=== PATIENT | male | born 1940 | race Caucasian/White ===

== ENCOUNTER 2016-12-17 14:57 | Observation (INO) ==
--- NOTE | 2016-12-17 15:12 | Emergency Department Note ---
Disposition Clinical Impression: Confusion, Slurred speech Disposition: Admitted As Inpatient Condition: Good Referrals: NO,PCP [Primary Care Provider] - Forms: ED Satisfaction Letter Altered Mental Status HPI - General Chief Complaint: ED Altered Mental Status Stated Complaint: AMS Time Seen by Provider: 12/17/16 15:08 Source: patient, family Mode of arrival: private vehicle Limitations: altered mental status Nursing Notes Reviewed: Yes Vital Signs Reviewed: Yes - History of Present Illness HPI Narrative: 76-year-old male presents to the ER with a chief complaint of altered mental status. Aneudy she reports that a few days ago she started noticing a change in his speech. She reports that today she was at her appointment and when they were leaving that he was confused and did not recognize her or remember where they parked the car. She reports that she got help and was transported up here for evaluation. She reports that he had a stroke many years ago at another facility. She reports at that time his deficits were difficulty speaking. She also states that for the last several days his blood pressure has been elevated in the 200 systolic at home. Patient is followed by cardiology who manages his antihypertensives. Patient is on aspirin and Plavix. He currently complains of feeling lightheaded. He denies numbness tingling. No other complaints. MD complaint: altered mental status Onset (ago): hour(s) Timing confirmed by: spouse Pain Severity: none Context: other (hx of cva years ago) Associated symptoms: Reports: other (lightheaded). Denies: chest pain, cough, fever, headaches, syncope - Related Data Home Medications Medication Instructions Recorded Confirmed Aspirin [Adult Low Dose Aspirin EC] 81 mg PO DAILY 12/20/15 12/17/16 Atorvastatin [Lipitor] 40 mg PO HS 12/20/15 12/17/16 Clopidogrel Bisulfate [Plavix] 75 mg PO DAILY 12/20/15 12/17/16 Ezetimibe [Zetia] 10 mg PO DAILY 12/20/15 12/17/16 Lisinopril [Zestril] 20 mg PO BID 12/20/15 12/17/16 Metoprolol [Lopressor] 100 mg PO QPM 12/20/15 12/17/16 Omeprazole 20 mg PO DAILY 02/23/16 12/17/16 Tamsulosin [Flomax] 0.4 mg PO DAILY 02/23/16 12/17/16 Albuterol Sulfate [Ventolin Hfa] 2 puff IH Q4H PRN 12/17/16 12/17/16 Brimonidine Tartrate [Brimonidine 1 drop RIGHT EYE BID 12/17/16 12/17/16 Tartrate] BuPROPion XL (24 HR) [Wellbutrin 150 mg PO DAILY 12/17/16 12/17/16 XL] Budesonide/Formoterol 160/4.5 2 puff IH BIDR 12/17/16 12/17/16 [Symbicort 160/4.5] Finasteride [Proscar] 5 mg PO DAILY 12/17/16 12/17/16 Fluticasone/Vilanterol [Breo 1 puff IH DAILY 12/17/16 12/17/16 Ellipta 200-25 Mcg INH] Furosemide [Lasix] 40 mg PO DAILY 12/17/16 12/17/16 Metoprolol [Lopressor] 50 mg PO QAM 12/17/16 12/17/16 Oxygen 2 l NS AD 12/17/16 12/17/16 Tiotropium [Spiriva] 18 mcg IH DAILY 12/17/16 12/17/16 Allergies Allergy/AdvReac Type Severity Reaction Status Date / Time No Known Allergies Allergy Verified 09/09/16 10:54 All systems ED: reviewed and negative except as stated. Constitutional: Denies: fever Cardiovascular: Denies: chest pain Respiratory: Denies: cough, dyspnea Gastrointestinal: Denies: abdominal pain, nausea, vomiting Neurological: Reports: other (lightheaded). Denies: headache, numbness Past Medical History - Past Medical History Attestation: Yes The following information was validated with the patient. Source: patient Medical history: Reports: asthma, CHF, GERD, hyperlipidemia, hypertension, myocardial infarction Surgical history: Reports: angioplasty/stent, LE stent(s) Psychiatric history: Reports: depression - Social History Smoking Status: Former smoker Smokeless Tobacco Status: No Alcohol use: Reports: none Drug use: Reports: none Physical Exam - General Limitations: no limitations General appearance: alert, in no apparent distress - Head Head exam: atraumatic, normocephalic, normal inspection - Eye Eye exam: Present: normal appearance, PERRL, EOMI - ENT ENT exam: normal exam, normal oropharynx - Neck Neck exam: Present: normal inspection, full ROM - Chest Chest inspection: Present: normal inspection, symmetric chest wall rise - Respiratory Respiratory exam: Present: normal lung sounds bilaterally - Cardiovascular Cardiovascular exam: Present: normal rhythm, bradycardia, normal heart sounds - Abdominal Exam Abdominal exam: Present: soft, Non-Tender. Absent: tenderness - Extremities Exam Extremities exam: Present: normal inspection, full ROM - Expanded Upper Extremity Exam Shoulder exam: Present: normal inspection, full ROM Arm exam: Present: normal inspection, full ROM Elbow exam: Present: normal inspection, full ROM Forearm/Wrist exam: Present: normal inspection, full ROM Hand exam: Present: normal inspection, full ROM - Expanded Lower Extremity Exam Hip/Pelvis exam: Present: normal inspection, full ROM Upper leg exam: Present: normal inspection, full ROM Knee exam: Present: normal inspection, full ROM Lower leg exam: Present: normal inspection, full ROM Ankle exam: Present: normal inspection, full ROM Foot/toe exam: Present: normal inspection, full ROM - Neurological Exam Neurological exam: Present: alert, oriented X3, CN II-XII intact. Absent: motor sensory deficit - Expanded Neurological Exam Patient oriented to: Present: person, place, time Speech: Present: expressive aphasia (Patient has some slurring of speech.) Cranial nerves: EOM function (II, III, IV, ): Normal, facial sensation (V): Normal, spinal accessory function (XI): Normal, tongue deviation (XII): Normal Cerebellar function: finger to nose: Normal, heel to salmon: Normal Motor strength - LUE: 5/5 Motor strength - RUE: 5/5 Motor strength - LLE: 5/5 Motor strength - RLE: 5/5 Upper motor neuron exam: levy neglect: Absent bilaterally, pronator drift: Absent bilaterally Sensory exam upper extremity: light touch: Normal Sensory exam lower extremity: light touch: Normal Coma Scale Eye Opening: Spontaneous Coma Scale Motor Response: Obeys Commands Coma Scale Verbal Response: Oriented Coma Scale Total: 15 - Psychiatric Psychiatric exam: Present: normal affect, normal mood - Skin Skin exam: Present: warm, dry, intact, normal color Course Course Narrative: Patient seen and examined. Vital signs reviewed. Spouse reports that symptoms started roughly 2 days ago with the change in speech. Today he started having confusion and not recognizing her. Given his difficulty speaking for 2 days patient is outside the timeframe for stroke alert. Vital Signs Temperature 98.6 F 12/17/16 15:00 Pulse Rate 58 12/17/16 15:00 Respiratory Rate 18 12/17/16 15:00 Blood Pressure 180/96 12/17/16 15:00 O2 Sat by Pulse Oximetry 96 12/17/16 15:00 Temperature 98.6 F 12/17/16 15:00 Pulse Rate 53 12/17/16 16:31 Respiratory Rate 18 12/17/16 16:31 Blood Pressure 177/103 12/17/16 16:31 O2 Sat by Pulse Oximetry 96 12/17/16 16:31 Oxygen Delivery Oxygen Delivery Room Air Altered Mental Status - MDM Narrative Medical decision making narrative: 76-year-old male presents to the ER due to confusion and slurred speech. Speech difficulty started roughly 2 days ago. Family reports that today while leaving her appointment he does not know who she was seemed confused. Reports a history of stroke many years ago at another facility. Patient is alert and oriented 3 nonfocal neurologic exam but still seems confused. We will get to the hospitalist for further management. - Lab Data Lab results reviewed: Yes I reviewed the patient's lab results. Result diagrams: 12/17/16 15:12 12/17/16 15:12 Lab Results 12/17/16 12/17/16 12/17/16 Range/Units 15:01 15:12 15:12 WBC 10.9 (4.3-11.1) K/mcL RBC 5.56 H (4.19-5.50) M/mcL Hgb 15.3 (12.9-16.9) g/dL Hct 46.8 (37.5-50.1) % MCV 84.2 (83.0-100.0) fL MCH 27.5 L (28.0-33.3) pg MCHC 32.7 (31.6-35.5) g/dL RDW 14.0 (11.5-14.5) % Plt Count 281 (140-400) K/mcL MPV 9.9 (9.4-12.4) fL Immature Gran % 0.4 (0-4) % Seg Neutrophils % 56.8 % Lymphocytes % 30.0 % Monocytes % 11.0 % Eosinophils % 1.5 % Basophils % 0.3 % Neutrophils # 6.2 (1.6-8.9) K/mcL Lymphocytes # 3.3 (0.6-4.6) K/mcL Monocytes # 1.2 (0.0-1.3) K/mcL Eosinophils # 0.2 (0.0-0.6) K/mcL Basophils # 0.0 (0.0-0.2) K/mcL PT 11.1 (9.4-12.1) Seconds INR 1.0 APTT 33.8 (26.0-36.0) Seconds Sodium (136-145) mEq/L Potassium (3.5-4.5) mEq/L Chloride (98-109) mEq/L Carbon Dioxide (19-29) mEq/L BUN (8-26) mg/dL Creatinine (0.72-1.25) mg/dL Est GFR ( Amer) (> 60) Est GFR (Non-Af Amer) (> 60) BUN/Creatinine Ratio (6-26) Glucose (70-99) mg/dL POC Glucose 95 H (58-89) Calculated Osmolality (280-300) Calcium (8.6-10.8) mg/dL Total Bilirubin (0.2-1.2) mg/dL Direct Bilirubin (0.0-0.5) mg/dL Indirect Bilirubin (0.0-1.2) mg/dL AST (5-34) Units/L ALT (0-55) Units/L Alkaline Phosphatase (38-126) Units/L Troponin I (0-0.03) ng/mL Serum Total Protein (6.0-8.3) g/dL Albumin (3.5-5.0) g/dL Globulin (2.4-3.5) g/dL Albumin/Globulin Ratio (1.1-2.2) Urine Color (Yellow) Urine Clarity (Clear) Urine pH (5.0-8.0) pH Units Ur Specific [place] (1.010-1.025) Urine Protein (Neg-Trace) mg/dL Urine Glucose (UA) (Normal) mg/dL Urine Ketones (Negative) mg/dL Urine Blood (Negative) Urine Nitrite (Negative) Urine Bilirubin (Negative) Urine Urobilinogen (Normal) mg/dL Ur Leukocyte Esterase (Negative) Urine Microscopic RBC (0-3) per hpf Urine Microscopic WBC (0-3) per hpf Ur Squamous Epith Cells (None-Few) per lpf Urine Bacteria (None-Few) per hpf Hyaline Casts (None-Few) per lpf Ur Culture Indicated? (NO) Urine Opiates Screen (Xdninn=575) ng/mL Ur Barbiturates Screen (Bfpgft=084) ng/mL Ur Phencyclidine Scrn (Cutoff=25) ng/mL Ur Amphetamines Screen (Kwuyvp=3368) ng/mL U Benzodiazepines Scrn (Evrsdb=841) ng/mL Urine Cocaine Screen (Cutoff= 300) ng/mL U Marijuana (THC) Screen (Cutoff = 50) ng/mL 12/17/16 12/17/16 12/17/16 Range/Units 15:12 15:12 16:45 WBC (4.3-11.1) K/mcL RBC (4.19-5.50) M/mcL Hgb (12.9-16.9) g/dL Hct (37.5-50.1) % MCV (83.0-100.0) fL MCH (28.0-33.3) pg MCHC (31.6-35.5) g/dL RDW (11.5-14.5) % Plt Count (140-400) K/mcL MPV (9.4-12.4) fL Immature Gran % (0-4) % Seg Neutrophils % % Lymphocytes % % Monocytes % % Eosinophils % % Basophils % % Neutrophils # (1.6-8.9) K/mcL Lymphocytes # (0.6-4.6) K/mcL Monocytes # (0.0-1.3) K/mcL Eosinophils # (0.0-0.6) K/mcL Basophils # (0.0-0.2) K/mcL PT (9.4-12.1) Seconds INR APTT (26.0-36.0) Seconds Sodium 140 (136-145) mEq/L Potassium 3.7 (3.5-4.5) mEq/L Chloride 100 (98-109) mEq/L Carbon Dioxide 30 H (19-29) mEq/L BUN 16 (8-26) mg/dL Creatinine 1.22 (0.72-1.25) mg/dL Est GFR ( Amer) > 60 (> 60) Est GFR (Non-Af Amer) 58 L (> 60) BUN/Creatinine Ratio 13 (6-26) Glucose 101 H (70-99) mg/dL POC Glucose (58-89) Calculated Osmolality 291 (280-300) Calcium 8.8 (8.6-10.8) mg/dL Total Bilirubin 0.8 (0.2-1.2) mg/dL Direct Bilirubin 0.3 (0.0-0.5) mg/dL Indirect Bilirubin 0.5 (0.0-1.2) mg/dL AST 15 (5-34) Units/L ALT 18 (0-55) Units/L Alkaline Phosphatase 84 (38-126) Units/L Troponin I 0.01 (0-0.03) ng/mL Serum Total Protein 7.0 (6.0-8.3) g/dL Albumin 3.9 (3.5-5.0) g/dL Globulin 3.1 (2.4-3.5) g/dL Albumin/Globulin Ratio 1.3 (1.1-2.2) Urine Color Yellow (Yellow) Urine Clarity Cloudy A (Clear) Urine pH 6.5 (5.0-8.0) pH Units Ur Specific [place] 1.022 (1.010-1.025) Urine Protein 30 H (Neg-Trace) mg/dL Urine Glucose (UA) Normal (Normal) mg/dL Urine Ketones Negative (Negative) mg/dL Urine Blood Negative (Negative) Urine Nitrite Negative (Negative) Urine Bilirubin Negative (Negative) Urine Urobilinogen Normal (Normal) mg/dL Ur Leukocyte Esterase Negative (Negative) Urine Microscopic RBC 0-3 (0-3) per hpf Urine Microscopic WBC 0-3 (0-3) per hpf Ur Squamous Epith Cells Moderate H (None-Few) per lpf Urine Bacteria None Seen (None-Few) per hpf Hyaline Casts None Seen (None-Few) per lpf Ur Culture Indicated? NO (NO) Urine Opiates Screen (Yzwxgb=335) ng/mL Ur Barbiturates Screen (Mtpxas=700) ng/mL Ur Phencyclidine Scrn (Cutoff=25) ng/mL Ur Amphetamines Screen (Ufvpfb=3165) ng/mL U Benzodiazepines Scrn (Edlsmc=914) ng/mL Urine Cocaine Screen (Cutoff= 300) ng/mL U Marijuana (THC) Screen (Cutoff = 50) ng/mL 12/17/16 Range/Units 16:45 WBC (4.3-11.1) K/mcL RBC (4.19-5.50) M/mcL Hgb (12.9-16.9) g/dL Hct (37.5-50.1) % MCV (83.0-100.0) fL MCH (28.0-33.3) pg MCHC (31.6-35.5) g/dL RDW (11.5-14.5) % Plt Count (140-400) K/mcL MPV (9.4-12.4) fL Immature Gran % (0-4) % Seg Neutrophils % % Lymphocytes % % Monocytes % % Eosinophils % % Basophils % % Neutrophils # (1.6-8.9) K/mcL Lymphocytes # (0.6-4.6) K/mcL Monocytes # (0.0-1.3) K/mcL Eosinophils # (0.0-0.6) K/mcL Basophils # (0.0-0.2) K/mcL PT (9.4-12.1) Seconds INR APTT (26.0-36.0) Seconds Sodium (136-145) mEq/L Potassium (3.5-4.5) mEq/L Chloride (98-109) mEq/L Carbon Dioxide (19-29) mEq/L BUN (8-26) mg/dL Creatinine (0.72-1.25) mg/dL Est GFR ( Amer) (> 60) Est GFR (Non-Af Amer) (> 60) BUN/Creatinine Ratio (6-26) Glucose (70-99) mg/dL POC Glucose (58-89) Calculated Osmolality (280-300) Calcium (8.6-10.8) mg/dL Total Bilirubin (0.2-1.2) mg/dL Direct Bilirubin (0.0-0.5) mg/dL Indirect Bilirubin (0.0-1.2) mg/dL AST (5-34) Units/L ALT (0-55) Units/L Alkaline Phosphatase (38-126) Units/L Troponin I (0-0.03) ng/mL Serum Total Protein (6.0-8.3) g/dL Albumin (3.5-5.0) g/dL Globulin (2.4-3.5) g/dL Albumin/Globulin Ratio (1.1-2.2) Urine Color (Yellow) Urine Clarity (Clear) Urine pH (5.0-8.0) pH Units Ur Specific [place] (1.010-1.025) Urine Protein (Neg-Trace) mg/dL Urine Glucose (UA) (Normal) mg/dL Urine Ketones (Negative) mg/dL Urine Blood (Negative) Urine Nitrite (Negative) Urine Bilirubin (Negative) Urine Urobilinogen (Normal) mg/dL Ur Leukocyte Esterase (Negative) Urine Microscopic RBC (0-3) per hpf Urine Microscopic WBC (0-3) per hpf Ur Squamous Epith Cells (None-Few) per lpf Urine Bacteria (None-Few) per hpf Hyaline Casts (None-Few) per lpf Ur Culture Indicated? (NO) Urine Opiates Screen Negative (Zkcjgp=709) ng/mL Ur Barbiturates Screen Negative (Bsoawl=060) ng/mL Ur Phencyclidine Scrn Negative (Cutoff=25) ng/mL Ur Amphetamines Screen Negative (Uzgnvz=1031) ng/mL U Benzodiazepines Scrn Negative (Cuxsql=907) ng/mL Urine Cocaine Screen Negative (Cutoff= 300) ng/mL U Marijuana (THC) Screen Negative (Cutoff = 50) ng/mL - Radiology Data Radiology results reviewed: Yes I reviewed the patient's radiology results. Chest X-Ray 12/17/16 15:09 IMPRESSION: No acute cardiopulmonary disease. D/ / 12/17/2016 15:50:41 Ciro Mckay MD / jacob Interpreting Provider: Ciro Mckay MD Head CT 12/17/16 15:09 IMPRESSION: 1. No acute intracranial abnormality. 2. 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 D/ / Christiano Clements MD / Christiano Clements MD Interpreting Provider: Christiano Clements MD - EKG Data EKG attestation: Yes I reviewed and interpreted this EKG. EKG results narrative: EKG demonstrates sinus bradycardia with a rate of 51 bpm. Normal axis. KS interval 186 QRS duration [address] elevations or depressions. No acute ischemic findings. TPA Checklist - LKW: 3-4.5 hrs Add. Contraindications Patient/family understanding: The patient/family members have been counseled and understood the risk, benefit , and alternatives of treatment. S.Vandana - Elida Situation: Demographics, MOA Background: Presenting Complaint, Relevant PMH, Meds, & Allergies Assessment: Vital Signs, Course and respsone to treatment, Exam Concerns, Patient/Family Expectation, Pertinant Lab Results, Outstanding Labs Recommendation: Barrier(s) to disposition, Recommendation based on pending studies, treatments, or consults [id number].[id number] Report Given to: Sofia Marrero Repor Time: 17:35 Attestation Statement - Attestation Attestation: I examined this patient and my medical decision-making was reviewed with the MANAGER [employer]/PA/Advanced Practice Nurse/Resident Physician. I agree with the documented findings, disposition and treatment plan as described except to the extent set forth below. Patient to the emergency department with confusion. History provided by his significant other. She states he has had slurred speech for "a couple days." Today they were leaving her doctor's appointment and he could not remember where he left the car. Brings him in for evaluation. On examination he is awake alert. He sitting on the side of the bed. He is oriented 3. Following commands. NIH scale was 0. He was able to read words off the paper describe a picture with no difficulties. Plan. Altered mental status workup. The patient's workup is unremarkable. He is admitted for slurred speech and altered mental status.
[2016-12-17 15:21] LABS: Basophils % 0.3 %; Eosinophils # 0.2 K/mcL (0.0-0.6); Eosinophils % 1.5 %; Hematocrit 46.8 % (37.5-50.1); Hemoglobin 15.3 g/dL (12.9-16.9); Immature Granulocytes % 0.4 % (0-4); Lymphocytes # 3.3 K/mcL (0.6-4.6); Mean Corpuscular HGB Conc 32.7 g/dL (31.6-35.5); Mean Corpuscular Hemoglobin 27.5 pg (28.0-33.3); Mean Corpuscular Volume 84.2 fL (83.0-100.0); Mean Platelet Volume 9.9 fL (9.4-12.4); Monocytes # 1.2 K/mcL (0.0-1.3); Neutrophils # 6.2 K/mcL (1.6-8.9); Platelet Count 281 K/mcL (140-400); Red Blood Count 5.56 M/mcL (4.19-5.50); Segmented Neutrophils % 56.8 %
[2016-12-17 15:31] LABS: Prothrombin Time 11.1 Seconds (9.4-12.1)
[2016-12-17 15:33] LABS: Activated Partial Thrombo Time 33.8 Seconds (26.0-36.0)
[2016-12-17 15:37] LABS: Alanine Aminotransferase 18 Units/L (0-55); Albumin 3.9 g/dL (3.5-5.0); Albumin/Globulin Ratio 1.3 (1.1-2.2); Alkaline Phosphatase 84 Units/L (38-126); Aspartate Amino Transferase 15 Units/L (5-34); BUN/Creatinine Ratio 13 (6-26); Bilirubin,Direct 0.3 mg/dL (0.0-0.5); Bilirubin,Indirect 0.5 mg/dL (0.0-1.2); Bilirubin,Total 0.8 mg/dL (0.2-1.2); Blood Urea Nitrogen 16 mg/dL (8-26); Calcium 8.8 mg/dL (8.6-10.8); Carbon Dioxide 30 mEq/L (19-29); Chloride 100 mEq/L (98-109); Globulin 3.1 g/dL (2.4-3.5); Glucose 101 mg/dL (70-99); Osmolality,Calculated 291 (280-300); Potassium 3.7 mEq/L (3.5-4.5); Sodium 140 mEq/L (136-145); eGFR For African Americans > 60 (> 60); eGFR For Non-African Americans 58 (> 60)
[2016-12-17 16:48] LABS: Bilirubin,Urine Negative (Negative); Blood,Urine Negative (Negative); Clarity,Urine Cloudy (Clear); Color,Urine Yellow (Yellow); Glucose,Urine (UA) Normal (Normal); Ketones,Urine Negative (Negative); Leukocyte Esterase,Urine Negative (Negative); Nitrite,Urine Negative (Negative); PH,Urine 6.5 pH Units (5.0-8.0); Protein,Urine 30 mg/dL (Neg-Trace); Specific Gravity,Urine 1.022 (1.010-1.025); Urobilinogen,Urine Normal (Normal)
[2016-12-17 16:50] LABS: Bacteria,Urine None Seen per hpf (None-Few); Hyaline Casts,Urine None Seen per lpf (None-Few); RBC,Urine 0-3 per hpf (0-3); Squamous Epithelial Cell,Urine Moderate per lpf (None-Few); WBC,Urine 0-3 per hpf (0-3)
[2016-12-17 16:55] LABS: Amphetamine Screen,Urine Negative ng/mL (Cutoff=1000); Barbiturate Screen,Urine Negative ng/mL (Cutoff=200); Benzodiazepines Screen,Urine Negative ng/mL (Cutoff=200); Cannabinoid Screen,Urine Negative ng/mL (Cutoff = 50); Cocaine Screen,Urine Negative ng/mL (Cutoff= 300); Opiate Screen,Urine Negative ng/mL (Cutoff=300); Phencyclidine Screen,Urine Negative ng/mL (Cutoff=25)
[2016-12-17] MEDS ORDERED: Naloxone 0.4 MG/ML INJ IVP PRN (21:15)
[2016-12-17] MEDS ORDERED: Furosemide 40 MG TABLET PO ONE (21:30)
--- NOTE | 2016-12-17 21:47 | Internal Med History&Physical ---
Date of Encounter: 12/18/16 Time of Encounter: 21:32 Assessment and Plan (1) Confusion Current visit: Yes Status: Acute Patient with transient confusion earlier today, where he did not recognize his , did not know where his car was and was trying to unlock the car using nail clippers instead of car keys. Symptoms have now resolved, patient's neuro exam is normal. CT of head showed no acute intracranial abnormalities, and diffuse cerebral atrophy with chronic small vessel changes. EKG showed sinus bradycardia with HR 57. Patient's most recent echocardiogram 09/25/16 showed EF of 60-65%, mild LVH, and mild LV diastolic dysfunction. Continuous cardiac cath rn repeat echocardiogram MRI of brain MRA of head and neck Lipid panel with AM labs Consult to neurology Consult to PT/OT and speech therapy. (2) Slurred speech Current visit: Yes Status: Acute Patient with transient confusion earlier today, where he did not recognize his , did not know where his car was and was trying to unlock the car using nail clippers instead of car keys. Patient's reported patient has had slurred speech for the last few days. Confusion symptoms have now resolved, patient's neuro exam is normal. Though patient reports having trouble swallowing jello earlier. CT of head showed no acute intracranial abnormalities , and diffuse cerebral atrophy with chronic small vessel changes. EKG showed sinus bradycardia with HR 57. Patient's most recent echocardiogram 09/25/16 showed EF of 60-65%, mild LVH, and mild LV diastolic dysfunction. repeat echocardiogram MRI of brain MRA of head and neck Lipid panel with AM labs Consult to neurology Consult to PT/OT and speech therapy. (3) Hypertension Current visit: Yes Status: Acute Patient reports blood pressures have been running high at home, and on presentation, his BPs were 170s-180s systolic. Patient also complaining of increased LE swelling. On exam, he has +1 BLE edema. One time extra dose of lasix this evening of 40mg PO Continue home doses of Lasix (40mg daily), metoprolol, lisinopril 10mg Hydralazine IVP for SBP > 180 or DBP > 100. Qualifiers: Hypertension type: essential hypertension Qualified Code(s): I10 - Essential (primary) hypertension (4) Peripheral edema Current visit: No Status: Acute Patient complaining of increased LE swelling. On exam, he has +1 BLE edema. anti-embolic stockings One time extra dose of lasix this evening, resume 40mg daily tomorrow. (5) DVT prophylaxis Current visit: Yes Status: Acute Ambulate with assistance anti-embolic stockings Lovenox 40mg SQ daily Internal Medicine - H&P: HPI Chief complaint: confusion Admitted From: Emergency Dept Plans for Post Hospital Care: Home History of present illness: Mr. Moon is a 76 year old male with hypertension, hyperlipidemia, coronary artery disease, COPD, history of CVA who presented to the emergency department today because his noticed he was confused and disoriented. Patient had a sudden onset of confusion, and disorientation, where he did not recognize his , he could not remember where he parked his car, and according to his is trying to open his car with nail clippers instead of the car keys. She is also reported that his speech has been slurred for several days, though patient denies noticing that his speech is slurred. Patient denies any headache , chest pain, palpitations, shortness of breath. Reports he is felt lightheaded from time to time today. Patient reports he had trouble while swallowing Jell-O and coughed while trying Jell-O today. He denies any numbness or tingling. Denies any current confusion. Denies any recent fever, chills, sweats, body aches. The nausea vomiting, diarrhea, abdominal pain. He has noticed increased swelling in his bilateral lower extremities, and in his abdomen. Patient reports his blood pressures been running high at home in the 200 systolic. Presentation to the ED his blood pressure was elevated 170s and 180s. Evaluation in the emergency department included a head CT which showed no acute intracranial abnormality, and diffuse cerebral atrophy with chronic small vessel changes. EKG showed sinus bradycardia with heart rate of 51 with no changes from previous EKG. Chest x-ray showed no acute call cardiopulmonary disease. Patient reports he wears 2 L of oxygen at home and is satting in the high 90s on his 2 L. I am patient is alert, and oriented, in no acute distress. He has no focal neurological defects. Heart has regular rate and rhythm, lungs are clear bilaterally to auscultation. Past Med Surg Social Fam HX - Past Medical History Source: patient Medical history: asthma, CHF, GERD, hyperlipidemia, hypertension, myocardial infarction Psychiatric history: no psych history - Past Surgical History Surgical History: angioplasty/stent, LE stent(s) - Social History Smoking Status: Former smoker (60 Pack year history) Smokeless Tobacco Status: No Alcohol use: none Drug use: none - Family History Sister Hx Family Neurologic Disorders: Yes (CVA) Father Hx Family Cancer: Yes (stomach) Internal Medicine - H&P: Meds Aspirin [Adult Low Dose Aspirin EC] 81 mg PO DAILY 12/20/15 [History] Atorvastatin [Lipitor] 40 mg PO HS 12/20/15 [History] Clopidogrel Bisulfate [Plavix] 75 mg PO DAILY 12/20/15 [History] Ezetimibe [Zetia] 10 mg PO DAILY 12/20/15 [History] Lisinopril [Zestril] 20 mg PO BID 12/20/15 [History] Metoprolol [Lopressor] 100 mg PO QPM 12/20/15 [History] Omeprazole 20 mg PO DAILY 02/23/16 [History] Tamsulosin [Flomax] 0.4 mg PO DAILY 02/23/16 [History] Albuterol Sulfate [Ventolin Hfa] 2 puff IH Q4H PRN 12/17/16 [History] Brimonidine Tartrate [Brimonidine Tartrate] 1 drop RIGHT EYE BID 12/17/16 [ History] BuPROPion XL (24 HR) [Wellbutrin XL] 150 mg PO DAILY 12/17/16 [History] Budesonide/Formoterol 160/4.5 [Symbicort 160/4.5] 2 puff IH BIDR 12/17/16 [ History] Finasteride [Proscar] 5 mg PO DAILY 12/17/16 [History] Fluticasone/Vilanterol [Breo Ellipta 200-25 Mcg INH] 1 puff IH DAILY 12/17/16 [ History] Furosemide [Lasix] 40 mg PO DAILY 12/17/16 [History] Metoprolol [Lopressor] 50 mg PO QAM 12/17/16 [History] Oxygen 2 l NS AD 12/17/16 [History] Tiotropium [Spiriva] 18 mcg IH DAILY 12/17/16 [History] Allergies No Known Allergies Allergy (Verified 09/09/16 10:54) All Systems PM: A 10-system review of systems was performed and is negative for pertinent findings except as documented above in the HPI. - Constitutional Constitutional: no chills, no fever(s), no night sweats - EENT Eyes: no change in vision, no discharge, no pain, no photophobia Ears: no ear discharge, no ear pain, no tinnitus Nose, mouth and throat: no dysphagia, no nasal discharge, no neck pain, no sore throat - Cardiovascular Cardiovascular ROS IM: lightheadedness, no chest pain, no diaphoresis, no dyspnea, no palpitations, no syncope - Respiratory Respiratory: no cough, no dyspnea, no wheezing, no excessive phlegm production - Gastrointestinal Gastrointestinal: dysphagia, no abdominal pain, no diarrhea, no hematemesis, no hematochezia, no melena, no nausea, no vomiting - Musculoskeletal Musculoskeletal ROS IM: no numbness, no tingling - Integumentary Integumentary IM: no rash, no unusual bruising - Neurological Neurological ROS: confusion (earlier today, now resolved. ), no convulsions, no focal weakness, no numbness, no tingling, no tremor(s) - Hematologic/Lymphatic Hematologic/Lymphatic: no easy bruising - Constitutional Vitals: Temp Pulse Resp BP Pulse Ox 98.1 F 69 12 176/87 95 12/17/16 20:08 12/17/16 20:08 12/17/16 20:08 12/17/16 20:08 12/17/16 20:08 General appearance: Present: A&O X 3, no acute distress - Head Head exam: Present: atraumatic, normocephalic - Eye Eye exam: Present: PERRL, conjuntiva pink, sclera anicteric Pupils: Present: PERRL - Neck Neck exam general surgery: Present: supple, trachea midline. Absent: lymphadenopathy - Respiratory Respiratory exam: Present: CTAB. Absent: accessory muscle use, rales, rhonchi, wheezes - Cardiovascular Cardiovascular exam: Present: RRR, +S1, +S2. Absent: diastolic murmur, gallop, rubs, systolic murmur - GI/Abdominal GI/Abdominal exam: Present: normal bowel sounds, soft, no peritoneal signs. Absent: distended, tenderness - Extremities Exam Extremities exam: Present: pedal edema (+1 BLE edema), warm, radial pulses palpable and symetrical. Absent: calf tenderness, cyanotic - Neurological Exam Neurological exam: Present: CN II-XII intact, oriented X3, no focal deficits. Absent: pronater drift, facial droop, speech deficit - Expanded Neurological Exam Cranial Nerves: EOM's intact PM: Normal, nystagmus PM: Normal, tongue deviation PM: Normal Cerebellar function: finger to nose: Normal, heel to salmon: Normal, Romberg: Normal Neuro motor strength exam: LUE: 5, RUE: 5, LLE: 5, RLE: 5 DTR: patellar (L): 0, patellar (R): 0 - Skin Skin exam: Present: dry, intact Internal Med - H&P Results - Labs CBC & Chem 7: 12/17/16 15:12 12/17/16 15:12 Labs: All Lab Results (24 Hours) 12/17/16 12/17/16 12/17/16 Range/Units 15:01 15:12 15:12 WBC 10.9 (4.3-11.1) K/mcL RBC 5.56 H (4.19-5.50) M/mcL Hgb 15.3 (12.9-16.9) g/dL Hct 46.8 (37.5-50.1) % MCV 84.2 (83.0-100.0) fL MCH 27.5 L (28.0-33.3) pg MCHC 32.7 (31.6-35.5) g/dL RDW 14.0 (11.5-14.5) % Plt Count 281 (140-400) K/mcL MPV 9.9 (9.4-12.4) fL Immature Gran % 0.4 (0-4) % Seg Neutrophils % 56.8 % Lymphocytes % 30.0 % Monocytes % 11.0 % Eosinophils % 1.5 % Basophils % 0.3 % Neutrophils # 6.2 (1.6-8.9) K/mcL Lymphocytes # 3.3 (0.6-4.6) K/mcL Monocytes # 1.2 (0.0-1.3) K/mcL Eosinophils # 0.2 (0.0-0.6) K/mcL Basophils # 0.0 (0.0-0.2) K/mcL PT 11.1 (9.4-12.1) Seconds INR 1.0 APTT 33.8 (26.0-36.0) Seconds Sodium (136-145) mEq/L Potassium (3.5-4.5) mEq/L Chloride (98-109) mEq/L Carbon Dioxide (19-29) mEq/L BUN (8-26) mg/dL Creatinine (0.72-1.25) mg/dL Est GFR ( Amer) (> 60) Est GFR (Non-Af Amer) (> 60) BUN/Creatinine Ratio (6-26) Glucose (70-99) mg/dL POC Glucose 95 H (58-89) Calculated Osmolality (280-300) Calcium (8.6-10.8) mg/dL Total Bilirubin (0.2-1.2) mg/dL Direct Bilirubin (0.0-0.5) mg/dL Indirect Bilirubin (0.0-1.2) mg/dL AST (5-34) Units/L ALT (0-55) Units/L Alkaline Phosphatase (38-126) Units/L Troponin I (0-0.03) ng/mL Serum Total Protein (6.0-8.3) g/dL Albumin (3.5-5.0) g/dL Globulin (2.4-3.5) g/dL Albumin/Globulin Ratio (1.1-2.2) Urine Color (Yellow) Urine Clarity (Clear) Urine pH (5.0-8.0) pH Units Ur Specific [place] (1.010-1.025) Urine Protein (Neg-Trace) mg/dL Urine Glucose (UA) (Normal) mg/dL Urine Ketones (Negative) mg/dL Urine Blood (Negative) Urine Nitrite (Negative) Urine Bilirubin (Negative) Urine Urobilinogen (Normal) mg/dL Ur Leukocyte Esterase (Negative) Urine Microscopic RBC (0-3) per hpf Urine Microscopic WBC (0-3) per hpf Ur Squamous Epith Cells (None-Few) per lpf Urine Bacteria (None-Few) per hpf Hyaline Casts (None-Few) per lpf Ur Culture Indicated? (NO) Urine Opiates Screen (Igshgt=413) ng/mL Ur Barbiturates Screen (Fzjlee=063) ng/mL Ur Phencyclidine Scrn (Cutoff=25) ng/mL Ur Amphetamines Screen (Cqjngo=9119) ng/mL U Benzodiazepines Scrn (Llprdx=802) ng/mL Urine Cocaine Screen (Cutoff= 300) ng/mL U Marijuana (THC) Screen (Cutoff = 50) ng/mL 12/17/16 12/17/16 12/17/16 Range/Units 15:12 15:12 16:45 WBC (4.3-11.1) K/mcL RBC (4.19-5.50) M/mcL Hgb (12.9-16.9) g/dL Hct (37.5-50.1) % MCV (83.0-100.0) fL MCH (28.0-33.3) pg MCHC (31.6-35.5) g/dL RDW (11.5-14.5) % Plt Count (140-400) K/mcL MPV (9.4-12.4) fL Immature Gran % (0-4) % Seg Neutrophils % % Lymphocytes % % Monocytes % % Eosinophils % % Basophils % % Neutrophils # (1.6-8.9) K/mcL Lymphocytes # (0.6-4.6) K/mcL Monocytes # (0.0-1.3) K/mcL Eosinophils # (0.0-0.6) K/mcL Basophils # (0.0-0.2) K/mcL PT (9.4-12.1) Seconds INR APTT (26.0-36.0) Seconds Sodium 140 (136-145) mEq/L Potassium 3.7 (3.5-4.5) mEq/L Chloride 100 (98-109) mEq/L Carbon Dioxide 30 H (19-29) mEq/L BUN 16 (8-26) mg/dL Creatinine 1.22 (0.72-1.25) mg/dL Est GFR ( Amer) > 60 (> 60) Est GFR (Non-Af Amer) 58 L (> 60) BUN/Creatinine Ratio 13 (6-26) Glucose 101 H (70-99) mg/dL POC Glucose (58-89) Calculated Osmolality 291 (280-300) Calcium 8.8 (8.6-10.8) mg/dL Total Bilirubin 0.8 (0.2-1.2) mg/dL Direct Bilirubin 0.3 (0.0-0.5) mg/dL Indirect Bilirubin 0.5 (0.0-1.2) mg/dL AST 15 (5-34) Units/L ALT 18 (0-55) Units/L Alkaline Phosphatase 84 (38-126) Units/L Troponin I 0.01 (0-0.03) ng/mL Serum Total Protein 7.0 (6.0-8.3) g/dL Albumin 3.9 (3.5-5.0) g/dL Globulin 3.1 (2.4-3.5) g/dL Albumin/Globulin Ratio 1.3 (1.1-2.2) Urine Color Yellow (Yellow) Urine Clarity Cloudy A (Clear) Urine pH 6.5 (5.0-8.0) pH Units Ur Specific [place] 1.022 (1.010-1.025) Urine Protein 30 H (Neg-Trace) mg/dL Urine Glucose (UA) Normal (Normal) mg/dL Urine Ketones Negative (Negative) mg/dL Urine Blood Negative (Negative) Urine Nitrite Negative (Negative) Urine Bilirubin Negative (Negative) Urine Urobilinogen Normal (Normal) mg/dL Ur Leukocyte Esterase Negative (Negative) Urine Microscopic RBC 0-3 (0-3) per hpf Urine Microscopic WBC 0-3 (0-3) per hpf Ur Squamous Epith Cells Moderate H (None-Few) per lpf Urine Bacteria None Seen (None-Few) per hpf Hyaline Casts None Seen (None-Few) per lpf Ur Culture Indicated? NO (NO) Urine Opiates Screen (Nnkacg=438) ng/mL Ur Barbiturates Screen (Zrsmlt=734) ng/mL Ur Phencyclidine Scrn (Cutoff=25) ng/mL Ur Amphetamines Screen (Jsexhb=5506) ng/mL U Benzodiazepines Scrn (Iierqj=195) ng/mL Urine Cocaine Screen (Cutoff= 300) ng/mL U Marijuana (THC) Screen (Cutoff = 50) ng/mL 12/17/16 Range/Units 16:45 WBC (4.3-11.1) K/mcL RBC (4.19-5.50) M/mcL Hgb (12.9-16.9) g/dL Hct (37.5-50.1) % MCV (83.0-100.0) fL MCH (28.0-33.3) pg MCHC (31.6-35.5) g/dL RDW (11.5-14.5) % Plt Count (140-400) K/mcL MPV (9.4-12.4) fL Immature Gran % (0-4) % Seg Neutrophils % % Lymphocytes % % Monocytes % % Eosinophils % % Basophils % % Neutrophils # (1.6-8.9) K/mcL Lymphocytes # (0.6-4.6) K/mcL Monocytes # (0.0-1.3) K/mcL Eosinophils # (0.0-0.6) K/mcL Basophils # (0.0-0.2) K/mcL PT (9.4-12.1) Seconds INR APTT (26.0-36.0) Seconds Sodium (136-145) mEq/L Potassium (3.5-4.5) mEq/L Chloride (98-109) mEq/L Carbon Dioxide (19-29) mEq/L BUN (8-26) mg/dL Creatinine (0.72-1.25) mg/dL Est GFR ( Amer) (> 60) Est GFR (Non-Af Amer) (> 60) BUN/Creatinine Ratio (6-26) Glucose (70-99) mg/dL POC Glucose (58-89) Calculated Osmolality (280-300) Calcium (8.6-10.8) mg/dL Total Bilirubin (0.2-1.2) mg/dL Direct Bilirubin (0.0-0.5) mg/dL Indirect Bilirubin (0.0-1.2) mg/dL AST (5-34) Units/L ALT (0-55) Units/L Alkaline Phosphatase (38-126) Units/L Troponin I (0-0.03) ng/mL Serum Total Protein (6.0-8.3) g/dL Albumin (3.5-5.0) g/dL Globulin (2.4-3.5) g/dL Albumin/Globulin Ratio (1.1-2.2) Urine Color (Yellow) Urine Clarity (Clear) Urine pH (5.0-8.0) pH Units Ur Specific [place] (1.010-1.025) Urine Protein (Neg-Trace) mg/dL Urine Glucose (UA) (Normal) mg/dL Urine Ketones (Negative) mg/dL Urine Blood (Negative) Urine Nitrite (Negative) Urine Bilirubin (Negative) Urine Urobilinogen (Normal) mg/dL Ur Leukocyte Esterase (Negative) Urine Microscopic RBC (0-3) per hpf Urine Microscopic WBC (0-3) per hpf Ur Squamous Epith Cells (None-Few) per lpf Urine Bacteria (None-Few) per hpf Hyaline Casts (None-Few) per lpf Ur Culture Indicated? (NO) Urine Opiates Screen Negative (Cyvrwy=375) ng/mL Ur Barbiturates Screen Negative (Amvgfw=019) ng/mL Ur Phencyclidine Scrn Negative (Cutoff=25) ng/mL Ur Amphetamines Screen Negative (Aerqzk=8132) ng/mL U Benzodiazepines Scrn Negative (Dcxihm=371) ng/mL Urine Cocaine Screen Negative (Cutoff= 300) ng/mL U Marijuana (THC) Screen Negative (Cutoff = 50) ng/mL - Diagnostic Studies CT scan - head Additional comments: Head CT 12/17/16 15:09 IMPRESSION: 1. No acute intracranial abnormality. 2. 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 D/ / Christiano Clements MD / Christiano Clements MD Interpreting Provider: Christiano Clements MD Chest x-ray Additional comments: Chest X-Ray 12/17/16 15:09 IMPRESSION: No acute cardiopulmonary disease. D/ / 12/17/2016 15:50:41 Ciro Mckay MD / jacob Interpreting Provider: Ciro Mckay MD
[2016-12-17] MEDS: Budesonide/Formoterol 160/4.5 MDI IH SCH (22:47)
[2016-12-18 03:44] LABS: ABG Base Excess 6.4 mEq/L (-2.0 to 3.0); ABG HCO3 32.3 mEQ/L (21-27); ABG Oxygen Saturation 96 % (95-98); ABG PCO2 51 mmHg (35-45); ABG PH 7.41 pH Units (7.32-7.45); ABG PO2 81 mmHg (85-104); ABG TCO2 33.9 mEq/L (20-26)
[2016-12-18 03:47] LABS: Blood Gas FiO2 28 %
[2016-12-18 03:50] LABS: Basophils % 0.2 %; Eosinophils # 0.2 K/mcL (0.0-0.6); Eosinophils % 1.7 %; Hematocrit 41.5 % (37.5-50.1); Immature Granulocytes % 0.2 % (0-4); Lymphocytes # 2.1 K/mcL (0.6-4.6); Lymphocytes % 22.7 %; Mean Corpuscular Hemoglobin 27.9 pg (28.0-33.3); Mean Corpuscular Volume 84.5 fL (83.0-100.0); Mean Platelet Volume 10.3 fL (9.4-12.4); Monocytes # 0.9 K/mcL (0.0-1.3); Monocytes % 9.8 %; Platelet Count 241 K/mcL (140-400); Red Blood Count 4.91 M/mcL (4.19-5.50); Red Cell Distribution Width 13.8 % (11.5-14.5); Segmented Neutrophils % 65.4 %
[2016-12-18 03:57] LABS: Hemoglobin 13.7 g/dL (12.9-16.9)
[2016-12-18 04:14] LABS: BUN/Creatinine Ratio 15 (6-26); Blood Urea Nitrogen 17 mg/dL (8-26); Carbon Dioxide 28 mEq/L (19-29); Chloride 103 mEq/L (98-109); Glucose 119 mg/dL (70-99); Osmolality,Calculated 295 (280-300); Potassium 3.4 mEq/L (3.5-4.5); Sodium 141 mEq/L (136-145); eGFR For African Americans > 60 (> 60); eGFR For Non-African Americans > 60 (> 60)
[2016-12-18 04:24] LABS: Chol/HDL Ratio 3.1 (0-4.9)
[2016-12-18] MEDS: *HR* Enoxaparin 40 MG/0.4 ML SYRINGE SQ SCH (05:50)
--- NOTE | 2016-12-18 06:38 | Electrocardiograph Report ---
[place] [employer] Test Date: 2016-12-17 Pat Name: Lj Moon Department: [id number] Room: 3B41 Gender: M Measuring Clerk: MIKAYLA : 1940 Requested By: Chaka Hamilton Order Number: [id number] Reading MD: Marco Antonio Wright DO Measurements Intervals [place] Rate: 51 P: 63 FL: 186 QRS: 51 QRSD: 98 T: 74 QT: 442 QTc: 420 Interpretive Statements SINUS BRADYCARDIA Electronically Signed On 12-18-2016 6:36:59 EDT by Marco Antonio Wright DO
[2016-12-18] MEDS: Furosemide 40 MG TABLET PO SCH (08:12)
[2016-12-18] MEDS: Lisinopril 20 MG TABLET PO SCH ×2 (08:12→21:04)
[2016-12-18] MEDS: Aspirin Enteric Coated 81 MG Tablet PO SCH (08:12)
[2016-12-18] MEDS: BuPROPion XL (24 HR) 150 MG TABLET PO SCH (08:12)
[2016-12-18] MEDS: Finasteride 5 MG TABLET PO SCH (08:12)
[2016-12-18] MEDS: Budesonide/Formoterol 160/4.5 MDI IH SCH ×2 (08:15→22:12)
[2016-12-18] MEDS: Tiotropium 18 MCG inhalation IH SCH (08:22)
--- NOTE | 2016-12-18 09:11 | Neurology - Consult Note ---
<LópezYou - Last Filed: 12/18/16 10:09> Date of Encounter: 12/18/16 Time of Encounter: 09:08 Assessment and Plan (1) TIA (transient ischemic attack) Current Visit: Yes Status: Acute Patient describes symptoms lasting for 30-45 minutes and currently is at his baseline mental status and physical strength Initial head CT was negative for bleeding or infarct, but will further evaluate with MRI without contrast MRA head/neck and echocardiogram have also been ordered and results are pending Agree with continuing his home dose of Aspirin, Plavix, Statin, and Zetia He did report uncontrolled hypertension for at least a week prior to admission and will likely benefit from adjustment of home anti-hypertensives upon discharge Appreciate PT/OT/Speech evaluation Qualifiers: Qualified Code(s): G45.9 - Transient cerebral ischemic attack, unspecified History of Present Illness Chief complaint: altered mental status HPI: Mr. Moon is a 76 year old male who presents with altered mental status when he suddenly became confused and developed slurred speech. He states this happened yesterday after he dropped his off at the doctor's office. He forgot where he parked his car and did not recognized his . He also tried using his nail clippers as keys to open his car door. He states the episode lasted for about 30-45 minutes and he had generalized weakness which he required assistance to get him up to the ED. Although there is presently no family at bedside to confirm, the patient believes he is back to baseline mental status and his speech has also returned to normal. He denied any similar episodes in the past and doesn't think he's ever had a stroke in the past, although it was documented that he's had one in 2000. He is on both aspirin and plavix and states he is compliant with all his medications. Of note, he does have hypertension on multiple medications but states his blood pressures have been running in the 200's the past week. He denies any chest pain, shortness of breath, loss of consciousness, visual changes, facial droop, nausea, or vomiting. Past Med Surg Social Fam HX - Past Medical History Medical history: asthma, CHF, GERD, hyperlipidemia, hypertension, myocardial infarction Psychiatric history: no psych history - Past Surgical History Surgical History: angioplasty/stent, LE stent(s) - Social History Smoking Status: Former smoker (60 Pack year history) Smokeless Tobacco Status: No Alcohol use: none Drug use: none - Family History Sister Hx Family Neurologic Disorders: Yes (CVA) Father Hx Family Cancer: Yes (stomach) Medications and Allergies Aspirin [Adult Low Dose Aspirin EC] 81 mg PO DAILY 12/20/15 [History] Atorvastatin [Lipitor] 40 mg PO HS 12/20/15 [History] Clopidogrel Bisulfate [Plavix] 75 mg PO DAILY 12/20/15 [History] Ezetimibe [Zetia] 10 mg PO DAILY 12/20/15 [History] Lisinopril [Zestril] 20 mg PO BID 12/20/15 [History] Metoprolol [Lopressor] 100 mg PO QPM 12/20/15 [History] Omeprazole 20 mg PO DAILY 02/23/16 [History] Tamsulosin [Flomax] 0.4 mg PO DAILY 02/23/16 [History] Albuterol Sulfate [Ventolin Hfa] 2 puff IH Q4H PRN 12/17/16 [History] Brimonidine Tartrate [Brimonidine Tartrate] 1 drop RIGHT EYE BID 12/17/16 [ History] BuPROPion XL (24 HR) [Wellbutrin XL] 150 mg PO DAILY 12/17/16 [History] Budesonide/Formoterol 160/4.5 [Symbicort 160/4.5] 2 puff IH BIDR 12/17/16 [ History] Finasteride [Proscar] 5 mg PO DAILY 12/17/16 [History] Fluticasone/Vilanterol [Breo Ellipta 200-25 Mcg INH] 1 puff IH DAILY 12/17/16 [ History] Furosemide [Lasix] 40 mg PO DAILY 12/17/16 [History] Metoprolol [Lopressor] 50 mg PO QAM 12/17/16 [History] Oxygen 2 l NS AD 12/17/16 [History] Tiotropium [Spiriva] 18 mcg IH DAILY 12/17/16 [History] Allergies No Known Allergies Allergy (Verified 09/09/16 10:54) All Systems: A 10-system review of systems was performed and is negative for pertinent findings except as documented above in the HPI. - Constitutional Constitutional ROS IM: weakness, no fever(s), no frequent falls, no headache(s) - Nose, Mouth, Throat Nose, mouth and throat: no abnormal hearing, no dizziness, no dysphagia, no headache(s) - Cardiovascular Cardiovascular ROS IM: no chest pain, no chest pain at rest, no dyspnea, no irregular heart rhythm, no lightheadedness, no syncope - Respiratory Respiratory IM: no cough, no dyspnea on exertion, no wheezing - Gastrointestinal Gastrointestinal: no abdominal pain, no diarrhea, no hematochezia, no melena, no nausea, no vomiting - Musculoskeletal Musculoskeletal ROS IM: no numbness, no tingling Physical Examination - Vital Signs Vital Signs: Initial Vital Signs Temp Pulse Resp BP Pulse Ox 98.6 F 58 18 180/96 96 12/17/16 15:00 12/17/16 15:00 12/17/16 15:00 12/17/16 15:00 12/17/16 15:00 - Constitutional General appearance: comfortable - Neurologic Sensorimotor examination: intact Detailed motor examination: full strength in all major muscle groups Motor examination - right side: 5/5: deltoids, biceps, triceps, director of field sales, hip flexors, quadriceps Motor examination - left side: 5/5: deltoids, biceps, triceps, hip flexors, director of field sales , quadriceps Detailed sensory examination: intact Reflex and gait examination: intact Reflexes: Biceps: 2+, Brachioradialis: 2+, Patella: 2+ Mental Status Examination: awake, alert, oriented to person, oriented to place, oriented to time, follows commands appropriately, answers questions appropriately, no agnosia, no aphasia, no aproxia Cranial nerve examination: PERRL, EOMI, visual deng intact, corneal reflexes brisk symmetrically, sensory to face intact, mastication intact, no facial asymmetry is present, no dysarthria, hearing is intact symmetrically, soft palate elevates bilaterally upon phonation, gag reflex intact, flexes SCM and trapezius muscles symmetrically with full power, tongue protrudes midline, no atrophy or facial fasiculations present Cerebellar examination: no dysmetria, performs finger to nose and heel to salmon symmetrically without ataxia, no gait ataxia, no truncal ataxia, no difficulty with rapid alternating movements Results - Laboratory Findings CBC and BMP: 12/18/16 03:11 12/18/16 03:11 Abnormal lab findings: Abnormal lab results MCH 27.9 pg (28.0-33.3) L 12/18/16 03:11 ABG pCO2 51 mmHg (35-45) H 12/18/16 03:33 ABG pO2 81 mmHg (85-104) L 12/18/16 03:33 ABG HCO3 32.3 mEQ/L (21-27) H 12/18/16 03:33 ABG Total CO2 33.9 mEq/L (20-26) H 12/18/16 03:33 ABG Base Excess 6.4 mEq/L (-2.0 to 3.0) H 12/18/16 03:33 Potassium 3.4 mEq/L (3.5-4.5) L 12/18/16 03:11 Glucose 119 mg/dL (70-99) H 12/18/16 03:11 POC Glucose 162 (58-89) H 12/18/16 06:47 HDL Cholesterol 30 mg/dL (40-59) L 12/18/16 03:11 Urine Clarity Cloudy (Clear) A 12/17/16 16:45 Urine Protein 30 mg/dL (Neg-Trace) H 12/17/16 16:45 Ur Squamous Epith Cells Moderate per lpf (None-Few) H 12/17/16 16:45 Consult Discharge Plan - Plan Referrals: Francis Chamberlain MD [Primary Care Provider] - 12/25/16 2:00 pm <Luis Armando Mittal - Last Filed: 12/18/16 15:45> Time of Encounter: 15:43 Assessment and Plan (1) Transient global amnesia Current Visit: Yes Status: Acute I agree with Dr. Dawn's assessment as stated in his note. I agree with his differential diagnosis. Transient global amnesia however is yet another possible differential in this case. However, treatment recommendations would remain the same. The documentation in the history of HPI and plan were at least partially created by [employer] voice recognition technology by Dr. Mittal. Errors in grammar, wording or other phrases may exist. If errors are found after the documentation signed, they will be addressed individually in the addendum section of this document when appropriate. History of Present Illness HPI: Mr. Moon is a 76 year old male who was seen and examined independently. I agree with Dr. Dawn's assessment and history as stated above. All Systems: A 10-system review of systems was performed and is negative for pertinent findings except as documented above in the HPI. Physical Examination - Vital Signs Vital Signs: Initial Vital Signs Temp Pulse Resp BP Pulse Ox 98.6 F 58 18 180/96 96 12/17/16 15:00 12/17/16 15:00 12/17/16 15:00 12/17/16 15:00 12/17/16 15:00 Results - Laboratory Findings CBC and BMP: 12/18/16 03:11 12/18/16 03:11 Abnormal lab findings: Abnormal lab results MCH 27.9 pg (28.0-33.3) L 12/18/16 03:11 ABG pCO2 51 mmHg (35-45) H 12/18/16 03:33 ABG pO2 81 mmHg (85-104) L 12/18/16 03:33 ABG HCO3 32.3 mEQ/L (21-27) H 12/18/16 03:33 ABG Total CO2 33.9 mEq/L (20-26) H 12/18/16 03:33 ABG Base Excess 6.4 mEq/L (-2.0 to 3.0) H 12/18/16 03:33 Potassium 3.4 mEq/L (3.5-4.5) L 12/18/16 03:11 Glucose 119 mg/dL (70-99) H 12/18/16 03:11 POC Glucose 165 (58-89) H 12/18/16 11:44 HDL Cholesterol 30 mg/dL (40-59) L 12/18/16 03:11 Urine Clarity Cloudy (Clear) A 12/17/16 16:45 Urine Protein 30 mg/dL (Neg-Trace) H 12/17/16 16:45 Ur Squamous Epith Cells Moderate per lpf (None-Few) H 12/17/16 16:45
[2016-12-18] MEDS: Breo Ellipta 200-25 Mcg IH SCH (09:36)
[2016-12-18] MEDS: ZETIA 10MG PO SCH (09:36)
[2016-12-18] MEDS ORDERED: *HR* LORazepam 2 MG/ML VIAL IVP STA (10:25)
--- NOTE | 2016-12-18 19:06 | Internal Med Progress Note ---
Date of Encounter: 12/18/16 Time of Encounter: 19:00 - Assessment and plan (1) Slurred speech Current Visit: Yes Status: Resolved Assessment and plan: Patient is alert and or 23 with fluid speech and no focal neurological weaknesses. He is back to his baseline. Workup thus far has been unremarkable , echocardiogram still pending. He remains hypertensive, we will continue to attempt to control his blood pressure better. Possible discharge tomorrow pending clinical outcomes. (2) TIA (transient ischemic attack) Current Visit: Yes Status: Resolved (3) Confusion Current Visit: Yes Status: Resolved (4) Diastolic heart failure Current Visit: Yes Status: Suspected Assessment and plan: He had an echocardiogram in August that revealed a normal ejection fraction but mild diastolic dysfunction. Suspect acute on chronic diastolic heart failure. Current echocardiogram from this visit pending. He takes furosemide at home and has issues with continued pedal edema. He has family state that he has never been educated on fluid or sodium restricted diet, will educate him tomorrow prior to disposition. Awaiting repeat echocardiogram results. Qualifiers: Heart failure chronicity: acute on chronic Qualified Code(s): I50.33 - Acute on chronic diastolic (congestive) heart failure (5) Peripheral edema Current Visit: No Status: Chronic (6) Hypertension Current Visit: Yes Status: Chronic Assessment and plan: At home, patient is on furosemide 40 mg, metoprolol 50 mg in the morning and 100 mg at night and lisinopril 20 mg twice a day. These medications have been continued and he remains hypertensive. Heart rate in the 50s so I will not adjust his beta yeimi. He continues with pedal edema though he has never been educated on a fluid restricted diet. His renal functioning is normal so we could increase his furosemide, could also add amlodipine to his regimen. We will add amlodipine to his regimen and monitor. (7) DVT prophylaxis Current Visit: Yes Status: Acute Assessment and plan: Subcutaneous Lovenox - Subjective Interval history: Patient seen and examined. On examination, patient resting in bed currently having his echocardiogram. He denies pain or shortness of breath at this time. He is alert and oriented 3. Several family members are at the bedside and state that the patient is back to his baseline. - Constitutional Vitals: Temp Pulse Resp BP Pulse Ox 97.8 F 51 16 155/79 96 12/18/16 18:35 12/18/16 18:35 12/18/16 18:35 12/18/16 18:35 12/18/16 18:35 General appearance: Present: A&O X 3, pleasant, no acute distress, answers questions appropriately - Head Head exam: Present: atraumatic, normocephalic - Eye Eye exam: Present: PERRL, conjuntiva pink, sclera anicteric Pupils: Present: PERRL - Neck Neck exam general surgery: Present: supple, trachea midline. Absent: lymphadenopathy - Respiratory Respiratory exam: Present: decreased breath sounds. Absent: accessory muscle use, rales, respiratory distress, rhonchi, wheezes - Cardiovascular Cardiovascular exam: Present: RRR, +S1, +S2. Absent: diastolic murmur, gallop, rubs, systolic murmur - GI/Abdominal GI/Abdominal exam: Present: normal bowel sounds, soft, no peritoneal signs. Absent: distended, tenderness - Extremities Exam Extremities exam: Present: pedal edema, warm, radial pulses palpable and symetrical. Absent: calf tenderness, cyanotic - Neurological Exam Neurological exam: Present: alert, CN II-XII intact, oriented X3, no focal deficits. Absent: pronater drift, facial droop, speech deficit - Skin Skin exam: Present: dry, intact, pallor, warm Internal Medicine: Result - Labs CBC & Chem 7: 12/18/16 03:11 12/18/16 03:11 Labs: Short CBC 12/18/16 Range/Units 03:11 WBC 9.2 (4.3-11.1) K/mcL Hgb 13.7 D (12.9-16.9) g/dL Hct 41.5 (37.5-50.1) % Plt Count 241 (140-400) K/mcL Neutrophils # 6.0 (1.6-8.9) K/mcL BMP 12/18/16 03:11 Sodium 141 Potassium 3.4 L Chloride 103 Carbon Dioxide 28 BUN 17 Creatinine 1.10 Glucose 119 H Calcium 9.0 - ABG Interpretation ABG results: ABG ABG pH 7.41 pH Units (7.32-7.45) 12/18/16 03:33 ABG pCO2 51 mmHg (35-45) H 12/18/16 03:33 ABG pO2 81 mmHg (85-104) L 12/18/16 03:33 ABG O2 Saturation 96 % (95-98) 12/18/16 03:33 PT/INR, D-dimer PT 11.1 Seconds (9.4-12.1) 12/17/16 15:12 - Impressions Impressions Brain MRI 12/18/16 00:13 IMPRESSION: 1. No acute intracranial abnormality. No acute infarct. 2. Global parenchymal volume with chronic microvascular ischemic change. 3. 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 D/ / Jett Leyva MD / Jett Leyva MD Interpreting Provider: Jett Leyva MD Head MRA 12/18/16 00:13 IMPRESSION: 1. Suboptimal evaluation of the cervical internal carotid arteries, due to motion degradation. No occlusion of the internal carotid arteries. If clinical concern for internal carotid artery stenosis persists, consider carotid ultrasound. 2. No intracranial flow-limiting stenosis. D/ / 12/18/2016 12:43:46 Christie Penny MD / beverly Interpreting Provider: Christie Penny MD Neck MRA 12/18/16 00:13 IMPRESSION: 1. Suboptimal evaluation of the cervical internal carotid arteries, due to motion degradation. No occlusion of the internal carotid arteries. If clinical concern for internal carotid artery stenosis persists, consider carotid ultrasound. 2. No intracranial flow-limiting stenosis. D/ / 12/18/2016 12:43:46 Christie Penny MD / beverly Interpreting Provider: Christie Penny MD - VTE Documentation of Mechanical Device: Graduated compression elastic hosiery Consult Discharge Plan - Plan Referrals: Francis Chamberlain MD [Primary Care Provider] - 12/25/16 2:00 pm
[2016-12-18] MEDS: amLODIPine 5 MG TABLET PO SCH (21:04)
[2016-12-19] MEDS: *HR* Enoxaparin 40 MG/0.4 ML SYRINGE SQ SCH (06:15)
[2016-12-19] MEDS: Budesonide/Formoterol 160/4.5 MDI IH SCH (07:58)
[2016-12-19] MEDS: Tiotropium 18 MCG inhalation IH SCH (07:58)
[2016-12-19] MEDS: Aspirin Enteric Coated 81 MG Tablet PO SCH (09:10)
[2016-12-19] MEDS: BuPROPion XL (24 HR) 150 MG TABLET PO SCH (09:10)
[2016-12-19] MEDS: Furosemide 40 MG TABLET PO SCH (09:10)
[2016-12-19] MEDS: Finasteride 5 MG TABLET PO SCH (09:11)
[2016-12-19] MEDS: amLODIPine 5 MG TABLET PO SCH (09:11)
[2016-12-19] MEDS: Lisinopril 20 MG TABLET PO SCH (09:11)
[2016-12-19] MEDS: Breo Ellipta 200-25 Mcg IH SCH (09:12)
[2016-12-19] MEDS: ZETIA 10MG PO SCH (09:12)
--- NOTE | 2016-12-19 09:46 | ECHO - Doppler Report ---
Echo with Saline Contrast Name: Lj Moon Date of Study: 12/18/2016 Date: 1940 Ht: 67.0 in Medical Record#: [id number] Age: 76 Wt: 220.0 lb Gender: Male BSA: 2.11 Order #: [id number] Location: [facility] Room #: [id number] Reading Physician: Luis Armando Yoder MD, [facility] Cell Stripper Final: Flora Messer Ordering Physician: Sofia Garner CNP Primary Physician: Francis Chamberlain MD Indications: Confusion, slurred speech Impressions: Normal LV systolic function, LVEF 60%. Mild concentric left ventricular hypertrophy. Moderate left ventricular diastolic dysfunction. Normal right ventricular size and function. No significant valvular dysfunction. No evidence of pulmonary hypertension. No evidence of intracardiac shunting with agitated saline contrast. Left Ventricular Wall Motion: Rest Echo Findings All wall segments showed normal motion. Findings: Study Quality * Technically adequate exam. ECG Findings * Sinus bradycardia. Left Ventricle * Normal LV systolic function, LVEF 60%. * Mild concentric left ventricular hypertrophy. * Moderate left ventricular diastolic dysfunction. Right Ventricle * Normal right ventricular size and function. Left Atrium * Normal left atrial size. Right Atrium * Normal right atrial size. Interatrial Septum * No evidence of intracardiac shunting with agitated saline contrast. Aorta * Normally sized aortic root. Pericardium * There is no pericardial effusion present. IVC * The IVC is not well evaluated. Aortic Valve * Trileaflet aortic valve. * Mildly sclerotic aortic valve leaflets. * No aortic stenosis. * No aortic regurgitation. Mitral Valve * Normal mitral valve structure. * No mitral stenosis. * Trace mitral regurgitation. Tricuspid Valve * Normal tricuspid valve structure. * No tricuspid stenosis. * Trace tricuspid regurgitation. * No evidence of pulmonary hypertension. Pulmonic Valve * Pulmonic valve not well visualized. * No pulmonic stenosis. * Trace pulmonic regurgitation. History Hypertension Diabetes Hypercholesteremia Years 60 Packs 1 Family History of CAD History of CAD/PTCA Myocardial Infarction 09/07/2013 a Previous Echo was performed. Contrast: Agitated saline 20 ml. Measurements: BP: 161/ 84 2D Normal Values RVIDd: 3.30 cm IVSd: 1.30 cm 0.6 - 1.0 cm LVIDd: 4.10 cm 3.7 - 5.6 cm LVPWd: 1.20 cm 0.6 - 1.1 cm LVIDs: 2.50 cm 1.5 - 3.6 cm AO: 3.60 cm < 4.0 cm LA volume: 54 Mitral Valve Peak E:1.13 m/sec Peak A:.88 m/sec E/A Ratio:1.3 Peak E' Lat Shadi:6.92 cm/s Peak E' Med Shadi:5.46 cm/s E/E' Lat Ratio:16.3 E/E' Med Ratio:20.7 Tricuspid Valve TV Regurg Peak Grad: 21.00mmHg TV Regurg Peak Shadi: 2.28m/sec Updated by Luis [facility] Yoder [facility], [facility] on 12/19/2016 9:43:01 AM electronically signed on 12/19/2016 9:43:30 AM with status of Final Wall Motion Dumont: 1=Normal, 2=Hypokinesis, 3=Akinesis, 4=Dyskinesis, 5=Aneurysmal, 6=Hyperkinetic, X=Not Visualized (Blank)=Missing
[2016-12-19 11:23] VITALS: BP 154/88
--- NOTE | 2016-12-19 12:24 | Discharge Summary ---
Date of Encounter: 12/19/16 Time of Encounter: 12:00 - Discharge Diagnosis (1) Slurred speech Priority: Primary Status: Resolved (2) TIA (transient ischemic attack) Priority: Primary Status: Resolved (3) Confusion Priority: Primary Status: Resolved (4) Diastolic heart failure Priority: Secondary Status: Chronic Comments: Echocardiogram from this visit revealing ejection fraction of 60% with moderate diastolic dysfunction. He is on furosemide at home, chronic diastolic heart failure without acute exacerbation. He and his family were given a lot of teaching during this admission as the have never been educated on fluid and sodium restricted diets. Follow-up outpatient. (5) Peripheral edema Priority: Secondary Status: Chronic (6) Hypertension Priority: Secondary Status: Chronic Comments: At home, patient is on furosemide 40 mg, metoprolol 50 mg in the morning and 100 mg at night and lisinopril 20 mg twice a day. These medications were continued and he remained hypertensive. Heart rate in the 50s so his beta yeimi was not changed. Amlodipine was added to his regimen and his pressure was improved on day of discharge. Daily blood pressure checks at home and follow up outpatient (7) DVT prophylaxis Priority: Primary Status: Acute Comments: Subcutaneous Lovenox while admitted (8) Chronic respiratory failure Priority: Secondary Status: Chronic Comments: On 2 L per nasal cannula as needed at home. Tolerated room air during this admission, follow-up outpatient. He denied shortness of breath above his norm. - Discharge Medications Prescriptions: Amlodipine [Norvasc] 5 mg PO DAILY #30 tablet Home Medications: Aspirin [Adult Low Dose Aspirin EC] 81 mg PO DAILY 12/20/15 [History] Atorvastatin [Lipitor] 40 mg PO HS 12/20/15 [History] Clopidogrel Bisulfate [Plavix] 75 mg PO DAILY 12/20/15 [History] Ezetimibe [Zetia] 10 mg PO DAILY 12/20/15 [History] Lisinopril [Zestril] 20 mg PO BID 12/20/15 [History] Metoprolol [Lopressor] 100 mg PO QPM 12/20/15 [History] Omeprazole 20 mg PO DAILY 02/23/16 [History] Tamsulosin [Flomax] 0.4 mg PO DAILY 02/23/16 [History] Albuterol Sulfate [Ventolin Hfa] 2 puff IH Q4H PRN 12/17/16 [History] Brimonidine Tartrate 1 drop RIGHT EYE BID 12/17/16 [History] BuPROPion XL (24 HR) [Wellbutrin Xl] 150 mg PO DAILY 12/17/16 [History] Budesonide/Formoterol 160/4.5 [Symbicort 160/4.5] 2 puff IH BIDR 12/17/16 [ History] Finasteride [Proscar] 5 mg PO DAILY 12/17/16 [History] Fluticasone/Vilanterol [Breo Ellipta 200-25 Mcg INH] 1 puff IH DAILY 12/17/16 [ History] Furosemide [Lasix] 40 mg PO DAILY 12/17/16 [History] Metoprolol [Lopressor] 50 mg PO QAM 12/17/16 [History] Oxygen 2 l NS AD 12/17/16 [History] Tiotropium [Spiriva] 18 mcg IH DAILY 12/17/16 [History] Amlodipine [Norvasc] 5 mg PO DAILY #30 tablet 12/19/16 [Rx] Allergies/Adverse Reactions: Allergies No Known Allergies Allergy (Verified 09/09/16 10:54) Procedures/tests Complete & Pending: Procedures Performed prior 72 hours Category Date Time Status MR angio head wo con [MR] Routine MRI 12/18/16 00:13 Draft MR angio neck wo/w con [MR] Routine MRI 12/18/16 00:13 Draft MR head/brain wo con [MR] Routine MRI 12/18/16 00:13 Completed EV echocardiogram Routine Y 12/18/16 00:13 Completed Date of admission: 12/17/16 18:55 Primary care physician: Francis Chamberlain MD Consults: 12/17/16 21:19 Consult to Speech Therapy [CONS] Routine Comment: Evaluate, develop and implement POC Reason for Consult: Patient with slurred speech, reports he coughed while eating jello today, here for TIA symptoms Call Completed: No 12/18/16 00:15 Consult to Neurology [CONS] Routine Consulting Provider: [facility] Reason for Consult: Patient with slurred speech for several days, episode of acute confusion and disorientation. Call Completed: No Consult to Occupational Therapy [CONS] Routine Comment: Evaluate, develop and implement POC Consult to Physical Therapy [CONS] Routine Comment: Evaluate, develop and implement POC Discharging clinician: Zaria Rangel Anticipated date of discharge: 12/19/16 - Patient Status Disposition: Home, Self-Care Condition: Good Functional capacity at discharge: independent ambulation Overall status at discharge: patient is back to baseline - Discharge Instructions Follow Up With: Francis Chamberlain MD [Primary Care Provider] - 12/25/16 2:00 pm Additional Instructions: Follow-up with primary care provider as scheduled, check blood pressure daily, fluid and sodium restricted diet - Diet and Activity Activity: increase activity as tolerated Diet: low fat, low cholesterol, low salt diet, other (fluid restriction- 1-2L max per day) Hospital course: Mr. Moon is a 76 year old male with past medical history of diastolic heart failure, COPD on 2 L per nasal cannula as needed at home, CAD status post stent , prior CVA, hypertension, hyperlipidemia, former tobacco abuse. Patient presented to the emergency department when his noticed he was confused and disoriented and had slurred speech. His states that this was sudden onset and he could not recognize where he was, did not recognize his , could not find his parked car and he tried to open his car with no clippers instead of car keys. Patient's also stating that his speech was slurred for several days but patient denies this. Patient denied headache, chest pain, palpitations , shortness of breath. Patient did endorse lightheadedness at times. Patient was alert and oriented 3 upon admission. Chest x-ray negative. Head CT negative. Patient was admitted to the hospitalist service for further evaluation and management. Brain MRI negative for acute processes. Head and neck MRI unremarkable. Echocardiogram unremarkable with preserved ejection fraction and moderate diastolic dysfunction. He is on furosemide at home. He was euvolemic on examination during this admission. Of note, family reported frustration over the patient's continued pedal edema however they state they have never been educated on a fluid and sodium restricted diet so a lot of education was given to the patient and his family during this admission given that he has diastolic heart failure, is on a diuretic, and needs to be on a fluid and sodium restricted diet. He remained alert and oriented 3 with no focal neurological deficits noted during this admission. He was seen and evaluated by occupational and physical therapy both of whom surmised she had no needs. He was seen and evaluated by neurology who agrees with this current medical management. Likely cause of the patient's episode was uncontrolled hypertension versus a TIA. Amlodipine was added to the patient's regimen and his blood pressure was improved at time of discharge. He was instructed to check his blood pressure daily, keep a log, and follow-up outpatient. He was discharged home in stable condition with close outpatient follow-up recommended. ITS Impressions Chest X-Ray 12/17/16 15:09 IMPRESSION: No acute cardiopulmonary disease. D/ / 12/17/2016 15:50:41 Ciro Mckay MD / [email or web address] Interpreting Provider: Ciro Mckay MD Head CT 12/17/16 15:09 IMPRESSION: 1. No acute intracranial abnormality. 2. 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 D/ / Christiano Clements MD / Christiano Clements MD Interpreting Provider: Christiano Clements MD Brain MRI 12/18/16 00:13 IMPRESSION: 1. No acute intracranial abnormality. No acute infarct. 2. Global parenchymal volume with chronic microvascular ischemic change. 3. 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 D/ / Jett Leyva MD / Jett Leyva MD Interpreting Provider: Jett Leyva MD Head MRA 12/18/16 00:13 IMPRESSION: 1. Suboptimal evaluation of the cervical internal carotid arteries, due to motion degradation. No occlusion of the internal carotid arteries. If clinical concern for internal carotid artery stenosis persists, consider carotid ultrasound. 2. No intracranial flow-limiting stenosis. D/ / 12/18/2016 12:43:46 Christie Penny MD / [email or web address] Interpreting Provider: Christie Penny MD Neck MRA 12/18/16 00:13 IMPRESSION: 1. Suboptimal evaluation of the cervical internal carotid arteries, due to motion degradation. No occlusion of the internal carotid arteries. If clinical concern for internal carotid artery stenosis persists, consider carotid ultrasound. 2. No intracranial flow-limiting stenosis. D/ / 12/18/2016 12:43:46 Christie Penny MD / [email or web address] Interpreting Provider: Christie Penny MD Echo with saline contrast impressions: Normal LV systolic function, LVEF 60%. Mild concentric left ventricular hypertrophy. Moderate left ventricle diastolic dysfunction. Normal right ventricular structure and function. No significant valvular dysfunction. No evidence of pulmonary hypertension. No evidence of intracardiac shunting with agitated saline contrast. - Time Spent with Patient Total time spent providing and/or coordinating discharge services: - Constitutional Vitals: Temp Pulse Resp BP Pulse Ox 97.4 F L 51 15 154/88 97 12/19/16 11:22 12/19/16 11:22 12/19/16 11:22 12/19/16 11:22 12/19/16 11:22 General appearance: Present: A&O X 3, pleasant, no acute distress, answers questions appropriately - Head Head exam: Present: atraumatic, normocephalic - Eye Eye exam: Present: PERRL, conjuntiva pink, sclera anicteric Pupils: Present: PERRL - Neck Neck exam general surgery: Present: supple, trachea midline. Absent: lymphadenopathy - Respiratory Respiratory exam: Present: decreased breath sounds. Absent: accessory muscle use, rales, respiratory distress, rhonchi, wheezes - Cardiovascular Cardiovascular exam: Present: RRR, +S1, +S2. Absent: diastolic murmur, gallop, rubs, systolic murmur - GI/Abdominal GI/Abdominal exam: Present: normal bowel sounds, soft, no peritoneal signs. Absent: distended, tenderness - Extremities Exam Extremities exam: Present: pedal edema (nonpitting, trace), warm, radial pulses palpable and symetrical. Absent: calf tenderness, cyanotic - Neurological Exam Neurological exam: Present: alert, CN II-XII intact, normal gait, oriented X3, no focal deficits, strengths equal and symetr throughout. Absent: pronater drift, facial droop, speech deficit - Skin Skin exam: Present: dry, intact, normal color, warm - VTE Documentation of Mechanical Device: Graduated compression elastic hosiery
== END 2016-12-19 13:50 | disposition home or self-care (01) ==
LOC: UNDODISOB → 3BNU 14:57 → EMEROO 14:57 → 3BNU 19:45
PROVIDERS: ADMIT Nurse Practitioner Family; ATTEND Nurse Practitioner Family

== ENCOUNTER 2016-12-31 15:06 | Observation (INO) ==
--- NOTE | 2016-12-31 15:47 | Emergency Department Note ---
Disposition Clinical Impression: Atrial flutter with rapid ventricular response, Palpitations Atrial flutter Qualifiers: Atrial flutter type: unspecified Qualified Code(s): I48.92 - Unspecified atrial flutter Disposition: Admitted As Inpatient Condition: Fair Arrhythmia/Palpitations HPI - General Chief Complaint: ED Arrhythmia/Palpitations Stated Complaint: High BP and HR, dizziness Time Seen by Provider: 12/31/16 15:16 Source: patient, family Limitations: no limitations - History of Present Illness HPI Narrative: Patient does have history of heart disease and TIA about 10 days ago and was admitted for that and presents today with complaints of a rapid heart rate and high blood pressure. He did have some lightheadedness earlier today which is resolved now. The rapid heart rate began at home. No medications specifically use. He is unaware of history of atrial fibrillation. He denies any chest pain or tightness or discomfort pressure. No fevers or blurred vision. No rhinorrhea but does have a minimal cough. No sneezing. No blood in the urine or stool. He does have baseline swelling lower extremities but no pain or numbness of the extremities. No skin rash or bruising of the skin. Social history: Stopped smoking in July. She went to daughters and son-in-law. - Related Data Home Medications Medication Instructions Recorded Confirmed Aspirin [Adult Low Dose Aspirin EC] 81 mg PO DAILY 12/20/15 12/31/16 Atorvastatin [Lipitor] 40 mg PO HS 12/20/15 12/31/16 Clopidogrel Bisulfate [Plavix] 75 mg PO DAILY 12/20/15 12/31/16 Ezetimibe [Zetia] 10 mg PO DAILY 12/20/15 12/31/16 Lisinopril [Zestril] 20 mg PO BID 12/20/15 12/31/16 Metoprolol [Lopressor] 100 mg PO QPM 12/20/15 12/31/16 Omeprazole 20 mg PO DAILY 02/23/16 12/31/16 Tamsulosin [Flomax] 0.4 mg PO DAILY 02/23/16 12/31/16 Albuterol Sulfate [Ventolin Hfa] 2 puff IH Q4H PRN 12/17/16 12/31/16 Brimonidine Tartrate 1 drop RIGHT EYE BID 12/17/16 12/31/16 BuPROPion XL (24 HR) [Wellbutrin 150 mg PO DAILY 12/17/16 12/31/16 Xl] Finasteride [Proscar] 5 mg PO DAILY 12/17/16 12/31/16 Fluticasone/Vilanterol [Breo 1 puff IH DAILY 12/17/16 12/31/16 Ellipta 200-25 Mcg INH] Furosemide [Lasix] 40 mg PO DAILY 12/17/16 12/31/16 Metoprolol [Lopressor] 50 mg PO QAM 12/17/16 12/31/16 Oxygen 2 l NS AD 12/17/16 12/31/16 Tiotropium [Spiriva] 18 mcg IH DAILY 12/17/16 12/31/16 Previous Rx's Medication Instructions Recorded Amlodipine [Norvasc] 5 mg PO DAILY #30 tablet 12/19/16 Allergies Allergy/AdvReac Type Severity Reaction Status Date / Time No Known Allergies Allergy Verified 09/09/16 10:54 Past Medical History - Past Medical History Medical history: Reports: asthma, CHF, CVA, GERD, hyperlipidemia, hypertension, myocardial infarction Surgical history: Reports: angioplasty/stent, LE stent(s) Psychiatric history: Reports: no psych history - Social History Smoking Status: Former smoker Smokeless Tobacco Status: No Alcohol use: Reports: none Drug use: Reports: none Physical Exam CONSTITUTIONAL: Well-appearing; well-nourished; A&O X 3, in no apparent distress HEAD: Normocephalic; atraumatic EYES: PERRL, no scleral icterus NOSE: The nose is normal in appearance without rhinorrhea NECK: No JVD or distended neck veins RESP: Normal chest excursion with respiration; breath sounds clear and equal bilaterally; no wheezes, rhonchi, or rales CARD: Regular rhythm and tachycardic , without murmurs, rub or gallop ABD: Non-distended; non-tender, soft, without rigidity, rebound or guarding,no pulsatile mass CHEST: No pain with palpation SKIN: Normal for age and race; warm and dry without diaphoresis ; no apparent lesions EXTREMITIES: Pulses are 2 plus and equal times 4 extremities, no peripheral edema or calf muscle pain - General Limitations: no limitations General appearance: alert, in no apparent distress Course Vital Signs Temperature 98.2 F 12/31/16 15:18 Pulse Rate 159 12/31/16 15:18 Respiratory Rate 18 12/31/16 15:18 Blood Pressure 155/118 12/31/16 15:18 O2 Sat by Pulse Oximetry 97 12/31/16 15:18 Temperature 97.9 F 12/31/16 18:50 Pulse Rate 137 12/31/16 18:50 Respiratory Rate 24 12/31/16 18:50 Blood Pressure 104/83 12/31/16 18:50 O2 Sat by Pulse Oximetry 94 12/31/16 18:50 Oxygen Delivery Oxygen Delivery Nasal Cannula Arrhythmia/Palpitations - MDM Narrative Medical decision making narrative: I did review the EKG which is most consistent with atrial flutter with a rate of 159 bpm. The patient will receive Cardizem 15 mg then Cardizem 10 mg per hour and this has been ordered. He was watched on the ekg monitor tech. The patient will be admitted. Labs are pending. Otherwise he is sitting comfortably on the side of the bed, conversational, in no distress. 1545 I did review the patient's previous record. He was admitted in November and did have a echocardiogram showing 60% ejection fraction, negative brain imaging. Patient left the ekg monitor tech. Medications have been reviewed. 1610 Discussed with the patient he is no longer DNR and the patient's heart rate has improved and is currently 127 and does have the appearance of atrial fibrillation and the patient is getting IV fluids and we will see if this improves the heart rate even more that he may need some additional Cardizem. The patient will be admitted as this does appear to be new onset. 1719 I did speak with the hospitalist Pascual who accepted the patient for admission. I also spoke with Dr. Mckeon, the cloth folder machine who agrees with the second dose of Cardizem 10 mg and to increase the drip rate to 15 mg per hour and he also recommends anticoagulation with Lovenox which we will do. I did see the patient again and had a long conversation with him and the family. He is in no distress and nontoxic in appearance critical care time: 30 minutes 1757 - Medical Records Medical records reviewed: Yes I reviewed the patient's medical records. - Lab Data Lab results reviewed: Yes I reviewed the patient's lab results. Result diagrams: 12/31/16 16:27 12/31/16 16:27 Lab Results 12/31/16 12/31/16 12/31/16 Range/Units 16:27 16:27 16:27 WBC 11.1 (4.3-11.1) K/mcL RBC 5.42 (4.19-5.50) M/mcL Hgb 15.5 (12.9-16.9) g/dL Hct 45.8 (37.5-50.1) % MCV 84.5 (83.0-100.0) fL MCH 28.6 (28.0-33.3) pg MCHC 33.8 (31.6-35.5) g/dL RDW 14.2 (11.5-14.5) % Plt Count 272 (140-400) K/mcL MPV 10.6 (9.4-12.4) fL Sodium 141 (136-145) mEq/L Potassium 3.6 (3.5-4.5) mEq/L Chloride 105 (98-109) mEq/L Carbon Dioxide 27 (19-29) mEq/L BUN 18 (8-26) mg/dL Creatinine 1.16 (0.72-1.25) mg/dL Est GFR ( Amer) > 60 (> 60) Est GFR (Non-Af Amer) > 60 (> 60) BUN/Creatinine Ratio 16 (6-26) Glucose 97 (70-99) mg/dL Calculated Osmolality 294 (280-300) Calcium 8.6 (8.6-10.8) mg/dL Troponin I 0.03 (0-0.03) ng/mL - EKG Data EKG attestation: Yes I reviewed and interpreted this EKG.
[2016-12-31] MEDS ORDERED: 0.9 % Sodium Chloride 500 ML IVC ONE (17:02)
[2016-12-31 17:10] LABS: Hematocrit 45.8 % (37.5-50.1); Hemoglobin 15.5 g/dL (12.9-16.9); Mean Corpuscular HGB Conc 33.8 g/dL (31.6-35.5); Mean Corpuscular Hemoglobin 28.6 pg (28.0-33.3); Mean Corpuscular Volume 84.5 fL (83.0-100.0); Mean Platelet Volume 10.6 fL (9.4-12.4); Platelet Count 272 K/mcL (140-400); Red Blood Count 5.42 M/mcL (4.19-5.50); Red Cell Distribution Width 14.2 % (11.5-14.5)
[2016-12-31 17:24] LABS: BUN/Creatinine Ratio 16 (6-26); Blood Urea Nitrogen 18 mg/dL (8-26); Calcium 8.6 mg/dL (8.6-10.8); Carbon Dioxide 27 mEq/L (19-29); Chloride 105 mEq/L (98-109); Glucose 97 mg/dL (70-99); Osmolality,Calculated 294 (280-300); Potassium 3.6 mEq/L (3.5-4.5); Sodium 141 mEq/L (136-145); eGFR For African Americans > 60 (> 60); eGFR For Non-African Americans > 60 (> 60)
[2016-12-31] MEDS ORDERED: Naloxone 0.4 MG/ML INJ IVP PRN (19:44)
[2016-12-31] MEDS ORDERED: *HR* Digoxin 0.5 MG/2 ML AMPUL IVP STA (20:12)
[2016-12-31] MEDS ORDERED: *HR* Digoxin 0.5 MG/2 ML AMPUL IVP ONE (20:30)
--- NOTE | 2016-12-31 20:42 | Internal Med History&Physical ---
Date of Encounter: 12/31/16 Time of Encounter: 20:33 Assessment and Plan (1) Atrial flutter with rapid ventricular response Current visit: Yes Status: Acute Patient reported lightheadedness and shortness of breath. Noted his HR and blood pressure were elevated. In ED, found to be in Aflutter/afib with RVR and HR in 150s. He was given cardizem 15mg IVP, and started on a cardizem drip. His heart rate did not come down and cardiology was consulted. He was given another 10mg of cardizem IVP and the drip was increased to 15mg/hr. On exam, his heart rate was still in the 140s, blood pressure running low; 90-100/70-80. Discussed with Dr. Riley and Dr. Mckeon the bill distributor and 0.5mg of digoxin IVP ordered. Will be followed with 0.25mg of digoxin in 3-6hrs depending on patient's response. If HR does not respond to digoxin, he will need to be put on an amiodarone drip. Continuous rn cardiac rehab weight based lovenox SQ BID Cardiology consult (2) Diastolic heart failure Current visit: No Status: Chronic Last echocardiogram 12/18/16 showed LVEF of 60%, mild Left ventricular hypertrophy, Moderate left ventricular diastolic dysfunction. Today's CXR showed no acute process. Patient has +1 BLE edema. Continue home dose of lasix. Qualifiers: Heart failure chronicity: chronic Qualified Code(s): I50.32 - Chronic diastolic (congestive) heart failure (3) COPD (chronic obstructive pulmonary disease) Current visit: Yes Status: Acute Continue home doses of Spiriva and his breo Ellipta. Hold albuterol for now due to rapid heart rate. Titrate Oxygen to maintain O2 saturation > 92%. Qualifiers: COPD type: unspecified COPD Qualified Code(s): J44.9 - Chronic obstructive pulmonary disease, unspecified (4) DVT prophylaxis Current visit: No Status: Acute Up to chair BID anti-embolic stockings weight based lovenox ordered for patient's afib with RVR Internal Medicine - H&P: HPI Chief complaint: rapid heart rate Admitted From: Emergency Dept Plans for Post Hospital Care: Home History of present illness: Mr. Moon is a 76 year old male with HTN, HLD, COPD, CHF, CAD, history of CVA presented to the ED today with complaints of rapid heart rate and high blood pressure. He reports he was feeling lightheaded and dizzy earlier today and checked his blood pressure and pulse at home and both were high. He denies any chest pain, or palpitation sensation. He reports some shortness of breath. He denies headache, nausea, vomiting, abdominal pain. Evaluation in the ED revealed patient was in aflutter/afib with RVR HR in the 150s. Labs were normal. He was given cardizem 15mg IVP, and started on a cardizem drip. His heart rate did not come down and cardiology was consulted. He was given another 10mg of cardizem IVP and the drip was increased to 15mg/hr. On exam, his heart rate was still in the 140s, blood pressure running low; 90-100/70-80. Discussed with Dr. Riley and Dr. Mckeon the bill distributor and 0.5mg of digoxin IVP ordered. Will be followed with 0.25mg of digoxin in 3-6hrs depending on patient's response. If HR does not respond to digoxin, he will need to be put on an amiodarone drip. Patient resting comfortably, alert and oriented on exam. Lungs are clear to auscultation bilaterally. Heart has rapid , irregular rhythm. Past Med Surg Social Fam HX - Past Medical History Medical history: asthma, CHF, CVA, GERD, hyperlipidemia, hypertension, myocardial infarction Psychiatric history: no psych history - Past Surgical History Surgical History: angioplasty/stent, LE stent(s) - Social History Smoking Status: Former smoker Smokeless Tobacco Status: No Alcohol use: none Drug use: none - Family History Sister Hx Family Neurologic Disorders: Yes (CVA) Father Hx Family Cancer: Yes (stomach) Internal Medicine - H&P: Meds Aspirin [Adult Low Dose Aspirin EC] 81 mg PO DAILY 12/20/15 [History] Atorvastatin [Lipitor] 40 mg PO HS 12/20/15 [History] Clopidogrel Bisulfate [Plavix] 75 mg PO DAILY 12/20/15 [History] Ezetimibe [Zetia] 10 mg PO DAILY 12/20/15 [History] Lisinopril [Zestril] 20 mg PO BID 12/20/15 [History] Metoprolol [Lopressor] 100 mg PO QPM 12/20/15 [History] Omeprazole 20 mg PO DAILY 02/23/16 [History] Tamsulosin [Flomax] 0.4 mg PO DAILY 02/23/16 [History] Albuterol Sulfate [Ventolin Hfa] 2 puff IH Q4H PRN 12/17/16 [History] Brimonidine Tartrate 1 drop RIGHT EYE BID 12/17/16 [History] BuPROPion XL (24 HR) [Wellbutrin Xl] 150 mg PO DAILY 12/17/16 [History] Finasteride [Proscar] 5 mg PO DAILY 12/17/16 [History] Fluticasone/Vilanterol [Breo Ellipta 200-25 Mcg INH] 1 puff IH DAILY 12/17/16 [ History] Furosemide [Lasix] 40 mg PO DAILY 12/17/16 [History] Metoprolol [Lopressor] 50 mg PO QAM 12/17/16 [History] Oxygen 2 l NS AD 12/17/16 [History] Tiotropium [Spiriva] 18 mcg IH DAILY 12/17/16 [History] Amlodipine [Norvasc] 5 mg PO DAILY #30 tablet 12/19/16 [Rx] Allergies No Known Allergies Allergy (Verified 09/09/16 10:54) All Systems PM: A 10-system review of systems was performed and is negative for pertinent findings except as documented above in the HPI. - Constitutional Constitutional: no chills, no fever(s), no night sweats - EENT Eyes: no change in vision, no discharge, no pain, no photophobia Ears: no ear discharge, no ear pain, no tinnitus Nose, mouth and throat: no dysphagia, no nasal discharge, no neck pain, no sore throat - Cardiovascular Cardiovascular ROS IM: dyspnea, dyspnea on exertion, lightheadedness, no chest pain, no diaphoresis, no palpitations, no syncope - Respiratory Respiratory: dyspnea, dyspnea on exertion, no cough, no wheezing, no excessive phlegm production - Gastrointestinal Gastrointestinal: no abdominal pain, no diarrhea, no hematemesis, no hematochezia, no melena, no nausea, no vomiting - Musculoskeletal Musculoskeletal ROS IM: no numbness, no tingling - Integumentary Integumentary IM: no rash, no unusual bruising - Neurological Neurological ROS: no confusion, no convulsions, no focal weakness, no numbness, no tingling, no tremor(s) - Hematologic/Lymphatic Hematologic/Lymphatic: no easy bruising - Constitutional Vitals: Temp Pulse Resp BP Pulse Ox 97.9 F 137 24 104/83 94 12/31/16 18:50 12/31/16 18:50 12/31/16 18:50 12/31/16 18:50 12/31/16 18:50 General appearance: Present: A&O X 3, pleasant, no acute distress - Head Head exam: Present: atraumatic, normocephalic - Eye Eye exam: Present: PERRL, conjuntiva pink, sclera anicteric Pupils: Present: PERRL - Neck Neck exam general surgery: Present: supple, trachea midline. Absent: lymphadenopathy - Respiratory Respiratory exam: Present: CTAB. Absent: accessory muscle use, rales, rhonchi, wheezes - Cardiovascular Cardiovascular exam: Present: irregular rhythm, +S1, +S2, tachycardia. Absent: diastolic murmur, gallop, rubs, systolic murmur - GI/Abdominal GI/Abdominal exam: Present: normal bowel sounds, soft, no peritoneal signs. Absent: distended, tenderness - Extremities Exam Extremities exam: Present: pedal edema, warm, radial pulses palpable and symetrical. Absent: calf tenderness, cyanotic - Neurological Exam Neurological exam: Present: CN II-XII intact, oriented X3, no focal deficits. Absent: facial droop, speech deficit - Skin Skin exam: Present: dry, intact Internal Med - H&P Results - Labs CBC & Chem 7: 12/31/16 16:27 12/31/16 16:27 Labs: All Lab Results (24 Hours) 12/31/16 12/31/16 12/31/16 Range/Units 16:27 16:27 16:27 WBC 11.1 (4.3-11.1) K/mcL RBC 5.42 (4.19-5.50) M/mcL Hgb 15.5 (12.9-16.9) g/dL Hct 45.8 (37.5-50.1) % MCV 84.5 (83.0-100.0) fL MCH 28.6 (28.0-33.3) pg MCHC 33.8 (31.6-35.5) g/dL RDW 14.2 (11.5-14.5) % Plt Count 272 (140-400) K/mcL MPV 10.6 (9.4-12.4) fL Sodium 141 (136-145) mEq/L Potassium 3.6 (3.5-4.5) mEq/L Chloride 105 (98-109) mEq/L Carbon Dioxide 27 (19-29) mEq/L BUN 18 (8-26) mg/dL Creatinine 1.16 (0.72-1.25) mg/dL Est GFR ( Amer) > 60 (> 60) Est GFR (Non-Af Amer) > 60 (> 60) BUN/Creatinine Ratio 16 (6-26) Glucose 97 (70-99) mg/dL Calculated Osmolality 294 (280-300) Calcium 8.6 (8.6-10.8) mg/dL Troponin I 0.03 (0-0.03) ng/mL - Diagnostic Studies Chest x-ray Additional comments: Chest X-Ray 12/31/16 15:47 IMPRESSION: No acute process. D/ / 12/31/2016 16:12:19 Stanley Cha MD / carina Interpreting Provider: Stanley Cha MD
[2016-12-31] MEDS ORDERED: Lisinopril 20 MG TABLET PO SCH (21:00)
[2016-12-31] MEDS ORDERED: *HR* Metoprolol 5 MG/5 ML VIAL IVP ONE (21:51)
[2016-12-31] MEDS ORDERED: *HR* Digoxin 0.5 MG/2 ML AMPUL IVP SCH (23:00)
[2017-01-01] MEDS ORDERED: Levalbuterol Neb 1.25 MG/3 ML IH PRN (00:45)
[2017-01-01] MEDS ORDERED: *HR* Digoxin 0.5 MG/2 ML AMPUL IVP SCH (02:00)
[2017-01-01] MEDS ORDERED: *HR* Digoxin 0.5 MG/2 ML AMPUL IVP ONE (03:30)
[2017-01-01 05:06] LABS: Basophils % 0.4 %; Eosinophils # 0.3 K/mcL (0.0-0.6); Eosinophils % 2.5 %; Hematocrit 46.1 % (37.5-50.1); Hemoglobin 15.5 g/dL (12.9-16.9); Immature Granulocytes % 0.3 % (0-4); Lymphocytes # 2.4 K/mcL (0.6-4.6); Lymphocytes % 21.5 %; Mean Corpuscular HGB Conc 33.6 g/dL (31.6-35.5); Mean Corpuscular Hemoglobin 28.7 pg (28.0-33.3); Mean Corpuscular Volume 85.2 fL (83.0-100.0); Mean Platelet Volume 10.4 fL (9.4-12.4); Monocytes % 9.5 %; Neutrophils # 7.3 K/mcL (1.6-8.9); Platelet Count 274 K/mcL (140-400); Red Blood Count 5.41 M/mcL (4.19-5.50); Red Cell Distribution Width 14.1 % (11.5-14.5); Segmented Neutrophils % 65.8 %
[2017-01-01 05:21] LABS: BUN/Creatinine Ratio 15 (6-26); Blood Urea Nitrogen 17 mg/dL (8-26); Calcium 9.2 mg/dL (8.6-10.8); Carbon Dioxide 22 mEq/L (19-29); Chloride 106 mEq/L (98-109); Glucose 133 mg/dL (70-99); Osmolality,Calculated 297 (280-300); Potassium 3.8 mEq/L (3.5-4.5); Sodium 142 mEq/L (136-145); eGFR For African Americans > 60 (> 60); eGFR For Non-African Americans > 60 (> 60)
[2017-01-01] MEDS ORDERED: *HR* Enoxaparin 120 MG/0.8 ML SYRINGE SQ SCH (06:00)
[2017-01-01] MEDS: Aspirin Enteric Coated 81 MG Tablet PO SCH (08:59)
[2017-01-01] MEDS: BREO ELLIPTA IH SCH (08:59)
[2017-01-01] MEDS: Finasteride 5 MG TABLET PO SCH (08:59)
[2017-01-01] MEDS ORDERED: amLODIPine 5 MG TABLET PO SCH (09:00)
[2017-01-01] MEDS: BuPROPion XL (24 HR) 150 MG TABLET PO SCH (09:00)
[2017-01-01] MEDS ORDERED: Tiotropium 18 MCG inhalation IH SCH (09:00)
--- NOTE | 2017-01-01 09:20 | Cardiology Consult Note ---
Date of Encounter: 01/01/17 Time of Encounter: 09:20 Assessment and Plan (1) Atrial flutter with rapid ventricular response Current Visit: Yes Status: Acute New diagnosis. A-flutter with RVR, rate 150s on admission. Remains in A-Flutter , 24 hour tele AVG HR 114. HR low 100s-1teens at bedside. Currently on cardizem gtt at 15mg/hr, was loaded with IV Digoxin overnight and is on Lopressor 50mg QAM, 100mg QPM. BP has been marginal. Cardizem gtt was decreased to 10mg/hr at bedside, receiving Lopressor 50mg now. Will decrease Lisinopril to allow BP room for HR control. Continue to monitor. K 3.8, Mag 2.2, TSH 2.299. CHADSVASC score of 5 (CHF, HTN, Age, TIA/CVA). [facility] anticoagulation recommended. Recent TIA 2 weeks ago. Pt currently on ASA and Plavix. Stop Plavix since no recent PCI. Discussed NOACs vs. Coumadin. Will soto check NOAC. Currently on therapeutic Lovenox. Echo 12/18/16 EF 60%, moderate diastolic dysfunction, no significant valvular dysfunction. Negative stress test 11/2015. (2) CAD (coronary artery disease) Current Visit: Yes Status: Chronic Hx of PCI in remote past at [facility]. Pt denies chest pain or worsening dyspnea from baseline. ASA, Statin, BB. Negative stress test 11/2015. Qualifiers: Coronary Disease-Associated Artery/Lesion type: [place] artery [place] vs. transplanted heart: [place] heart Associated angina: without angina Qualified Code(s): I25.10 - Atherosclerotic heart disease of [place] coronary artery without angina pectoris (3) Diastolic heart failure Current Visit: No Status: Chronic Last echocardiogram 12/18/16 showed LVEF of 60%, Moderate diastolic dysfunction. No acute findings on CXR. Pt appears euvolemic on exam. Qualifiers: Heart failure chronicity: chronic Qualified Code(s): I50.32 - Chronic diastolic (congestive) heart failure (4) Hypertension Current Visit: Yes Status: Chronic Currently marginal BP. Will decrease Lisinopril/wean off to allow room for AV wilian yeimi uptitration for HR control. Stop Norvasc since he is on Lisinopril. Qualifiers: Hypertension type: essential hypertension Qualified Code(s): I10 - Essential (primary) hypertension Discussion w patient/family: The assessment and plan as outlined above was discussed with the patient and/or family members who expressed understanding and agreement. All questions were answered. Thank you for involving us in the care of your patient. Please call with any questions. I will discuss all the above with Dr. Avila and make changes as necessary. History of Present Illness Consult date: 01/01/17 Requesting physician: Arcadio Riley Consult reason: A-Flutter RVR Chief complaint: dizziness, lightheadedness History of present illness: Mr. Moon is a 76 year old male with PMH of HTN, HLD, COPD, diastolic CHF, CAD s/p PCI in remote past, hx of recent TIA/CVA, COPD on PRN home O2 that presented to the ED yesterday with complaints of rapid heart rate and high blood pressure. He reports he was feeling lightheaded and dizzy, checked his blood pressure and pulse at home and both were high. He denies any chest pain or palpitations. He reports some shortness of breath, but no significant worsening from baseline. Reports lower extremity edema since July. He denies headache, nausea, vomiting, abdominal pain. Evaluation in the ED revealed patient was in aflutter with RVR HR in the 150s. Pt was started on Cardizem gtt, loaded with Digoxin, is on PO Lopressor and therapeutic Lovenox. 24 hour tele AVG HR 114, A-Flutter. Recent CV testing: Echo 12/18/16: EF 60%, mild concentric LVH, moderate diastolic dysfunction, no significant valvular dysfunction. Stress test 12/24/15: Perfusion imaging negative for ischemia or infarct. Gated EF 66%. Past Med Surg Social Fam HX - Past Medical History Medical history: asthma, CHF, coronary artery disease, CVA, GERD, hyperlipidemia , hypertension, myocardial infarction, TIA Psychiatric history: no psych history - Past Surgical History Surgical History: angioplasty/stent, LE stent(s) - Social History Smoking Status: Former smoker Smokeless Tobacco Status: No Alcohol use: none Drug use: none - Family History Sister Hx Family Neurologic Disorders: Yes (CVA) Father Hx Family Cancer: Yes (stomach) Medications and Allergies Aspirin [Adult Low Dose Aspirin EC] 81 mg PO DAILY 12/20/15 [History] Atorvastatin [Lipitor] 40 mg PO HS 12/20/15 [History] Clopidogrel Bisulfate [Plavix] 75 mg PO DAILY 12/20/15 [History] Ezetimibe [Zetia] 10 mg PO DAILY 12/20/15 [History] Lisinopril [Zestril] 20 mg PO BID 12/20/15 [History] Metoprolol [Lopressor] 100 mg PO QPM 12/20/15 [History] Omeprazole 20 mg PO DAILY 02/23/16 [History] Tamsulosin [Flomax] 0.4 mg PO DAILY 02/23/16 [History] Albuterol Sulfate [Ventolin Hfa] 2 puff IH Q4H PRN 12/17/16 [History] Brimonidine Tartrate 1 drop RIGHT EYE BID 12/17/16 [History] BuPROPion XL (24 HR) [Wellbutrin Xl] 150 mg PO DAILY 12/17/16 [History] Finasteride [Proscar] 5 mg PO DAILY 12/17/16 [History] Fluticasone/Vilanterol [Breo Ellipta 200-25 Mcg INH] 1 puff IH DAILY 12/17/16 [ History] Furosemide [Lasix] 40 mg PO DAILY 12/17/16 [History] Metoprolol [Lopressor] 50 mg PO QAM 12/17/16 [History] Oxygen 2 l NS AD 12/17/16 [History] Tiotropium [Spiriva] 18 mcg IH DAILY 12/17/16 [History] Amlodipine [Norvasc] 5 mg PO DAILY #30 tablet 12/19/16 [Rx] Allergies No Known Allergies Allergy (Verified 09/09/16 10:54) All Systems Review: A 10-system review of systems was performed and is negative for pertinent findings except as documented above in the HPI. - Cardiovascular Cardiovascular: as per HPI, dyspnea on exertion, leg edema, lightheadedness, rapid heart rate - Respiratory Respiratory: dyspnea - Neurological Neurological: dizziness Physical Examination Vital Signs, Last 4 Hours Temp Pulse Resp BP Pulse Ox 01/01/17 07:53 95 01/01/17 07:34 97.5 F L 97 16 102/86 95 Vital Signs Temp Pulse Resp BP Pulse Ox 01/01/17 07:53 95 01/01/17 07:34 97.5 F L 97 16 102/86 95 01/01/17 05:04 97.7 F 114 18 148/84 96 12/31/16 23:53 97.8 F 106 20 111/71 96 12/31/16 18:50 97.9 F 137 24 104/83 94 12/31/16 18:16 20 127/88 12/31/16 17:46 151 18 126/105 94 12/31/16 16:35 140 18 127/102 95 12/31/16 15:52 156 16 156/114 94 12/31/16 15:18 98.2 F 159 18 155/118 97 Intake and Output 12/31/16 01/01/17 01/01/17 23:59 07:59 15:59 Intake Total 216.4 / 216.4 120 / 120 Output Total 0 / 0 350 / 350 Balance 216.4 / 216.4 -230 / -230 Intake: IV Fluids 116.4 / 116.4 120 / 120 Cardizem 125 MG In 116.4 / 116.4 120 / 120 Dextrose 5% 100 ML @ 15 MG/HR 15 mls/hr IVC . Q8H20M [facility] Rx#:[id number] Oral 100 / 100 Output: Urine 0 / 0 Catheter 350 / 350 Other: # Voids 1 Weight 109.8 kg General: Conversant, No Apparent Distress HEENT: Atraumatic, Normocephaly, Mucus Membranes Moist Neck: No JVD, Normal carotid pulses Cardiac: Other (irregular) Lungs: Other (diminished) Neuro: Alert and responsive, No focal deficits noted Abdomen: Soft, Non-Tender Skin: No rashes noted on visualized skin Musculoskeletal: No Chest Wall Tenderness Extremities: No Clubbing, No Cyanosis, No Edema, Normal Pulses Results 01/01/17 04:12 01/01/17 04:12 Lab Results 01/01/17 01/01/17 01/01/17 04:12 04:12 04:12 WBC 11.0 Hgb 15.5 Hct 46.1 Plt Count 274 Sodium 142 Potassium 3.8 Chloride 106 Carbon Dioxide 22 BUN 17 Creatinine 1.17 Glucose 133 H Calcium 9.2 Magnesium 2.2 Troponin I 01/01/17 04:12 WBC Hgb Hct Plt Count Sodium Potassium Chloride Carbon Dioxide BUN Creatinine Glucose Calcium Magnesium Troponin I 0.03 Short CBC 04/07/17 04/06/17 Range/Units 04:12 16:27 WBC 11.0 11.1 (4.3-11.1) K/mcL Hgb 15.5 15.5 (12.9-16.9) g/dL Hct 46.1 45.8 (37.5-50.1) % Plt Count 274 272 (140-400) K/mcL Neutrophils # 7.3 (1.6-8.9) K/mcL BMP 01/01/17 12/31/16 Range/Units 04:12 16:27 Sodium 142 141 (136-145) mEq/L Potassium 3.8 3.6 (3.5-4.5) mEq/L Chloride 106 105 (98-109) mEq/L Carbon Dioxide 22 27 (19-29) mEq/L BUN 17 18 (8-26) mg/dL Creatinine 1.17 1.16 (0.72-1.25) mg/dL Glucose 133 H 97 (70-99) mg/dL Calcium 9.2 8.6 (8.6-10.8) mg/dL Cardiac Enzymes 01/01/17 12/31/16 Range/Units 04:12 16:27 Troponin I 0.03 0.03 (0-0.03) ng/mL Impressions Chest X-Ray 12/31/16 15:47 IMPRESSION: No acute process. D/ / 12/31/2016 16:12:19 Stanley Cha MD / carina Interpreting Provider: Stanley Cha MD Active Medications Amlodipine Besylate (Norvasc) 5 mg PO DAILY [facility] PRN Reason: Protocol Stop: 07/03/17 09:01 Last Admin: 01/01/17 09:00 Dose: Not Given Aspirin (Aspirin Ec) 81 mg PO DAILY [facility] Stop: 07/03/17 09:01 Last Admin: 01/01/17 08:59 Dose: 81 mg Bupropion HCl (Wellbutrin Xl) 150 mg PO DAILY [facility] Stop: 07/03/17 09:01 Last Admin: 01/01/17 09:00 Dose: 150 mg Clopidogrel Bisulfate (Plavix) 75 mg PO DAILY [facility] Stop: 07/03/17 09:01 Last Admin: 01/01/17 08:59 Dose: 75 mg Enoxaparin Sodium (Lovenox) 110 mg 1 mg/kg (110 mg) SQ Q12HR [facility] PRN Reason: Protocol Stop: 07/03/17 06:01 Last Admin: 01/01/17 05:49 Dose: 110 mg Finasteride (Proscar) 5 mg PO DAILY [facility] PRN Reason: Protocol Stop: 07/03/17 09:01 Last Admin: 01/01/17 08:59 Dose: 5 mg Furosemide (Lasix) 40 mg PO DAILY [facility] Stop: 07/03/17 09:01 Diltiazem HCl 125 mg/ Dextrose 125 mls @ 15 mls/hr IVC .Q8H20M [facility]; 15 MG/HR PRN Reason: Protocol Stop: 07/02/17 19:46 Last Titration: 01/01/17 07:30 Dose: 15 mg/hr, 15 mls/hr Levalbuterol HCl (Xopenex) 1.25 mg IH [id number] PRN PRN Reason: wheeze, shortness of breath Stop: 07/03/17 00:46 Lisinopril (Zestril) 20 mg PO BID [facility] PRN Reason: Protocol Stop: 07/02/17 21:01 Last Admin: 01/01/17 09:00 Dose: Not Given Metoprolol Tartrate (Lopressor) 50 mg PO QAM [facility] Stop: 07/03/17 09:01 Metoprolol Tartrate (Lopressor) 100 mg PO QPM [facility] Stop: 07/02/17 20:01 Last Admin: 01/01/17 09:09 Dose: Not Given Naloxone HCl (Narcan) 0.4 mg IVP Q2MIN PRN PRN Reason: Opioid Reversal Stop: 07/02/17 19:45 Omeprazole (Prilosec) 20 mg PO DAILY [facility] Stop: 07/03/17 09:01 Last Admin: 01/01/17 08:59 Dose: 20 mg Pharmacy Profile Note (Patient Taking Own Medication) 1 each PO DAILY [facility] Stop: 07/03/17 09:01 Last Admin: 01/01/17 08:59 Dose: Not Given Pharmacy Profile Note (Patient Taking Own Medication) 1 each IH DAILY [facility] Stop: 07/03/17 09:01 Last Admin: 01/01/17 08:59 Dose: Not Given Simvastatin (Zocor) 40 mg PO HS [facility] Stop: 07/02/17 21:01 Last Admin: 12/31/16 20:56 Dose: 40 mg Tamsulosin HCl (Flomax) 0.4 mg PO HS [facility] PRN Reason: Protocol Stop: 07/02/17 21:01 Last Admin: 12/31/16 20:56 Dose: 0.4 mg - Imaging and Cardiology Chest Xray: report reviewed Stress Test: report reviewed Echo: report reviewed - EKG Interpretation EKG results cardiology: personally reviewed (A-Flutter, rate 150s), other (24 hour tele AVG HR 114, A-Flutter) Consult Discharge Plan - Plan Referrals: Francis Chamberlain MD [Primary Care Provider] -
[2017-01-01] MEDS: Furosemide 40 MG TABLET PO SCH (09:30)
--- NOTE | 2017-01-01 10:35 | Internal Med Progress Note ---
<Carey Luque - Last Filed: 01/01/17 10:29> Date of Encounter: 01/01/17 Time of Encounter: 10:29 - Assessment and plan (1) Atrial flutter with rapid ventricular response Current Visit: Yes Status: Acute Assessment and plan: Patient presented with palpitations, dizziness and lightheadedness Patient currently on cardizem drip at 10 mg/hr, has been loaded with digoxin. Electrolytes normal. Cardiology following, appreciate input and expertise. Continue cardizem drip. Continue metoprolol. Will decrease lisinopril to allow room for HR control. 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 However, pateint has a TIA 2 weeks ago and was on plavix and aspirin. Cardiology has discontinued plavix. Continue lovenox. Will plan to switch to novel anticoagulate vs coumadin, further recommendations per cardiology. Continue cardiac telemetry (2) Diastolic heart failure Current Visit: No Status: Chronic Assessment and plan: 12/18/16 echo with LVEF 60%, mild LV hypertrophy moderate LV diastolic dysfunction. Cjest xray normal, trace bilateral pedal edema. No evidence of acute exacerbation Continue home lasix Qualifiers: Heart failure chronicity: chronic Qualified Code(s): I50.32 - Chronic diastolic (congestive) heart failure (3) Hypertension Current Visit: Yes Status: Chronic Assessment and plan: Chronic. Stable. Cardiology following, has discontinued home amlodipine. Has decreased lisinopril to allow for better HR control. Continue to monitor. Qualifiers: Hypertension type: essential hypertension Qualified Code(s): I10 - Essential (primary) hypertension (4) TIA (transient ischemic attack) Current Visit: No Status: Resolved Assessment and plan: History of TIA 2 weeks prior to arrival. Has been on aspirin and plavix. Per cardiology, has discontinued plavix. Patient currently on lovenox. Will plan to transition to novel anticoagulant vs coumadin. Qualifiers: Qualified Code(s): G45.9 - Transient cerebral ischemic attack, unspecified (5) COPD (chronic obstructive pulmonary disease) Current Visit: Yes Status: Acute Assessment and plan: Chronic. Stable. Patient recently started on spiriva as outpatient, has had palpitation since then. Will continue to hole spiriva. Continue remainder of home medications. Continue supplemental oxygen. Qualifiers: COPD type: unspecified COPD Qualified Code(s): J44.9 - Chronic obstructive pulmonary disease, unspecified - Subjective Interval history: 76 year old male who presented to the ER with complaints of increased heart rate accompanied by a feeling of lightheadness and dizziness. He was found to be in aflutter with RVR and started on a cardizem drip and admitted for further evaluation. Cardiology following,had discontinued amlodipine, decreasing lisinopril, is titrating cardizem drip. Patient not a candiate for jail anticoagulation due to recent TIA and is currently on asprin/plavix. Patient seen and examined, daughter at bedside. Patient this morning reports that he is feeling well. He has not felt as much of the palpitations since admission. He is not short of breath. He is tolerating diet with no nausea or vomiting. He has no additional concerns or complaints at this time. - Constitutional Vitals: Temp Pulse Resp BP Pulse Ox 97.5 F L 97 16 102/86 95 01/01/17 07:34 01/01/17 07:34 01/01/17 07:34 01/01/17 07:34 01/01/17 07:53 General appearance: Present: cooperative, A&O X 3, pleasant, no acute distress, obese - Head Head exam: Present: atraumatic, normocephalic - Eye Eye exam: Present: normal appearance, PERRL, sclera anicteric. Absent: conjunctival injection - ENT ENT exam: Present: mucous membranes moist, normal external ear exam - Neck Neck exam general surgery: Present: supple, trachea midline - Respiratory Respiratory exam: Present: CTAB. Absent: rales, rhonchi, stridor, wheezes - Cardiovascular Cardiovascular exam: Present: irregular rhythm, +S1, +S2, tachycardia. Absent: clicks, diastolic murmur, gallop, rubs, systolic murmur - GI/Abdominal GI/Abdominal exam: Present: normal bowel sounds, soft. Absent: distended, guarding, rebound, tenderness - Extremities Exam Extremities exam: Present: normal capillary refill, radial pulses palpable and symetrical. Absent: pedal edema - Psychiatric Psychiatric exam: Present: normal affect, normal mood - Skin Skin exam: Present: dry, intact, warm Internal Medicine: Result - Labs CBC & Chem 7: 01/01/17 04:12 01/01/17 04:12 Labs: Short CBC 01/01/17 Range/Units 04:12 WBC 11.0 (4.3-11.1) K/mcL Hgb 15.5 (12.9-16.9) g/dL Hct 46.1 (37.5-50.1) % Plt Count 274 (140-400) K/mcL Neutrophils # 7.3 (1.6-8.9) K/mcL BMP 01/01/17 04:12 Sodium 142 Potassium 3.8 Chloride 106 Carbon Dioxide 22 BUN 17 Creatinine 1.17 Glucose 133 H Calcium 9.2 Cardiac Enzymes 01/01/17 Range/Units 04:12 Troponin I 0.03 (0-0.03) ng/mL Consult Discharge Plan - Plan Referrals: Francis Chamberlain MD [Primary Care Provider] - 01/06/17 3:00 pm <Hernandez Del Valle - Last Filed: 01/01/17 16:47> Date of Encounter: 01/01/17 - Constitutional Vitals: Temp Pulse Resp BP Pulse Ox 98.2 F 69 16 144/89 97 01/01/17 15:35 01/01/17 15:35 01/01/17 15:35 01/01/17 15:35 01/01/17 15:35 Internal Medicine: Result - Labs CBC & Chem 7: 01/01/17 04:12 01/01/17 04:12 Labs: Short CBC 01/01/17 Range/Units 04:12 WBC 11.0 (4.3-11.1) K/mcL Hgb 15.5 (12.9-16.9) g/dL Hct 46.1 (37.5-50.1) % Plt Count 274 (140-400) K/mcL Neutrophils # 7.3 (1.6-8.9) K/mcL BMP 01/01/17 04:12 Sodium 142 Potassium 3.8 Chloride 106 Carbon Dioxide 22 BUN 17 Creatinine 1.17 Glucose 133 H Calcium 9.2 Cardiac Enzymes 01/01/17 Range/Units 04:12 Troponin I 0.03 (0-0.03) ng/mL - Attending Attestation I examined this patient and my medical decision-making was reviewed with the STAFFING DIRECTOR/PA/Advanced Practice Nurse/Resident Physician. I agree with the documented findings, disposition and treatment plan as described except to the extent set forth below.
[2017-01-01] MEDS: Levalbuterol Neb 1.25 MG/3 ML IH SCH ×3 (11:54→22:54)
[2017-01-01] MEDS: Diltiazem CD (24hr) 240 MG CAPSULE PO SCH (16:09)
--- NOTE | 2017-01-01 16:49 | Electrocardiograph Report ---
[place] [id number] Test Date: 2016-12-31 Pat Name: Lj Moon Department: 104 Room: [facility] Gender: M Spare Person: NAIF : 1940 Requested By: Luis Armando Gibson Order Number: [id number] Reading MD: Vanessa Mckeon Measurements Intervals [place] Rate: 159 P: DE: 0 QRS: 21 QRSD: 86 T: 105 QT: 270 QTc: 359 Interpretive Statements ATRIAL FLUTTER WITH RAPID VENTRICULAR RESPONSE NONSPECIFIC ST \T\ T-WAVE ABNORMALITY Electronically Signed On 01-01-2017 16:48:04 EDT by Vanessa Mckeon
--- NOTE | 2017-01-01 18:19 | Event Note ---
Date of Encounter: 01/01/17 Time of Encounter: 18:17 Overall, HR seems much better controlled. Eliquis started earlier today. Continue Cardizem and Metoprolol. Titrate as needed. No further inpatient cardiology recommendations at this time. Followup with cardiology as outpatient. Please call with any questions or concerns. Thanks, Ashutosh Avila DO, FACC
[2017-01-01] MEDS: APIXABAN 5 MG TABLET PO SCH (22:26)
[2017-01-02] MEDS: Levalbuterol Neb 1.25 MG/3 ML IH SCH (04:32)
--- NOTE | 2017-01-02 08:16 | Discharge Summary ---
<Carey Luque - Last Filed: 01/02/17 08:13> Date of Encounter: 01/02/17 Time of Encounter: 08:13 - Discharge Diagnosis (1) Atrial flutter with rapid ventricular response Priority: Primary Status: Acute Comments: Patient initially presented with palpitations, dizziness and lightheadedness. Currently all resolved. On arrival to ER was found to be in atrial flutter with RVR, patient was started on cardizem drip. Drip discontinued. Continue cardizem ER 240 mg daily Cardiology consulted, arpreciate input and expertise. Discontinue plavix and started patient on eliquis. Recommended follow up as outpatient. Continue metoprolol as per home dosing. Patient was in normal rhythm prior to discharge. (2) Diastolic heart failure Priority: Primary Status: Chronic Comments: 12/18/16 echocardiogram with LVEF 60%, mild LV hypertrophy, moderate LV diastolic dysfunction. Chest xray normal, pateint has trace bilateral pedal edema (chronic) No evidence of acute exacerbation Continue home lasix. Qualifiers: Heart failure chronicity: chronic Qualified Code(s): I50.32 - Chronic diastolic (congestive) heart failure (3) Hypertension Priority: Primary Status: Chronic Comments: Chronic. Stable Cardiology following. Discontinued home amlodipine. Blood pressure stable on discharge. Qualifiers: Hypertension type: essential hypertension Qualified Code(s): I10 - Essential (primary) hypertension (4) COPD (chronic obstructive pulmonary disease) Priority: Primary Status: Acute Comments: Chronic. Stable. No evidence of acute exacerbation during stay. Will be discharged on home medications. Follow up with PCP within 1 week after discharge. Qualifiers: COPD type: unspecified COPD Qualified Code(s): J44.9 - Chronic obstructive pulmonary disease, unspecified - Discharge Medications Prescriptions: Apixaban [Eliquis] 5 mg PO BID 30 Days Diltiazem CD (24hr) [Cardizem CD] 240 mg PO DAILY 30 Days Home Medications: Aspirin [Adult Low Dose Aspirin EC] 81 mg PO DAILY 12/20/15 [History] Atorvastatin [Lipitor] 40 mg PO HS 12/20/15 [History] Ezetimibe [Zetia] 10 mg PO DAILY 12/20/15 [History] Lisinopril [Zestril] 20 mg PO BID 12/20/15 [History] Metoprolol [Lopressor] 100 mg PO QPM 12/20/15 [History] Omeprazole 20 mg PO DAILY 02/23/16 [History] Tamsulosin [Flomax] 0.4 mg PO DAILY 02/23/16 [History] Albuterol Sulfate [Ventolin Hfa] 2 puff IH Q4H PRN 12/17/16 [History] Brimonidine Tartrate 1 drop RIGHT EYE BID 12/17/16 [History] BuPROPion XL (24 HR) [Wellbutrin Xl] 150 mg PO DAILY 12/17/16 [History] Finasteride [Proscar] 5 mg PO DAILY 12/17/16 [History] Fluticasone/Vilanterol [Breo Ellipta 200-25 Mcg INH] 1 puff IH DAILY 12/17/16 [ History] Furosemide [Lasix] 40 mg PO DAILY 12/17/16 [History] Metoprolol [Lopressor] 50 mg PO QAM 12/17/16 [History] Oxygen 2 l NS AD 12/17/16 [History] Tiotropium [Spiriva] 18 mcg IH DAILY 12/17/16 [History] Apixaban [Eliquis] 5 mg PO BID 30 Days 01/02/17 [Rx] Diltiazem CD (24hr) [Cardizem CD] 240 mg PO DAILY 30 Days 01/02/17 [Rx] Allergies/Adverse Reactions: Allergies No Known Allergies Allergy (Verified 09/09/16 10:54) Date of admission: 12/31/16 18:04 Primary care physician: Francis Chamberlain MD Consults: 12/31/16 19:46 Consult to Cardiology [CONS] Routine Comment: Consulting Provider: Cardiology [place] Reason for Consult: new onset afib with RVR Call Completed: Yes 01/01/17 09:36 Consult to Testing Machine Operator [CONS] Routine Reason for SW Consult: Living will Discharging clinician: Hernandez Del Valle Anticipated date of discharge: 01/02/17 - Patient Status Disposition: Home, Self-Care Condition: Good Functional capacity at discharge: independent ambulation Overall status at discharge: patient is progressing back to baseline - Discharge Instructions Instructions: Apixaban (By mouth), Atrial Flutter (DC) Follow Up With: Francis Chamberlain MD [Primary Care Provider] - 01/06/17 3:00 pm Ashutosh Avila DO [Partnered Physician] - - Diet and Activity Activity: resume usual activities as tolerated Diet: low fat, low cholesterol, low salt diet Interval History: 76 year old male with HTN, COPD, CHF, CAD, history of CVA with recent TIA (2 weeks prior to admission) who presented to ER with complaints of palpitations, dizziness and lightheadeness Patient and family reported symptoms started after he was started on spiriva. On evaluation in the ER he was noted to have atrial flutter with RVR and a HR of 150s. He received a cardizem bolus and started on a cardizem drip after which he remained in RVR. Cardiology was consulted and recommended a digoxin bolus. Patient was maintained on cardizem drip until he was converted back to a normal rate and rhythm. He was maintained on his home metoprolol dosing of 50 mg in morning and 100 mg in evening. Cardiology evaluated with recommendation of discontinuation of plavix and switched patient to eliquis prior to discharge. He was discharged with a prescription for a 30 day supply of eliquis. He was transitioned off of the cardizem drip and was discharged with a script for oral cadizem. He did not have an acute exacerbation of his known CHF or his COPD during stay. He was maintained on his medications of lasix and lisinopril for his CHF/hypertension. Cardiology recommended discontinuation of amlodipine, and this was discontinued prior to discharge. He was maintained on his home COPD medications , spiriva was held while he was in the hospital but was resumed on discharge. He was advised to follow up with his PCP to discuss his COPD medications further. On day of discharge, he was not having any palpitations, dizziness, lightheadedness, chest pain or shortness of breath. He was tolerating diet with no difficulty. He was instructed to follow up with cardiology within 1-2 weeks after discharge and to follow up with his PCP within one week of discharge. Hospital course: Mr. Moon is a 76 year old male - Time Spent with Patient Total time spent providing and/or coordinating discharge services: - Constitutional Vitals: Temp Pulse Resp BP Pulse Ox 97.6 F 70 16 118/67 95 01/02/17 07:29 01/02/17 07:29 01/02/17 07:29 01/02/17 07:29 01/02/17 07:29 General appearance: Present: cooperative, A&O X 3, pleasant, no acute distress, obese, answers questions appropriately - Head Head exam: Present: atraumatic, normocephalic - Eye Eye exam: Present: normal appearance, PERRL, sclera anicteric. Absent: conjunctival injection, conjuntiva pink - ENT ENT exam: Present: mucous membranes moist, normal external ear exam - Neck Neck exam general surgery: Present: supple, trachea midline - Respiratory Respiratory exam: Present: wheezes (scattered wheezes anteriorly otherwise clear to auscultation bilaterally ). Absent: accessory muscle use, rales, respiratory distress, rhonchi, stridor - Cardiovascular Cardiovascular exam: Present: RRR, +S1, +S2. Absent: clicks, diastolic murmur, gallop, rubs, systolic murmur - GI/Abdominal GI/Abdominal exam: Present: normal bowel sounds, soft. Absent: distended, guarding, rebound, tenderness - Extremities Exam Extremities exam: Present: normal capillary refill, radial pulses palpable and symetrical. Absent: pedal edema - Psychiatric Psychiatric exam: Present: normal affect, normal mood - Skin Skin exam: Present: dry, intact, warm - VTE Documentation of Mechanical Device: Graduated compression elastic hosiery <Hernandez Del Valle P - Last Filed: 01/02/17 10:57> Date of Encounter: 01/02/17 Date of admission: 12/31/16 18:04 Primary care physician: Francis Chamberlain MD Consults: 12/31/16 19:46 Consult to Cardiology [CONS] Routine Comment: Consulting Provider: Cardiology [place] Reason for Consult: new onset afib with RVR Call Completed: Yes 01/01/17 09:36 Consult to Testing Machine Operator [CONS] Routine Reason for SW Consult: Living will Hospital course: Mr. Moon is a 76 year old male - Time Spent with Patient Total time spent providing and/or coordinating discharge services: - Constitutional Vitals: Temp Pulse Resp BP Pulse Ox 97.6 F 70 16 118/67 95 01/02/17 07:29 01/02/17 07:29 01/02/17 07:29 01/02/17 07:29 01/02/17 08:00 - Attending Attestation I examined this patient and my medical decision-making was reviewed with the PORT DRIER/PA/Advanced Practice Nurse/Resident Physician. I agree with the documented findings, disposition and treatment plan as described except to the extent set forth below.
[2017-01-02] MEDS ORDERED: Lisinopril 20 MG TABLET PO SCH (09:00)
[2017-01-02] MEDS: BuPROPion XL (24 HR) 150 MG TABLET PO SCH (09:22)
[2017-01-02] MEDS: Aspirin Enteric Coated 81 MG Tablet PO SCH (09:22)
[2017-01-02] MEDS: Diltiazem CD (24hr) 240 MG CAPSULE PO SCH (09:22)
[2017-01-02] MEDS: APIXABAN 5 MG TABLET PO SCH (09:22)
[2017-01-02] MEDS: Finasteride 5 MG TABLET PO SCH (09:22)
[2017-01-02] MEDS: Furosemide 40 MG TABLET PO SCH (09:23)
[2017-01-02] MEDS: BREO ELLIPTA IH SCH (09:24)
[2017-01-05 10:36] VITALS: BP 118/67
== END 2017-01-02 10:58 | disposition home or self-care (01) ==
LOC: EMEROO 15:06 → 2NENU 15:06
PROVIDERS: ADMIT Internal Medicine; ATTEND Internal Medicine

== ENCOUNTER 2017-02-19 15:39 | Inpatient (IN) ==
[2017-02-19 16:29] LABS: Basophils % 0.5 %; Hemoglobin 14.1 g/dL (12.9-16.9); Immature Granulocytes % 0.5 % (0-4); Lymphocytes # 0.6 K/mcL (0.6-4.6); Lymphocytes % 15.5 %; Mean Corpuscular HGB Conc 33.6 g/dL (31.6-35.5); Mean Corpuscular Hemoglobin 27.6 pg (28.0-33.3); Mean Corpuscular Volume 82.4 fL (83.0-100.0); Mean Platelet Volume 9.9 fL (9.4-12.4); Monocytes # 0.3 K/mcL (0.0-1.3); Monocytes % 6.4 %; Platelet Count 103 K/mcL (140-400); Segmented Neutrophils % 77.1 %
[2017-02-19 16:32] LABS: Carboxyhemoglobin 2.5 % (0-5); VBG HCO3 27.8 mEq/L (21-27); VBG PH 7.44 pH Units (7.32-7.42)
[2017-02-19 16:34] LABS: Neutrophils # 3.2 K/mcL (1.6-8.9)
[2017-02-19 16:36] LABS: INR 1.3; Prothrombin Time 14.6 Seconds (9.4-12.1)
[2017-02-19 16:47] LABS: Alanine Aminotransferase 115 Units/L (0-55); Albumin 3.3 g/dL (3.5-5.0); Albumin/Globulin Ratio 1.1 (1.1-2.2); Alkaline Phosphatase 94 Units/L (38-126); Aspartate Amino Transferase 91 Units/L (5-34); BUN/Creatinine Ratio 14 (6-26); Bilirubin,Total 1.8 mg/dL (0.2-1.2); Blood Urea Nitrogen 16 mg/dL (8-26); Calcium 8.6 mg/dL (8.6-10.8); Carbon Dioxide 26 mEq/L (19-29); Chloride 102 mEq/L (98-109); Globulin 2.9 g/dL (2.4-3.5); Glucose 129 mg/dL (70-99); Osmolality,Calculated 285 (280-300); Potassium 3.9 mEq/L (3.5-4.5); Sodium 136 mEq/L (136-145); Total Protein 6.2 g/dL (6.0-8.3); eGFR For African Americans > 60 (> 60); eGFR For Non-African Americans > 60 (> 60)
[2017-02-19 16:51] LABS: Acetaminophen < 1.0 mcg/mL (10-30); Salicylate < 5.0 mg/dL (15-30)
[2017-02-19 17:09] LABS: Thyroid Stimulating Hormone 3.719 mcIU/mL (0.350-4.840)
[2017-02-19] MEDS ORDERED: Aspirin 325 MG TABLET PO ONE (18:12)
--- NOTE | 2017-02-19 19:26 | Emergency Department Note ---
Disposition Clinical Impression: Dizziness Disposition: Admitted As Inpatient Condition: Fair General Adult HPI - General Chief complaint: ED Dizziness Stated complaint: dizziness Time Seen by Provider: 02/19/17 15:59 Source: patient Limitations: no limitations Nursing Notes Reviewed: Yes Vital Signs Reviewed: Yes - History of Present Illness HPI Narrative: 76-year-old male who presents with concern for dizziness. The onset of his dizziness was 3 days ago and was accompanied by some confusion. He has had intermittent ataxia which resulted in a fall today. He did not strike his head with falling. He actually caught himself with his right hand. His family was concerned because he was having ongoing dizziness with a history of stroke. He is on Plavix. He takes aspirin as well. He has no focal neurological deficit on arrival. His NIH score is 0. He has no dysphagia or dysarthria. This is a male patient with a history of stroke who now has ataxia. I am concerned about posterior circulation infarct. As such I obtained a CT angiography of the head and neck. 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 The patient has no dysphagia or dysarthria. He has no difficulty with secretions. He will need outpatient follow-up with your nose and throat. In regards to his CT angiography. There is some mild abnormalities noted however no note of acute infarct. I did administer a full dose aspirin. Given that he is having intermittent confusion accompanied by dizziness I do not think this is a benign vertigo. Plan to admit for MRI to rule out posterior circulation infarction. EKG shows sinus rhythm with normal axis and normal intervals and nonspecific ST segment changes. EKG is nonspecific. Pain Scale: 0 - Related Data Home Medications Medication Instructions Recorded Confirmed Aspirin [Adult Low Dose Aspirin EC] 81 mg PO DAILY 12/20/15 02/19/17 Atorvastatin [Lipitor] 40 mg PO HS 12/20/15 02/19/17 Ezetimibe [Zetia] 10 mg PO DAILY 12/20/15 02/19/17 Lisinopril [Zestril] 20 mg PO BID 12/20/15 02/19/17 Omeprazole 20 mg PO DAILY 02/23/16 02/19/17 Tamsulosin [Flomax] 0.4 mg PO DAILY 02/23/16 02/19/17 Albuterol Sulfate [Ventolin Hfa] 2 puff IH Q4H PRN 12/17/16 02/19/17 Brimonidine Tartrate 1 drop RIGHT EYE BID 12/17/16 02/19/17 BuPROPion XL (24 HR) [Wellbutrin 150 mg PO DAILY 12/17/16 02/19/17 Xl] Finasteride [Proscar] 5 mg PO DAILY 12/17/16 02/19/17 Fluticasone/Vilanterol [Breo 1 puff IH DAILY 12/17/16 02/19/17 Ellipta 200-25 Mcg INH] Metoprolol [Lopressor] 50 mg PO DAILY 12/17/16 02/19/17 Oxygen 2 l NS AD 12/17/16 02/19/17 Budesonide/Formoterol 160/4.5 2 puff IH BIDR 02/19/17 02/19/17 [Symbicort 160/4.5] Clopidogrel [Plavix] 75 mg PO DAILY 02/19/17 02/19/17 Furosemide [Lasix] 20 mg PO DAILY 02/19/17 02/19/17 Previous Rx's Medication Instructions Recorded Apixaban [Eliquis] 5 mg PO BID 30 Days 01/02/17 Diltiazem CD (24hr) [Cardizem CD] 240 mg PO DAILY 30 Days 01/02/17 Allergies Allergy/AdvReac Type Severity Reaction Status Date / Time No Known Allergies Allergy Verified 01/30/17 22:02 All systems ED: reviewed and negative except as stated. Past Medical History - Past Medical History Medical history: Reports: asthma, CHF, coronary artery disease, CVA, GERD, hyperlipidemia, hypertension, myocardial infarction, TIA, other Surgical history: Reports: angioplasty/stent, LE stent(s) Psychiatric history: Reports: no psych history - Social History Smoking Status: Former smoker Smokeless Tobacco Status: No Alcohol use: Reports: none Drug use: Reports: none Physical Exam Appears alert, oriented, intermittently confused but currently alert and oriented and following commands. No focal neurological deficit. Strength 5/5, sensation normal. - General Limitations: no limitations General appearance: alert - Head Head exam: atraumatic - Eye Eye exam: Present: normal appearance - ENT ENT exam: normal exam, normal oropharynx - Neck Neck exam: Present: normal inspection, full ROM - Chest Chest inspection: Present: normal inspection, symmetric chest wall rise - Respiratory Respiratory exam: Present: normal lung sounds bilaterally - Cardiovascular Cardiovascular exam: Present: regular rate, normal rhythm - Abdominal Exam Abdominal exam: Present: soft, Non-Tender - Extremities Exam Extremities exam: Present: normal inspection, full ROM - Expanded Lower Extremity Exam Hip/Pelvis exam: Present: normal inspection, full ROM Upper leg exam: Present: normal inspection, full ROM Knee exam: Present: normal inspection, full ROM Lower leg exam: Present: normal inspection, full ROM Ankle exam: Present: normal inspection, full ROM Foot/toe exam: Present: normal inspection, full ROM Neurovascular/Tendon exam: Present: normal capillary refill, pulse deficit - Back Exam Back exam: Present: normal inspection, full ROM - Neurological Exam Neurological exam: Present: alert, oriented X3, CN II-XII intact, reflexes normal. Absent: motor sensory deficit - Psychiatric Psychiatric exam: Present: normal affect - Skin Skin exam: Present: warm, dry Course Vital Signs Temperature 100.0 F H 02/19/17 15:44 Pulse Rate 78 02/19/17 15:44 Respiratory Rate 18 02/19/17 15:44 Blood Pressure 127/81 02/19/17 15:44 O2 Sat by Pulse Oximetry 95 02/19/17 15:44 Temperature 100.0 F H 02/19/17 15:44 Pulse Rate 87 02/19/17 18:16 Respiratory Rate 16 02/19/17 18:16 Blood Pressure 150/86 02/19/17 18:16 O2 Sat by Pulse Oximetry 95 02/19/17 18:16 Oxygen Delivery Oxygen Delivery Room Air Medical Decision Making - [facility] Narrative Medical decision making narrative: This is a male patient with a history of stroke who now has ataxia. I am concerned about posterior circulation infarct. As such I obtained a CT angiography of the head and neck. 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 The patient has no dysphagia or dysarthria. He has no difficulty with secretions. He will need outpatient follow-up with your nose and throat. In regards to his CT angiography. There is some mild abnormalities noted however no note of acute infarct. I did administer a full dose aspirin. Given that he is having intermittent confusion accompanied by dizziness I do not think this is a benign vertigo. Plan to admit for MRI to rule out posterior circulation infarction. EKG shows sinus rhythm with normal axis and normal intervals and nonspecific ST segment changes. EKG is nonspecific. - Medical Records Medical records reviewed: Yes I reviewed the patient's medical records. - Lab Data Lab results reviewed: Yes I reviewed the patient's lab results. Result diagrams: 02/19/17 16:20 02/19/17 16:20 Lab Results 02/19/17 02/19/17 02/19/17 Range/Units 16:05 16:20 16:20 WBC 4.1 L (4.3-11.1) K/mcL RBC 5.10 (4.19-5.50) M/mcL Hgb 14.1 (12.9-16.9) g/dL Hct 42.0 (37.5-50.1) % MCV 82.4 L (83.0-100.0) fL MCH 27.6 L (28.0-33.3) pg MCHC 33.6 (31.6-35.5) g/dL RDW 15.0 H (11.5-14.5) % Plt Count 103 L (140-400) K/mcL MPV 9.9 (9.4-12.4) fL Immature Gran % 0.5 (0-4) % Seg Neutrophils % 77.1 % Lymphocytes % 15.5 % Monocytes % 6.4 % Eosinophils % 0.0 % Basophils % 0.5 % Neutrophils # 3.2 (1.6-8.9) K/mcL Lymphocytes # 0.6 (0.6-4.6) K/mcL Monocytes # 0.3 (0.0-1.3) K/mcL Eosinophils # 0.0 (0.0-0.6) K/mcL Basophils # 0.0 (0.0-0.2) K/mcL PT 14.6 H (9.4-12.1) Seconds INR 1.3 VBG pH (7.32-7.42) pH Units VBG pCO2 (41-51) mmHg VBG pO2 (25-40) mmHg VBG HCO3 (21-27) mEq/L Carboxyhemoglobin (0-5) % Sodium (136-145) mEq/L Potassium (3.5-4.5) mEq/L Chloride (98-109) mEq/L Carbon Dioxide (19-29) mEq/L BUN (8-26) mg/dL Creatinine (0.72-1.25) mg/dL Est GFR ( Amer) (> 60) Est GFR (Non-Af Amer) (> 60) BUN/Creatinine Ratio (6-26) Glucose (70-99) mg/dL POC Glucose 140 H (58-89) Calculated Osmolality (280-300) Lactic Acid (0.5-2.2) mmol/L Calcium (8.6-10.8) mg/dL Total Bilirubin (0.2-1.2) mg/dL AST (5-34) Units/L ALT (0-55) Units/L Alkaline Phosphatase (38-126) Units/L Ammonia (18-72) mcmol/L Troponin I (0-0.03) ng/mL B-Natriuretic Peptide (0-100) pg/mL Serum Total Protein (6.0-8.3) g/dL Albumin (3.5-5.0) g/dL Globulin (2.4-3.5) g/dL Albumin/Globulin Ratio (1.1-2.2) TSH (0.350-4.840) mcIU/mL Salicylates (15-30) mg/dL Acetaminophen (10-30) mcg/mL 02/19/17 02/19/17 02/19/17 Range/Units 16:20 16:20 16:20 WBC (4.3-11.1) K/mcL RBC (4.19-5.50) M/mcL Hgb (12.9-16.9) g/dL Hct (37.5-50.1) % MCV (83.0-100.0) fL MCH (28.0-33.3) pg MCHC (31.6-35.5) g/dL RDW (11.5-14.5) % Plt Count (140-400) K/mcL MPV (9.4-12.4) fL Immature Gran % (0-4) % Seg Neutrophils % % Lymphocytes % % Monocytes % % Eosinophils % % Basophils % % Neutrophils # (1.6-8.9) K/mcL Lymphocytes # (0.6-4.6) K/mcL Monocytes # (0.0-1.3) K/mcL Eosinophils # (0.0-0.6) K/mcL Basophils # (0.0-0.2) K/mcL PT (9.4-12.1) Seconds INR VBG pH (7.32-7.42) pH Units VBG pCO2 (41-51) mmHg VBG pO2 (25-40) mmHg VBG HCO3 (21-27) mEq/L Carboxyhemoglobin (0-5) % Sodium 136 (136-145) mEq/L Potassium 3.9 (3.5-4.5) mEq/L Chloride 102 (98-109) mEq/L Carbon Dioxide 26 (19-29) mEq/L BUN 16 (8-26) mg/dL Creatinine 1.15 (0.72-1.25) mg/dL Est GFR ( Amer) > 60 (> 60) Est GFR (Non-Af Amer) > 60 (> 60) BUN/Creatinine Ratio 14 (6-26) Glucose 129 H (70-99) mg/dL POC Glucose (58-89) Calculated Osmolality 285 (280-300) Lactic Acid 1.3 (0.5-2.2) mmol/L Calcium 8.6 (8.6-10.8) mg/dL Total Bilirubin 1.8 H (0.2-1.2) mg/dL AST 91 H (5-34) Units/L ALT 115 H (0-55) Units/L Alkaline Phosphatase 94 (38-126) Units/L Ammonia 35 (18-72) mcmol/L Troponin I (0-0.03) ng/mL B-Natriuretic Peptide (0-100) pg/mL Serum Total Protein 6.2 (6.0-8.3) g/dL Albumin 3.3 L (3.5-5.0) g/dL Globulin 2.9 (2.4-3.5) g/dL Albumin/Globulin Ratio 1.1 (1.1-2.2) TSH 3.719 (0.350-4.840) mcIU/mL Salicylates < 5.0 L (15-30) mg/dL Acetaminophen < 1.0 L (10-30) mcg/mL 02/19/17 02/19/17 02/19/17 Range/Units 16:20 16:20 16:20 WBC (4.3-11.1) K/mcL RBC (4.19-5.50) M/mcL Hgb (12.9-16.9) g/dL Hct (37.5-50.1) % MCV (83.0-100.0) fL MCH (28.0-33.3) pg MCHC (31.6-35.5) g/dL RDW (11.5-14.5) % Plt Count (140-400) K/mcL MPV (9.4-12.4) fL Immature Gran % (0-4) % Seg Neutrophils % % Lymphocytes % % Monocytes % % Eosinophils % % Basophils % % Neutrophils # (1.6-8.9) K/mcL Lymphocytes # (0.6-4.6) K/mcL Monocytes # (0.0-1.3) K/mcL Eosinophils # (0.0-0.6) K/mcL Basophils # (0.0-0.2) K/mcL PT (9.4-12.1) Seconds INR VBG pH 7.44 H (7.32-7.42) pH Units VBG pCO2 41 (41-51) mmHg VBG pO2 55 H (25-40) mmHg VBG HCO3 27.8 H (21-27) mEq/L Carboxyhemoglobin 2.5 (0-5) % Sodium (136-145) mEq/L Potassium (3.5-4.5) mEq/L Chloride (98-109) mEq/L Carbon Dioxide (19-29) mEq/L BUN (8-26) mg/dL Creatinine (0.72-1.25) mg/dL Est GFR ( Amer) (> 60) Est GFR (Non-Af Amer) (> 60) BUN/Creatinine Ratio (6-26) Glucose (70-99) mg/dL POC Glucose (58-89) Calculated Osmolality (280-300) Lactic Acid (0.5-2.2) mmol/L Calcium (8.6-10.8) mg/dL Total Bilirubin (0.2-1.2) mg/dL AST (5-34) Units/L ALT (0-55) Units/L Alkaline Phosphatase (38-126) Units/L Ammonia (18-72) mcmol/L Troponin I 0.02 (0-0.03) ng/mL B-Natriuretic Peptide 24 (0-100) pg/mL Serum Total Protein (6.0-8.3) g/dL Albumin (3.5-5.0) g/dL Globulin (2.4-3.5) g/dL Albumin/Globulin Ratio (1.1-2.2) TSH (0.350-4.840) mcIU/mL Salicylates (15-30) mg/dL Acetaminophen (10-30) mcg/mL
[2017-02-19] MEDS ORDERED: Acetaminophen 325 MG TABLET PO PRN (19:54)
[2017-02-19] MEDS ORDERED: *HR* OxyCODONE Immed Rel 5 MG TABLET PO PRN (19:54)
[2017-02-19] MEDS ORDERED: Ondansetron 4 MG/2 ML VIAL IVP PRN (19:54)
[2017-02-19] MEDS ORDERED: Naloxone 0.4 MG/ML INJ IVP PRN (19:54)
[2017-02-19] MEDS: Budesonide/Formoterol 160/4.5 MDI IH SCH (20:37)
--- NOTE | 2017-02-19 20:38 | Internal Med History&Physical ---
Date of Encounter: 02/19/17 Time of Encounter: 20:35 Assessment and Plan (1) Dizziness Current visit: Yes Status: Acute Unknown eitology, patient has had extensive work up recently with no apparent cause. Patients symptoms recur about every 2 weeks. Recurrent TIA is in the differential, as well as othrostasis, paroxysmal arrhythmia, hypoxia. duty manager, orthostatic vital signs, continue BB. Will check MRI (2) Atrial flutter Current visit: No Status: Acute Paroxysmal. Patient is currently in NSR. Anticoagulated with Eliquis. Patient reports he is being evaluated for ablation. Paroxysmal arrhythmia could be contributing to his symptoms. Continue Beta yeimi, and anticoagulation Qualifiers: Atrial flutter type: unspecified Qualified Code(s): I48.92 - Unspecified atrial flutter (3) COPD (chronic obstructive pulmonary disease) Current visit: No Status: Acute Stable at this time. Continue aerosol treatments and oxygen therapy Qualifiers: COPD type: unspecified COPD Qualified Code(s): J44.9 - Chronic obstructive pulmonary disease, unspecified (4) CAD (coronary artery disease) Current visit: No Status: Chronic Stable, no EKG changes or chest pain, troponin negative. Continue ASA, plavix, statin Qualifiers: Coronary Disease-Associated Artery/Lesion type: hoh artery [place] vs. transplanted heart: hoh heart Associated angina: without angina Qualified Code(s): I25.10 - Atherosclerotic heart disease of hoh coronary artery without angina pectoris (5) Diastolic heart failure Current visit: No Status: Chronic Recent echo shows normal EF with moderate diastolic dysfunction. No evidence of exacerbation, no pulmonary or lower extremity edema. Continue lasix Qualifiers: Heart failure chronicity: chronic Qualified Code(s): I50.32 - Chronic diastolic (congestive) heart failure (6) Hypertension Current visit: No Status: Chronic Mildly hypertensive, continue home medications, continue to monitor Qualifiers: Hypertension type: essential hypertension Qualified Code(s): I10 - Essential (primary) hypertension (7) DVT prophylaxis Current visit: No Status: Acute Patient is currently anticoagulated on Eliquis Internal Medicine - H&P: HPI Chief complaint: Dizziness Admitted From: Emergency Dept Plans for Post Hospital Care: Home History of present illness: Mr. Moon is a 76 year old male with history of coronary artery disease, paroxysmal A. fib, diastolic heart failure who presents with dizziness. Patient states that his dizziness started 3 days ago, it comes and goes. He states it occurs particularly when standing up. He describes it as a lightheadedness feeling. He denies feeling of the room spinning. He did say that he fell on an outstretched right arm once. He denies any loss of consciousness. Denies hitting his head. Patient states that he has had similar symptoms recently and that every couple weeks he develops these symptoms. He has been seen at this facility before and had extensive workup including evaluation of his carotids, brain MRI he denies fever, chills, chest pain, shortness of breath, palpitations, abdominal pain, nausea, vomiting, diarrhea, dysuria, lower extremity swelling. Past Med Surg Social Fam HX - Past Medical History Medical history: asthma, CHF, coronary artery disease, CVA, GERD, hyperlipidemia , hypertension, myocardial infarction, TIA, other Psychiatric history: no psych history - Past Surgical History Surgical History: angioplasty/stent, LE stent(s) - Social History Smoking Status: Former smoker Smokeless Tobacco Status: No Alcohol use: none Drug use: none - Family History Sister Hx Family Neurologic Disorders: Yes (CVA) Father History Unknown: Yes Hx Family Cancer: Yes (stomach) Internal Medicine - H&P: Meds Aspirin [Adult Low Dose Aspirin EC] 81 mg PO DAILY 12/20/15 [History] Atorvastatin [Lipitor] 40 mg PO HS 12/20/15 [History] Ezetimibe [Zetia] 10 mg PO DAILY 12/20/15 [History] Lisinopril [Zestril] 20 mg PO BID 12/20/15 [History] Omeprazole 20 mg PO DAILY 02/23/16 [History] Tamsulosin [Flomax] 0.4 mg PO DAILY 02/23/16 [History] Albuterol Sulfate [Ventolin Hfa] 2 puff IH Q4H PRN 12/17/16 [History] Brimonidine Tartrate 1 drop RIGHT EYE BID 12/17/16 [History] BuPROPion XL (24 HR) [Wellbutrin Xl] 150 mg PO DAILY 12/17/16 [History] Finasteride [Proscar] 5 mg PO DAILY 12/17/16 [History] Fluticasone/Vilanterol [Breo Ellipta 200-25 Mcg INH] 1 puff IH DAILY 12/17/16 [ History] Metoprolol [Lopressor] 50 mg PO DAILY 12/17/16 [History] Oxygen 2 l NS AD 12/17/16 [History] Apixaban [Eliquis] 5 mg PO BID 30 Days 01/02/17 [Rx] Diltiazem CD (24hr) [Cardizem CD] 240 mg PO DAILY 30 Days 01/02/17 [Rx] Budesonide/Formoterol 160/4.5 [Symbicort 160/4.5] 2 puff IH BIDR 02/19/17 [ History] Clopidogrel [Plavix] 75 mg PO DAILY 02/19/17 [History] Furosemide [Lasix] 20 mg PO DAILY 02/19/17 [History] Allergies No Known Allergies Allergy (Verified 01/30/17 22:02) All Systems PM: A 10-system review of systems was performed and is negative for pertinent findings except as documented above in the HPI. - Constitutional Constitutional: falls, weakness (Generalized), no chills, no fever(s) - EENT Eyes: no blurry vision, no change in vision Nose, mouth and throat: no sinus pain, no sinus pressure, no sore throat - Cardiovascular Cardiovascular ROS IM: lightheadedness, no chest pain, no dyspnea, no edema, no orthopnea, no palpitations, no syncope - Respiratory Respiratory: no cough, no dyspnea, no hemoptysis, no chest congestion, no excessive phlegm production, no change in phlegm color - Gastrointestinal Gastrointestinal: no abdominal pain, no diarrhea, no nausea, no vomiting - Genitourinary Genitourinary ROS male: no dysuria, no hematuria - Musculoskeletal Musculoskeletal ROS IM: no numbness, no tingling - Neurological Neurological ROS: behavioral changes (Sleeping more recently), disequilibrium, dizziness, frequent falls (1), weakness (Generalized), no headache(s), no lack of coordination, no loss of vision, no memory loss, no numbness, no tingling - Psychiatric Psychiatric: no anxiety, no depression - Hematologic/Lymphatic Hematologic/Lymphatic: no easy bleeding, no easy bruising - Constitutional Vitals: Temp Pulse Resp BP Pulse Ox 100 F H 86 18 136/76 94 02/19/17 19:35 02/19/17 19:35 02/19/17 19:35 02/19/17 19:35 02/19/17 19:35 General appearance: Present: A&O X 3, pleasant, no acute distress - Head Head exam: Present: atraumatic, normal inspection, normocephalic - Eye Eye exam: Present: EOMI, PERRL - ENT ENT exam: Present: mucous membranes moist, normal oropharynx - Neck Neck exam general surgery: Present: supple. Absent: tenderness - Respiratory Respiratory exam: Present: CTAB. Absent: rales, rhonchi, wheezes - Cardiovascular Cardiovascular exam: Present: RRR. Absent: gallop, rubs, systolic murmur - GI/Abdominal GI/Abdominal exam: Present: normal bowel sounds. Absent: distended, rigid, tenderness - Extremities Exam Extremities exam: Present: warm. Absent: pedal edema, tenderness - Neurological Exam Neurological exam: Present: alert, CN II-XII intact, oriented X3, reflexes normal, no focal deficits, strengths equal and symetr throughout. Absent: facial droop, speech deficit - Skin Skin exam: Present: dry, intact, warm Internal Med - H&P Results - Labs CBC & Chem 7: 02/19/17 16:20 02/19/17 16:20
[2017-02-19] MEDS ORDERED: Lisinopril 20 MG TABLET PO SCH (21:00)
[2017-02-19] MEDS ORDERED: APIXABAN 5 MG TABLET PO SCH (21:00)
--- NOTE | 2017-02-19 21:44 | Event Note ---
Date of Encounter: 02/19/17 Time of Encounter: 21:42 Patient seen and examined with medical stenographer. Patient presents with dizziness unsteadiness and fall. CT scan of the head shows no evidence of bleed or stroke. We will get MRI of the brain to rule out posterior circulation infarct. Allow permissive hypotension. Physical therapy and occupational therapy to see the patient. Patient is ambulatory at baseline independently. Low-grade fever. Will check urine analysis. I will give small dose of IV Lasix for mild diastolic congestive heart failure. Patient is full code
[2017-02-19] MEDS: Furosemide 20 MG/2 ML VIAL IVP SCH (22:49)
[2017-02-20 00:14] LABS: Bilirubin,Urine Negative (Negative); Blood,Urine Negative (Negative); Clarity,Urine Clear (Clear); Color,Urine Yellow (Yellow); Glucose,Urine (UA) Normal (Normal); Ketones,Urine Negative (Negative); Leukocyte Esterase,Urine Negative (Negative); Nitrite,Urine Negative (Negative); Protein,Urine 30 mg/dL (Neg-Trace); Specific Gravity,Urine > 1.030 (1.010-1.025); Urobilinogen,Urine Normal (Normal)
[2017-02-20 00:15] LABS: Bacteria,Urine None Seen per hpf (None-Few); Hyaline Casts,Urine None Seen per lpf (None-Few); RBC,Urine 0-3 per hpf (0-3); Squamous Epithelial Cell,Urine Moderate per lpf (None-Few); WBC,Urine 0-3 per hpf (0-3)
[2017-02-20 00:20] LABS: Amphetamine Screen,Urine Negative ng/mL (Cutoff=1000); Barbiturate Screen,Urine Negative ng/mL (Cutoff=200); Benzodiazepines Screen,Urine Negative ng/mL (Cutoff=200); Cannabinoid Screen,Urine Negative ng/mL (Cutoff = 50); Cocaine Screen,Urine Negative ng/mL (Cutoff= 300); Opiate Screen,Urine Negative ng/mL (Cutoff=300); Phencyclidine Screen,Urine Negative ng/mL (Cutoff=25)
[2017-02-20 04:48] LABS: Hematocrit 38.1 % (37.5-50.1)
[2017-02-20 04:49] LABS: Hemoglobin 12.9 g/dL (12.9-16.9); Immature Platelets 6.8 % (1.1-6.1); Mean Corpuscular HGB Conc 33.9 g/dL (31.6-35.5); Mean Corpuscular Volume 82.6 fL (83.0-100.0); Mean Platelet Volume 11.6 fL (9.4-12.4); Monocytes # 0.3 K/mcL (0.0-1.3); Red Blood Count 4.61 M/mcL (4.19-5.50); Red Cell Distribution Width 15.1 % (11.5-14.5)
[2017-02-20 04:50] LABS: Platelet Count 94 K/mcL (140-400)
[2017-02-20 04:55] LABS: Alanine Aminotransferase 104 Units/L (0-55); Albumin/Globulin Ratio 1.1 (1.1-2.2); Alkaline Phosphatase 89 Units/L (38-126); Aspartate Amino Transferase 79 Units/L (5-34); BUN/Creatinine Ratio 16 (6-26); Bilirubin,Direct 0.6 mg/dL (0.0-0.5); Bilirubin,Total 1.6 mg/dL (0.2-1.2); Blood Urea Nitrogen 19 mg/dL (8-26); Calcium 8.5 mg/dL (8.6-10.8); Carbon Dioxide 25 mEq/L (19-29); Chloride 103 mEq/L (98-109); Globulin 2.7 g/dL (2.4-3.5); Glucose 148 mg/dL (70-99); Osmolality,Calculated 287 (280-300); Potassium 3.4 mEq/L (3.5-4.5); Sodium 136 mEq/L (136-145); Total Protein 5.7 g/dL (6.0-8.3); eGFR For African Americans > 60 (> 60); eGFR For Non-African Americans 59 (> 60)
[2017-02-20 05:18] LABS: Hepatitis A Antibody IgM Nonreactive (Nonreactive); Hepatitis B Core IgM Nonreactive (Nonreactive); Hepatitis B Surface Antigen Nonreactive (Nonreactive); Hepatitis C Virus Antibody Nonreactive (Nonreactive)
[2017-02-20 05:26] LABS: Basophils # 0.1 K/mcL (0.0-0.2); Large Platelets Present (Not Present); Lymphocytes # 0.8 K/mcL (0.6-4.6); Neutrophils # 2.3 K/mcL (1.6-8.9); Platelet Estimate Decreased (Normal); Reactive Lymphocytes Present (Not Present); Smudge Cells Present (Not Present)
[2017-02-20] MEDS: Budesonide/Formoterol 160/4.5 MDI IH SCH ×2 (08:13→20:17)
[2017-02-20] MEDS ORDERED: Potassium Chloride 20 MEQ, Lidocaine 1% 2 ML in D5% in Water 250 ML IVPB ONE (08:45)
[2017-02-20] MEDS ORDERED: Furosemide 20 MG TABLET PO SCH (09:00)
[2017-02-20] MEDS ORDERED: Diltiazem CD (24hr) 240 MG CAPSULE PO SCH (09:00)
[2017-02-20] MEDS: Aspirin Enteric Coated 81 MG Tablet PO SCH (09:21)
[2017-02-20] MEDS: Furosemide 20 MG/2 ML VIAL IVP SCH ×2 (09:21→17:42)
[2017-02-20] MEDS: BuPROPion XL (24 HR) 150 MG TABLET PO SCH (09:21)
[2017-02-20] MEDS: Finasteride 5 MG TABLET PO SCH (09:21)
[2017-02-20] MEDS: Metoprolol XL (24 HR) Succ 50 MG TAB.ER.24H PO SCH (09:21)
--- NOTE | 2017-02-20 12:44 | Internal Med Progress Note ---
Date of Encounter: 02/20/17 Time of Encounter: 12:42 - Assessment and plan (1) CVA (cerebral vascular accident) Current Visit: Yes Status: Acute Assessment and plan: Stroke workup. Echocardiogram carotid Doppler's MRI will the brain was performed today showing subacute infarct in the left periventricular white matter. Appreciate neurology evaluation. Physical therapy and occupational therapy to see the patient. Qualifiers: Qualified Code(s): I63.9 - Cerebral infarction, unspecified (2) Paroxysmal atrial fibrillation Current Visit: Yes Status: Acute Assessment and plan: Patient is in anticoagulation. Will hold temporarily because of thrombocytopenia. He is an aspirin Plavix (3) Diastolic heart failure Current Visit: No Status: Chronic Assessment and plan: Lasix 20 mg IV twice a day. Qualifiers: Heart failure chronicity: chronic Qualified Code(s): I50.32 - Chronic diastolic (congestive) heart failure (4) Thrombocytopenia Current Visit: Yes Status: Acute Assessment and plan: Likely drug-induced. His platelet count dropped more than 50% compared to his levels earlier this month. I will ask for hematology consultation. Hold eloquis for now. - Subjective Interval history: Patient examined. Notices improvement in his gait unsteadiness and dizziness. MRI of the brain shows subacute infarct in the left posterior periventricular white matter. Still complains of shortness of breath with minimal exertion - Constitutional Vitals: Temp Pulse Resp BP Pulse Ox 98.5 F 74 15 133/60 93 02/20/17 11:00 02/20/17 11:00 02/20/17 11:00 02/20/17 11:00 02/20/17 11:00 General appearance: Present: A&O X 3, pleasant, no acute distress Exam: Gen.: patient is alert oriented times 3 not in distress. Cardiac: normal S1 S2 no additional sounds or murmurs chest: fair air entry. no active wheezing. No crackles or bronchial breathing. abdomen: soft nontender nondistended normal bowel sounds neuro: no motro weakness. Intact cerbeller signs, sensations intact. CN 2-12 intact. Internal Medicine: Result - Labs CBC & Chem 7: 02/20/17 04:03 02/20/17 04:03 Labs: Short CBC 02/20/17 Range/Units 04:03 WBC 3.5 L (4.3-11.1) K/mcL Hgb 12.9 (12.9-16.9) g/dL Hct 38.1 (37.5-50.1) % Plt Count 94 L (140-400) K/mcL Neutrophils # 2.3 (1.6-8.9) K/mcL BMP 02/20/17 04:03 Sodium 136 Potassium 3.4 L Chloride 103 Carbon Dioxide 25 BUN 19 Creatinine 1.19 Glucose 148 H Calcium 8.5 L Liver Function 02/20/17 Range/Units 04:03 Total Bilirubin 1.6 H (0.2-1.2) mg/dL Direct Bilirubin 0.6 H (0.0-0.5) mg/dL AST 79 H (5-34) Units/L ALT 104 H (0-55) Units/L Alkaline Phosphatase 89 (38-126) Units/L Albumin 3.0 L (3.5-5.0) g/dL Urine 02/20/17 Range/Units 00:08 Urine Color Yellow (Yellow) Urine Clarity Clear (Clear) Urine pH 6.0 (5.0-8.0) pH Units Ur Specific [place] > 1.030 H (1.010-1.025) Urine Protein 30 H (Neg-Trace) mg/dL Urine Glucose (UA) Normal (Normal) mg/dL - ABG Interpretation ABG results: PT/INR, D-dimer PT 14.6 Seconds (9.4-12.1) H 02/19/17 16:20 - Impressions Impressions Brain MRI 02/20/17 10:05 IMPRESSION: 1. There appears to be a small subacute infarct within the left posterior periventricular white matter. 2. Otherwise, no acute intracranial abnormality. No acute infarct. 3. Global parenchymal volume loss with chronic microvascular ischemic change. D/ / Jett Leyva MD / Jett Leyva MD Interpreting Provider: Jett Leyva MD Consult Discharge Plan - Plan Referrals: Francis Chamberlain MD [Primary Care Provider] -
[2017-02-21 05:37] LABS: Basophils % 0.6 %; Eosinophils # 0.1 K/mcL (0.0-0.6); Hematocrit 36.8 % (37.5-50.1); Hemoglobin 12.5 g/dL (12.9-16.9); Immature Granulocytes % 0.2 % (0-4); Immature Platelets 8.5 % (1.1-6.1); Lymphocytes # 2.3 K/mcL (0.6-4.6); Lymphocytes % 44.9 %; Mean Corpuscular Hemoglobin 28.2 pg (28.0-33.3); Mean Corpuscular Volume 83.1 fL (83.0-100.0); Mean Platelet Volume 11.7 fL (9.4-12.4); Monocytes # 0.6 K/mcL (0.0-1.3); Monocytes % 12.4 %; Neutrophils # 2.1 K/mcL (1.6-8.9); Red Blood Count 4.43 M/mcL (4.19-5.50); Segmented Neutrophils % 40.9 %
[2017-02-21 05:51] LABS: BUN/Creatinine Ratio 14 (6-26); Blood Urea Nitrogen 18 mg/dL (8-26); Calcium 8.3 mg/dL (8.6-10.8); Carbon Dioxide 28 mEq/L (19-29); Chloride 105 mEq/L (98-109); Glucose 160 mg/dL (70-99); Magnesium 1.8 mg/dL (1.6-2.6); Osmolality,Calculated 293 (280-300); Potassium 3.7 mEq/L (3.5-4.5); Sodium 139 mEq/L (136-145); eGFR For African Americans > 60 (> 60); eGFR For Non-African Americans 54 (> 60)
[2017-02-21 05:58] LABS: Platelet Count 94 K/mcL (140-400)
[2017-02-21 06:01] LABS: Platelet Estimate Slight Decrease (Normal); Reactive Lymphocytes Present (Not Present)
[2017-02-21] MEDS: Budesonide/Formoterol 160/4.5 MDI IH SCH (08:04)
[2017-02-21] MEDS: Finasteride 5 MG TABLET PO SCH (08:45)
[2017-02-21] MEDS: Aspirin Enteric Coated 81 MG Tablet PO SCH (08:45)
[2017-02-21] MEDS: BuPROPion XL (24 HR) 150 MG TABLET PO SCH (08:45)
[2017-02-21] MEDS: Furosemide 20 MG/2 ML VIAL IVP SCH (08:46)
[2017-02-21] MEDS: Metoprolol XL (24 HR) Succ 50 MG TAB.ER.24H PO SCH (08:46)
--- NOTE | 2017-02-21 09:39 | Internal Med Progress Note ---
Date of Encounter: 02/21/17 Time of Encounter: 09:30 - Constitutional Vitals: Temp Pulse Resp BP Pulse Ox 97.4 F L 66 16 142/74 97 02/21/17 07:57 02/21/17 07:57 02/21/17 07:57 02/21/17 07:57 02/21/17 07:57 General appearance: Present: A&O X 3, pleasant, no acute distress Internal Medicine: Result - Labs CBC & Chem 7: 02/21/17 05:20 02/21/17 05:20 Labs: Short CBC 02/21/17 Range/Units 05:20 WBC 5.0 (4.3-11.1) K/mcL Hgb 12.5 L (12.9-16.9) g/dL Hct 36.8 L (37.5-50.1) % Plt Count 94 L (140-400) K/mcL Neutrophils # 2.1 (1.6-8.9) K/mcL BMP 02/21/17 05:20 Sodium 139 Potassium 3.7 Chloride 105 Carbon Dioxide 28 BUN 18 Creatinine 1.30 H Glucose 160 H Calcium 8.3 L - ABG Interpretation ABG results: PT/INR, D-dimer PT 14.6 Seconds (9.4-12.1) H 02/19/17 16:20 Consult Discharge Plan - Plan Referrals: Francis Chamberlain MD [Primary Care Provider] -
[2017-02-21 11:38] VITALS: BP 106/72
--- NOTE | 2017-02-21 11:56 | Neurology - Consult Note ---
Date of Encounter: 02/21/17 Time of Encounter: 11:52 Assessment and Plan (1) CVA (cerebral vascular accident) Current Visit: Yes Status: Acute This appears to be a periventricuar small vessel lacunar infarct. Patient does have history of previous CVA evidenced on the MRI of brain, some of them located at the cortical region, therefore could be related to his history of atrial fibrillation. This current CVA is however, likely small vessel instead of embolic. Patient has worsening thrombocytopenia and is currently consulting hematology. 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 The size of the stroke is small and is expecting him to continue to recover. Advised him to rest at home 2-3 weeks before resuming driving. Risk factor reduction. Continue statin therapy. Thank you very much for the consultation Qualifiers: CVA mechanism: occlusion Precerebral and cerebral artery: unspecified precerebral artery Qualified Code(s): I63.20 - Cerebral infarction due to unspecified occlusion or stenosis of unspecified precerebral arteries History of Present Illness Chief complaint: dizzy and weak on the right side HPI: Mr. Moon is a 76 year old male with PMH significant for atrial fibrillation on NOAC, thrombocytopenia, HTN, DM, hyperlipidemia who developed acute onset of weakness, dizziness. This occurred two days ago. states that he was weakness and slumped over and looked beat. Does admit right sided weakness. Dizziness already resolved. MRI of brain showed subacute lacunar infarct at the left posterior periventricular region which can explain his clinical symptoms. CTA of neck showed 30-50% stenosis bilateral ICAs. Echocardiography Done. Patient does have previous history of CVA. Has paroxysmal atrial fibrillation and been taking NOAC. NOAC was hold due to finding of worsening thrombocytopenia Past Med Surg Social Fam HX - Past Medical History Medical history: asthma, CHF, coronary artery disease, CVA, GERD, hyperlipidemia , hypertension, myocardial infarction, TIA, other Psychiatric history: no psych history - Past Surgical History Surgical History: angioplasty/stent, LE stent(s) - Social History Smoking Status: Former smoker Smokeless Tobacco Status: No Alcohol use: none Drug use: none - Family History Sister Hx Family Neurologic Disorders: Yes (CVA) Father History Unknown: Yes Hx Family Cancer: Yes (stomach) Medications and Allergies Aspirin [Adult Low Dose Aspirin EC] 81 mg PO DAILY 12/20/15 [History] Atorvastatin [Lipitor] 40 mg PO HS 12/20/15 [History] Ezetimibe [Zetia] 10 mg PO DAILY 12/20/15 [History] Lisinopril [Zestril] 20 mg PO BID 12/20/15 [History] Omeprazole 20 mg PO DAILY 02/23/16 [History] Tamsulosin [Flomax] 0.4 mg PO DAILY 02/23/16 [History] Albuterol Sulfate [Ventolin Hfa] 2 puff IH Q4H PRN 12/17/16 [History] Brimonidine Tartrate 1 drop RIGHT EYE BID 12/17/16 [History] BuPROPion XL (24 HR) [Wellbutrin Xl] 150 mg PO DAILY 12/17/16 [History] Finasteride [Proscar] 5 mg PO DAILY 12/17/16 [History] Fluticasone/Vilanterol [Breo Ellipta 200-25 Mcg INH] 1 puff IH DAILY 12/17/16 [ History] Metoprolol [Lopressor] 50 mg PO DAILY 12/17/16 [History] Oxygen 2 l NS AD 12/17/16 [History] Apixaban [Eliquis] 5 mg PO BID 30 Days 01/02/17 [Rx] Diltiazem CD (24hr) [Cardizem CD] 240 mg PO DAILY 30 Days 01/02/17 [Rx] Budesonide/Formoterol 160/4.5 [Symbicort 160/4.5] 2 puff IH BIDR 02/19/17 [ History] Clopidogrel [Plavix] 75 mg PO DAILY 02/19/17 [History] Furosemide [Lasix] 20 mg PO DAILY 02/19/17 [History] Allergies No Known Allergies Allergy (Verified 01/30/17 22:02) All Systems: A 10-system review of systems was performed and is negative for pertinent findings except as documented above in the HPI. Physical Examination - Vital Signs Vital Signs: Initial Vital Signs Temp Pulse Resp BP Pulse Ox 100.0 F H 78 18 127/81 95 02/19/17 15:44 02/19/17 15:44 02/19/17 15:44 02/19/17 15:44 02/19/17 15:44 - Constitutional General appearance: comfortable - Neurologic Sensorimotor examination: intact Detailed motor examination: full strength in all major muscle groups, other ( Subtle weakness to the right side, muscle strength at leaste 4+/5) Motor examination - right side: 5/5: deltoids, biceps, triceps, wrist flexion, wrist extension, tile burner, hip flexors, tibialis Anterior, quadriceps, toe extension (EHL), plantarflexion Motor examination - left side: 5/5: deltoids, biceps, triceps, wrist flexion, wrist extension, hip flexors, tile burner, quadriceps, tibialis Anterior, toe extension (EHL), plantarflexion Detailed sensory examination: intact Posture: other (NOne) Reflexes: Biceps: 1+, Triceps: 1+, Brachioradialis: 1+, Patella: 1+, Achilles: 1 + Mental Status Examination: awake, alert, oriented to person, oriented to place, oriented to time, follows commands appropriately, answers questions appropriately, no agnosia, no aphasia, no aproxia Cranial nerve examination: PERRL, EOMI, visual deng intact, corneal reflexes brisk symmetrically, sensory to face intact, mastication intact, no facial asymmetry is present, no dysarthria, hearing is intact symmetrically, soft palate elevates bilaterally upon phonation, gag reflex intact, flexes SCM and trapezius muscles symmetrically with full power, tongue protrudes midline, no atrophy or facial fasiculations present Cerebellar examination: no dysmetria, performs finger to nose and heel to salmon symmetrically without ataxia, no gait ataxia, no truncal ataxia (Mildy unsteady but able to corret his posture and able to walk without assistance), no difficulty with rapid alternating movements Results - Laboratory Findings CBC and BMP: 02/21/17 05:20 02/21/17 05:20 Abnormal lab findings: Abnormal lab results Hgb 12.5 g/dL (12.9-16.9) L 02/21/17 05:20 Hct 36.8 % (37.5-50.1) L 02/21/17 05:20 RDW 15.0 % (11.5-14.5) H 02/21/17 05:20 Plt Count 94 K/mcL (140-400) L 02/21/17 05:20 Band Neutrophils % 16.0 % (0-4) H 02/20/17 04:03 Reactive Lymphocytes Present (Not Present) A 02/21/17 05:20 Smudge Cells Present (Not Present) A 02/20/17 04:03 Platelet Estimate Slight Decrease (Normal) L 02/21/17 05:20 Large Platelets Present (Not Present) A 02/20/17 04:03 Immature Plt Fraction 8.5 % (1.1-6.1) H 02/21/17 05:20 PT 14.6 Seconds (9.4-12.1) H 02/19/17 16:20 VBG pH 7.44 pH Units (7.32-7.42) H 02/19/17 16:20 VBG pO2 55 mmHg (25-40) H 02/19/17 16:20 VBG HCO3 27.8 mEq/L (21-27) H 02/19/17 16:20 Creatinine 1.30 mg/dL (0.72-1.25) H 02/21/17 05:20 Est GFR (Non-Af Amer) 54 (> 60) L 02/21/17 05:20 Glucose 160 mg/dL (70-99) H 02/21/17 05:20 POC Glucose 127 (58-89) H 02/19/17 19:49 Calcium 8.3 mg/dL (8.6-10.8) L 02/21/17 05:20 Total Bilirubin 1.6 mg/dL (0.2-1.2) H 02/20/17 04:03 Direct Bilirubin 0.6 mg/dL (0.0-0.5) H 02/20/17 04:03 AST 79 Units/L (5-34) H 02/20/17 04:03 ALT 104 Units/L (0-55) H 02/20/17 04:03 Serum Total Protein 5.7 g/dL (6.0-8.3) L 02/20/17 04:03 Albumin 3.0 g/dL (3.5-5.0) L 02/20/17 04:03 Ur Specific [place] > 1.030 (1.010-1.025) H 02/20/17 00:08 Urine Protein 30 mg/dL (Neg-Trace) H 02/20/17 00:08 Ur Squamous Epith Cells Moderate per lpf (None-Few) H 02/20/17 00:08 Salicylates < 5.0 mg/dL (15-30) L 02/19/17 16:20 Acetaminophen < 1.0 mcg/mL (10-30) L 02/19/17 16:20 Consult Discharge Plan - Plan Referrals: Francis Chamberlain MD [Primary Care Provider] -
--- NOTE | 2017-02-21 13:46 | Discharge Summary ---
<Edilberto Pool - Last Filed: 02/21/17 14:12> Date of Encounter: 02/21/17 Time of Encounter: 09:30 - Discharge Diagnosis (1) CVA (cerebral vascular accident) Priority: Primary Status: Acute Qualifiers: CVA mechanism: occlusion Precerebral and cerebral artery: unspecified precerebral artery Qualified Code(s): I63.20 - Cerebral infarction due to unspecified occlusion or stenosis of unspecified precerebral arteries (2) Paroxysmal atrial fibrillation Priority: Secondary Status: Chronic (3) Thrombocytopenia Priority: Secondary Status: Acute (4) COPD (chronic obstructive pulmonary disease) Priority: Secondary Status: Chronic Qualifiers: COPD type: unspecified COPD Qualified Code(s): J44.9 - Chronic obstructive pulmonary disease, unspecified - Discharge Medications Prescriptions: Apixaban [Eliquis] 2.5 mg PO BID #60 tablet Home Medications: Aspirin [Adult Low Dose Aspirin EC] 81 mg PO DAILY 12/20/15 [History] Atorvastatin [Lipitor] 40 mg PO HS 12/20/15 [History] Ezetimibe [Zetia] 10 mg PO DAILY 12/20/15 [History] Lisinopril [Zestril] 20 mg PO BID 12/20/15 [History] Omeprazole 20 mg PO DAILY 02/23/16 [History] Tamsulosin [Flomax] 0.4 mg PO DAILY 02/23/16 [History] Albuterol Sulfate [Ventolin Hfa] 2 puff IH Q4H PRN 12/17/16 [History] Brimonidine Tartrate 1 drop RIGHT EYE BID 12/17/16 [History] BuPROPion XL (24 HR) [Wellbutrin Xl] 150 mg PO DAILY 12/17/16 [History] Finasteride [Proscar] 5 mg PO DAILY 12/17/16 [History] Fluticasone/Vilanterol [Breo Ellipta 200-25 Mcg INH] 1 puff IH DAILY 12/17/16 [ History] Metoprolol [Lopressor] 50 mg PO DAILY 12/17/16 [History] Oxygen 2 l NS AD 12/17/16 [History] Diltiazem CD (24hr) [Cardizem CD] 240 mg PO DAILY 30 Days 01/02/17 [Rx] Budesonide/Formoterol 160/4.5 [Symbicort 160/4.5] 2 puff IH BIDR 02/19/17 [ History] Clopidogrel [Plavix] 75 mg PO DAILY 02/19/17 [History] Furosemide [Lasix] 20 mg PO DAILY 02/19/17 [History] Apixaban [Eliquis] 2.5 mg PO BID #60 tablet 02/21/17 [Rx] Allergies/Adverse Reactions: Allergies No Known Allergies Allergy (Verified 01/30/17 22:02) Date of admission: 02/21/17 05:17 Primary care physician: Francis Chamberlain MD Consults: 02/21/17 11:14 Consult to Neurology [CONS] Routine Consulting Provider: [facility] Reason for Consult: CVA Time Notified: 11:15 Call Completed: Yes Discharging clinician: Hernandez Del Valle Anticipated date of discharge: 02/21/17 - Patient Status Disposition: Home, Self-Care Condition: Fair Functional capacity at discharge: independent ambulation Overall status at discharge: patient is progressing back to baseline - Discharge Instructions Instructions: Transient Ischemic Attack (DC), Chronic Obstructive Pulmonary Disease (DC), Ischemic Stroke (DC), Chronic Hypertension (DC) Follow Up With: Francis Chamberlain MD [Primary Care Provider] - (a request for a follow up has been completed if your doctor office does not call you by wednesday call their office to make an appointment.) Merry Conrad MD [Partnered Physician] - Forms: ED Satisfaction Letter Additional Instructions: Follow up with PCP in 1-2 weeks or sooner if needed. Follow up with Dr. Conrad, hematology, for thrombocytopenia, call office for appointment. Per Neurology, recommended rest at home for 2-3 week before resuming driving. - Diet and Activity Activity: increase activity as tolerated Diet: diabetic diet Interval History: Patient seen and examined today sitting in chair. Patient denies any acute distress, notes BLE edema better than baseline. Denies dizziness. Patient and family feel comfortable with discharge home at this time. Hospital course: Mr. Moon is a 76 year old male with history of coronary artery disease, paroxysmal A. fib, diastolic heart failure that presented to the ED with dizziness that started 3 days ago, noted to be intermittent and worse with standing up. Admitted to falling once onto his right arm, outstretched. Denied any loss of consciousness or hitting his head. Patient reported similar symptoms every couple weeks. Denied fever, chills, chest pain, shortness of breath, palpitations, abdominal pain, nausea, vomiting, diarrhea, dysuria. Did note some difficulty urinating, history of prostate issues. Noted to have thrombocytopenia with platelet at bginning of January 280s; this admission 103>94>94 , elliquis temporarily held. Echocardiogram done 3 months ago, no indication to repeat at this visit. EF 60% , mild LV hypertrophy. Neck MRI with 40% stenosis of R external carotid, 50% of L left internal carotid. Submucosal mass of left aryepiglottic fold, follow with PCP may need direct visualization. 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 Symptoms resolved, seen by neurology. Advised him to rest at home 2-3 weeks before resuming driving. Risk factor reduction. Continue statin therapy. Discussed case with Hematology, recommending retarting elliquis at lower dose of 2.5mg BID, with outpatient follow up. Time spent discussing smoking cessation with patient: 3 to 10 minutes - Time Spent with Patient Total time spent providing and/or coordinating discharge services: Less than 30 minutes - Constitutional Vitals: Temp Pulse Resp BP Pulse Ox 97.4 F L 62 16 106/72 95 02/21/17 07:57 02/21/17 11:37 02/21/17 08:04 02/21/17 11:37 02/21/17 08:04 General appearance: Present: cooperative, A&O X 3, pleasant, no acute distress, answers questions appropriately - Head Head exam: Present: atraumatic, normocephalic - Eye Eye exam: Present: EOMI, conjuntiva pink - ENT ENT exam: Present: mucous membranes moist - Neck Neck exam general surgery: Present: full ROM - Respiratory Respiratory exam: Present: decreased breath sounds, CTAB - Cardiovascular Cardiovascular exam: Present: RRR. Absent: tachycardia - GI/Abdominal GI/Abdominal exam: Present: soft. Absent: guarding, tenderness - Extremities Exam Extremities exam: Present: pedal edema (trace left LE edema). Absent: cyanotic , tenderness - Neurological Exam Neurological exam: Present: alert, oriented X3, no focal deficits. Absent: speech deficit - Psychiatric Psychiatric exam: Present: normal affect, normal mood - Skin Skin exam: Present: dry, normal color, warm. Absent: cyanosis, rash <Hernandez Del Valle P - Last Filed: 02/21/17 16:15> Date of Encounter: 02/21/17 Date of admission: 02/21/17 05:17 Primary care physician: Francis Chamberlain MD Consults: 02/21/17 11:14 Consult to Neurology [CONS] Routine Consulting Provider: [facility] Reason for Consult: CVA Time Notified: 11:15 Call Completed: Yes Hospital course: Mr. Moon is a 76 year old male - Time Spent with Patient Total time spent providing and/or coordinating discharge services: - Constitutional Vitals: Temp Pulse Resp BP Pulse Ox 97.4 F L 62 16 106/72 95 02/21/17 07:57 02/21/17 11:37 02/21/17 08:04 02/21/17 11:37 02/21/17 08:04 - Attending Attestation I examined this patient and my medical decision-making was reviewed with the GARNETTER/PA/Advanced Practice Nurse/Resident Physician. I agree with the documented findings, disposition and treatment plan as described except to the extent set forth below.
--- NOTE | 2017-02-23 07:20 | Electrocardiograph Report ---
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
--- NOTE | 2017-02-23 17:08 | Electrocardiograph Report ---
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
== END 2017-02-21 15:45 | disposition home or self-care (01) | DRG 65 ==
LOC: EMEROO 15:39 → 2NENU 15:39
PROVIDERS: ADMIT Hospitalist; ATTEND Internal Medicine

== ENCOUNTER 2017-09-06 12:32 | Inpatient (IN) ==
--- NOTE | 2017-09-05 17:03 | Discharge Summary ---
<Ashley Watkins E - Last Filed: 09/05/17 17:01> Date of Encounter: 09/05/17 - Discharge Diagnosis (1) Osteoarthritis of right knee Priority: Primary Status: Chronic Qualifiers: Osteoarthritis type: unspecified Qualified Code(s): M17.11 - Unilateral primary osteoarthritis, right knee (2) CAD (coronary artery disease) Priority: Secondary Status: Chronic Qualifiers: Coronary Disease-Associated Artery/Lesion type: unspecified vessel or lesion type [place] vs. 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 Priority: Secondary Status: Chronic Comments: Patient takes Eliquis (4) Paroxysmal atrial flutter Priority: Secondary Status: Chronic (5) HTN (hypertension) Priority: Secondary Status: Chronic Qualifiers: Hypertension type: unspecified Qualified Code(s): I10 - Essential (primary ) hypertension (6) COPD (chronic obstructive pulmonary disease) Priority: Secondary Status: Chronic Qualifiers: COPD type: unspecified COPD Qualified Code(s): J44.9 - Chronic obstructive pulmonary disease, unspecified (7) GERD (gastroesophageal reflux disease) Priority: Secondary Status: Chronic Qualifiers: Esophagitis presence: esophagitis presence not specified Qualified Code(s) : K21.9 - Gastro-esophageal reflux disease without esophagitis (8) BPH (benign prostatic hyperplasia) Priority: Secondary Status: Chronic Qualifiers: Lower urinary tract symptom presence: unspecified whether lower urinary tract symptoms present Qualified Code(s): N40.0 - Benign prostatic hyperplasia without lower urinary tract symptoms (9) Diabetes Priority: Secondary Status: Chronic Qualifiers: Diabetes mellitus type: type 2 Diabetes mellitus complication status: with unspecified complications Diabetes mellitus terminal worker insulin use: without terminal worker use Qualified Code(s): E11.8 - Type 2 diabetes mellitus with unspecified complications (10) History of stroke Priority: Secondary Status: Chronic - Discharge Medications Home Medications: Aspirin [Adult Low Dose Aspirin EC] 81 mg PO DAILY 12/20/15 [History] Atorvastatin [Lipitor] 40 mg PO HS 12/20/15 [History] Ezetimibe [Zetia] 10 mg PO DAILY 12/20/15 [History] Lisinopril [Zestril] 20 mg PO BID 12/20/15 [History] Omeprazole 20 mg PO DAILY 02/23/16 [History] Tamsulosin [Flomax] 0.4 mg PO DAILY 02/23/16 [History] Albuterol Sulfate [Ventolin Hfa] 2 puff IH Q4H PRN 12/17/16 [History] BuPROPion XL (24 HR) [Wellbutrin Xl] 150 mg PO DAILY 12/17/16 [History] Finasteride [Proscar] 5 mg PO DAILY 12/17/16 [History] Metoprolol [Lopressor] 50 mg PO BID 12/17/16 [History] Oxygen 2 l NS AD 12/17/16 [History] Diltiazem CD (24hr) [Cardizem CD] 240 mg PO DAILY 30 Days cap.er.24h 01/02/17 [ Rx] Budesonide/Formoterol 160/4.5 [Symbicort 160/4.5] 2 puff IH BIDR 02/19/17 [ History] Donepezil HCl [Aricept] 5 mg PO HS 03/15/17 [History] Tiotropium [Spiriva] 18 mcg IH DAILY 03/15/17 [History] OxyCODONE Immed Rel [Roxicodone 5 MG] 5 mg PO Q6HR PRN 7 Days #28 tablet [Rx] Apixaban [Eliquis] 5 mg PO BID 09/06/17 [History] Furosemide [Lasix] 40 mg PO DAILY 09/06/17 [History] Allergies/Adverse Reactions: 3 Allergy/AdvReac Type Severity Reaction Status Date / Time No Known Allergies Allergy Verified 09/06/17 13:24 Primary care physician: Francis Chamberlain MD - Patient Status Disposition: Transfer Inpatient Rehab Fac Condition: Good - Discharge Instructions Follow Up With: Francis Chamberlain MD [Primary Care Provider] - 10/01/17 9:00 am Ashley Watkins PAC [Physician Chief Airport Guide] - 09/16/17 9:15 am Jett Woo MD [Partnered Physician] - 10/05/17 10:35 am Ciro Osorio MD [Partnered Physician] - 05/31/18 9:30 am Myles Juarez MD [Partnered Physician] - 10/05/17 2:30 pm Good Penny MD [Partnered Physician] - 01/25/18 9:00 am Additional Instructions: Discharge Instructions: Total Knee Replacement Please call [facility] ([phone]), your Primary Care Physician, or report to the Emergency Room if you have any of the following symptoms: Nausea, vomiting, fever greater that 101.5, swelling, chest pain, shortness of breath, increased pain/redness/drainage/odor for your incision site, numbness/ tingling, or any other concerning symptoms. ACTIVITY:Weight-bearing as tolerated. You may progress off support (crutches or walker) as tolerated. MEDICATIONS: Upon discharge resume your home medications. Take all the medications as prescribed. Take a stool softener if taking narcotic pain medications. Stool softeners are only effective if you drink enough fluids. Drink 6-8 glass of water or fluids a day, unless this is not allowed for another health problem. Despite using stool softeners, if you haven't had a bowel movement in 3 days, please switch to a gentle laxative. Gentle laxatives are sold over the counter. You should have a bowel movement within 24 hours, if not call the office. You will be discharged from the hospital with a prescription for pain medication. You are encouraged to decrease the use of narcotic pain medication as tolerated. Should you require a refill, please call the office. [facility] prescribes narcotic pain medication for only 4-6 weeks after surgery. If you require pain medication beyond this time period, you may be referred to your Primary Care Physician or to the Pain Clinic for further evaluation. Plan ahead for refills on pain medication as many narcotics either need to be picked up at the office or mailed. It is best to call 48-72 hours in advance of needing a prescription refill so you don't run out of medication. To help control the post-operative pain, you may take NSAIDs (Aleve,Advil, Motrin, Ibuprofen, Naprosyn) or Tylenol as prescribed on the bottle in addition to the pain medication. ANTICOAGULATION (blood thinners): Continue your Aspirin, Lovenox or Coumadin as prescribed to help prevent a blood clot in the leg or in the lungs. As long as your incision remains dry and you tolerate the NSAIDs (Aleve, Advil, Motrin, ibuprofen, naprosyn), it is OK to use the NSAIDS while you are taking your anticoagulation medication. Should your incision start to drain, stop the NSAID and contact our office. Common symptoms of blood clot in the legs include: localized pain, swelling, calf tenderness, redness or discoloration of the skin. Blood clot in the lung symptoms include: shortness of breath, rapid pulse, sweating, and chest pain that worsens with deep breathing, coughing up blood, lightheadedness, feelings of anxiety. If you experience any of these symptoms notify your physician immediately, go to the emergency room, or if having trouble breathing, call 911. WOUND CARE: Leave the dressing on for 7 to 10days. You may change the dressing if it becomes saturated greater than 50%. Do not get the dressing wet at anytime. Wash your hands with antibacterial soap, rinse and dry prior to any wound care. If you have sofia the visiting nurse or rehab facility can remove the stapes 10-14 days after surgery and place steri-strips across the wound. Leave the steri-strips in place until they fall off on their won. You may let water from the shower run on top of the steri-strips. If you do not have a visiting nurse or rehab facility, you will need to return to the office at 10-14 days for the sofia to be removed. If you have itching or redness around the dressing call the office. FOLLOW-UP: Please follow up with your surgeon in the orthopedic clinic in 4 weeks from the day of surgery. If you have sofia that need to be removed, you will need to come back to the office in 10-14 days from the day of surgery. - Hospital Course Hospital course: Mr. Moon is a 77 year old male - Time Spent with Patient Total time spent providing and/or coordinating discharge services: <Jett Woo - Last Filed: 09/09/17 09:10> Date of Encounter: 09/09/17 Time of Encounter: 09:10 - Discharge Diagnosis (1) Obesity (BMI 35.0-39.9 without comorbidity) Priority: Secondary Status: Chronic (2) Hypertension Priority: Secondary Status: Chronic Qualifiers: Hypertension type: essential hypertension Qualified Code(s): I10 - Essential (primary) hypertension (3) Diastolic heart failure Priority: Secondary Status: Chronic Qualifiers: Heart failure chronicity: chronic Qualified Code(s): I50.32 - Chronic diastolic (congestive) heart failure (4) Chronic respiratory failure Priority: Secondary Status: Chronic Qualifiers: Respiratory failure complication: unspecified whether with hypoxia or hypercapnia Qualified Code(s): J96.10 - Chronic respiratory failure, unspecified whether with hypoxia or hypercapnia (5) Atrial flutter Status: Acute Qualifiers: Atrial flutter type: unspecified Qualified Code(s): I48.92 - Unspecified atrial flutter (6) Osteoarthritis of right knee Priority: Primary Status: Chronic Qualifiers: Osteoarthritis type: unspecified Qualified Code(s): M17.11 - Unilateral primary osteoarthritis, right knee (7) CAD (coronary artery disease) Priority: Secondary Status: Chronic Qualifiers: Coronary Disease-Associated Artery/Lesion type: unspecified vessel or lesion type [place] vs. transplanted heart: unspecified whether [place] or transplanted heart Associated angina: angina presence unspecified Qualified Code(s): I25.10 - Atherosclerotic heart disease of [place] coronary artery without angina pectoris (8) alf current use of anticoagulant Priority: Secondary Status: Chronic (9) Paroxysmal atrial flutter Priority: Secondary Status: Chronic (10) HTN (hypertension) Priority: Secondary Status: Chronic Qualifiers: Hypertension type: unspecified Qualified Code(s): I10 - Essential (primary ) hypertension (11) COPD (chronic obstructive pulmonary disease) Priority: Secondary Status: Chronic Qualifiers: COPD type: unspecified COPD Qualified Code(s): J44.9 - Chronic obstructive pulmonary disease, unspecified (12) GERD (gastroesophageal reflux disease) Priority: Secondary Status: Chronic Qualifiers: Esophagitis presence: esophagitis presence not specified Qualified Code(s) : K21.9 - Gastro-esophageal reflux disease without esophagitis (13) BPH (benign prostatic hyperplasia) Priority: Secondary Status: Chronic Qualifiers: Lower urinary tract symptom presence: unspecified whether lower urinary tract symptoms present Qualified Code(s): N40.0 - Benign prostatic hyperplasia without lower urinary tract symptoms (14) Diabetes Status: Chronic Qualifiers: Diabetes mellitus type: type 2 Diabetes mellitus complication status: with unspecified complications Diabetes mellitus terminal worker insulin use: without snf use Qualified Code(s): E11.8 - Type 2 diabetes mellitus with unspecified complications (15) History of stroke Priority: Secondary Status: Chronic (16) Status post total right knee replacement Priority: Primary Status: Acute Primary care physician: Francis Chamberlain MD - Patient Status Functional capacity at discharge: uses cane/walker Overall status at discharge: patient is progressing back to baseline - Hospital Course Hospital course: Mr. Moon is a 77 year old male Status post right total knee replacement. The patient had an uneventful postoperative course. They received antibiotics and physical therapy and were discharged in stable condition. There will follow -up in the office in 2 weeks. - Time Spent with Patient Total time spent providing and/or coordinating discharge services:
--- NOTE | 2017-09-05 17:12 | Physician Discharge Referral ---
Home Health/Hosp Referral Info Transfer to: Home Health Attending Provider: Dr. 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 (4) Paroxysmal atrial flutter Priority: Secondary Status: Chronic (5) HTN (hypertension) Priority: Secondary Status: Chronic (6) COPD (chronic obstructive pulmonary disease) Priority: Secondary Status: Chronic (7) GERD (gastroesophageal reflux disease) Priority: Secondary Status: Chronic (8) BPH (benign prostatic hyperplasia) Priority: Secondary Status: Chronic (9) Diabetes Priority: Secondary Status: Chronic (10) History of stroke Priority: Secondary Status: Chronic (11) Status post total right knee replacement Priority: Primary Status: Acute - Respiratory Orders Smoking Cessation: Smoking cessation has been advised. For more information, call the [place] Tobacco Quit Line at 5-994-WZFS-NOW. - Dressing/Wound Care Site: right knee Type of Dressing/Treatments w/Frequency: Opsite placed. Keep dressing intact until first follow up appointment. If > 50% saturated, notify office, remove dressing and place appropriate dressing back in place. Dressing is water resistant, not water-proof. OK to shower, but do not get dressing wet. - Diet/Nutrition Diet/Nutrition Orders: Regular - Activity Activity Orders: Up ad devon, Ambulate, Chair, Walker Activity: List: Total Knee replacement Precautions x 6 weeks Apply cold therapy wrap 3-6x/day for 20 minutes at a time. Encourage ambulation throughout the day and incentive spirometer 10x/hour. Elevate affected extremity above heart as tolerated. Brace: Wear knee immobilizer at night x 2 weeks. - Services Needed Following services are medically necessary services: Nursing, Home Health Aide, Physical Therapy, Occupational Therapy - Transfer Medications Prescriptions: OxyCODONE Immed Rel [Roxicodone 5 MG] 5 mg PO Q6HR PRN 7 Days #28 tablet PRN Reason: Pain Home Medications: Aspirin [Adult Low Dose Aspirin EC] 81 mg PO DAILY 12/20/15 [History] Atorvastatin [Lipitor] 40 mg PO HS 12/20/15 [History] Ezetimibe [Zetia] 10 mg PO DAILY 12/20/15 [History] Lisinopril [Zestril] 20 mg PO BID 12/20/15 [History] Omeprazole 20 mg PO DAILY 02/23/16 [History] Tamsulosin [Flomax] 0.4 mg PO DAILY 02/23/16 [History] Albuterol Sulfate [Ventolin Hfa] 2 puff IH Q4H PRN 12/17/16 [History] Brimonidine Tartrate 1 drop RIGHT EYE BID 12/17/16 [History] BuPROPion XL (24 HR) [Wellbutrin Xl] 150 mg PO DAILY 12/17/16 [History] Finasteride [Proscar] 5 mg PO DAILY 12/17/16 [History] Fluticasone/Vilanterol [Breo Ellipta 200-25 Mcg INH] 1 puff IH DAILY 12/17/16 [ History] Metoprolol [Lopressor] 50 mg PO DAILY 12/17/16 [History] Oxygen 2 l NS AD 12/17/16 [History] Diltiazem CD (24hr) [Cardizem CD] 240 mg PO DAILY 30 Days cap.er.24h 01/02/17 [ Rx] Budesonide/Formoterol 160/4.5 [Symbicort 160/4.5] 2 puff IH BIDR 02/19/17 [ History] Clopidogrel [Plavix] 75 mg PO DAILY 02/19/17 [History] Furosemide [Lasix] 20 mg PO DAILY 02/19/17 [History] Apixaban [Eliquis] 2.5 mg PO BID #60 tablet 02/21/17 [Rx] Donepezil HCl [Aricept] 5 mg PO HS 03/15/17 [History] Tiotropium [Spiriva] 18 mcg IH DAILY 03/15/17 [History] OxyCODONE Immed Rel [Roxicodone 5 MG] 5 mg PO Q6HR PRN 7 Days #28 tablet [Rx] Allergies/Adverse Reactions: 3 Allergy/AdvReac Type Severity Reaction Status Date / Time No Known Allergies Allergy Verified 03/15/17 14:04 Certification: Further, I certify that my clinical findings support that this patient is homebound (i.e. absences from home require considerable and taxing effort and are for medical reasons or faith services or infrequently or short duration when for other reasons) because: Homebound Reason: Post-surgery restriction and or conditions limit ability to leave home Attestation: My signature below is to certify that this patient is under my care and that I, or nurse practitioner, or a physician enrichment assistant working with me, has a face-to- face encounter with this patient.
--- NOTE | 2017-09-05 17:13 | Physician Discharge Referral ---
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 Priority: Secondary Status: Chronic (4) Paroxysmal atrial flutter Priority: Secondary Status: Chronic (5) HTN (hypertension) Priority: Secondary Status: Chronic (6) COPD (chronic obstructive pulmonary disease) Priority: Secondary Status: Chronic (7) GERD (gastroesophageal reflux disease) Priority: Secondary Status: Chronic (8) BPH (benign prostatic hyperplasia) Priority: Secondary Status: Chronic (9) Diabetes Priority: Secondary Status: Chronic (10) History of stroke Priority: Secondary Status: Chronic (11) Status post total right knee replacement Priority: Secondary Status: Acute Expected Duration of Placement: less than 30 days Prognosis: Good Aware of Diagnosis: Patient Aware of Prognosis: Patient - Transfer Medications Prescriptions: OxyCODONE Immed Rel [Roxicodone 5 MG] 5 mg PO Q6HR PRN 7 Days #28 tablet PRN Reason: Pain Home Medications: Aspirin [Adult Low Dose Aspirin EC] 81 mg PO DAILY 12/20/15 [History] Atorvastatin [Lipitor] 40 mg PO HS 12/20/15 [History] Ezetimibe [Zetia] 10 mg PO DAILY 12/20/15 [History] Lisinopril [Zestril] 20 mg PO BID 12/20/15 [History] Omeprazole 20 mg PO DAILY 02/23/16 [History] Tamsulosin [Flomax] 0.4 mg PO DAILY 02/23/16 [History] Albuterol Sulfate [Ventolin Hfa] 2 puff IH Q4H PRN 12/17/16 [History] Brimonidine Tartrate 1 drop RIGHT EYE BID 12/17/16 [History] BuPROPion XL (24 HR) [Wellbutrin Xl] 150 mg PO DAILY 12/17/16 [History] Finasteride [Proscar] 5 mg PO DAILY 12/17/16 [History] Fluticasone/Vilanterol [Breo Ellipta 200-25 Mcg INH] 1 puff IH DAILY 12/17/16 [ History] Metoprolol [Lopressor] 50 mg PO DAILY 12/17/16 [History] Oxygen 2 l NS AD 12/17/16 [History] Diltiazem CD (24hr) [Cardizem CD] 240 mg PO DAILY 30 Days cap.er.24h 01/02/17 [ Rx] Budesonide/Formoterol 160/4.5 [Symbicort 160/4.5] 2 puff IH BIDR 02/19/17 [ History] Clopidogrel [Plavix] 75 mg PO DAILY 02/19/17 [History] Furosemide [Lasix] 20 mg PO DAILY 02/19/17 [History] Apixaban [Eliquis] 2.5 mg PO BID #60 tablet 02/21/17 [Rx] Donepezil HCl [Aricept] 5 mg PO HS 03/15/17 [History] Tiotropium [Spiriva] 18 mcg IH DAILY 03/15/17 [History] OxyCODONE Immed Rel [Roxicodone 5 MG] 5 mg PO Q6HR PRN 7 Days #28 tablet [Rx] Allergies/Adverse Reactions: 3 Allergy/AdvReac Type Severity Reaction Status Date / Time No Known Allergies Allergy Verified 03/15/17 14:04 - Respiratory Orders Smoking Cessation: Smoking cessation has been advised. For more information, call the [place] Tobacco Quit Line at 5-730-EICJ-NOW. - Ancillary Orders May use pressure relief devices daily prn, May go on GINETTE w/family/respon republican w /meds at nurse discretion PRN, May consult with Dentist, Case Managers, Contract Writer PRN - Mobility Orders Chair, Ambulate - Rehabiliation Orders Rehab Potential: Good Rehab Orders: Evaluation for Physical Therapy, Evaluation for Occupational Therapy Other: Total Knee replacement Precautions x 6 weeks Apply cold therapy wrap 3-6x/day for 20 minutes at a time. Encourage ambulation throughout the day and incentive spirometer 10x/hour. Elevate affected extremity above heart as tolerated. Brace: Wear knee immobilizer at night x 2 weeks. - Treatments Skin tear care topically daily PRN per policy List/Other: Opsite placed. Keep dressing intact until first follow up appointment. If > 50% saturated, notify office, remove dressing and place appropriate dressing back in place. Dressing is water resistant, not water-proof. OK to shower, but do not get dressing wet. - Diet Orders Regular CERTIFICATION: I certify that the transfer of the above named patient to an Extended Care Facility is necessary for the continuing treatment of the diagnosis listed. The above information is true and accurate reflection of patient's current condition. Confidential - Redisclosure prohibited without a patient's written consent.
[2017-09-06] MEDS ORDERED: Lidocaine -MPF 1% 2 ML VIAL ID ONE (13:00)
[2017-09-06] MEDS ORDERED: Albuterol 2.5 MG/3 ML NEBULIZER IH ONE (13:00)
[2017-09-06] MEDS ORDERED: CeFAZolin Syr 2,000MG/20 ML 2,000 MG/20 ML SYRINGE IVPB ONE (13:00)
[2017-09-06] MEDS ORDERED: Ringers Solution, Lactated 1,000 ML IVC SCH ×2 (13:00→17:47)
--- NOTE | 2017-09-06 13:28 | Anesthesia Evaluation PreOp ---
Date of Encounter: 09/06/17 Time of Encounter: 13:26 - Past History Planned Operation: right TKA Cardiac History: CHF (diastolic earlier this year), HTN, Hyperlipidemia, Arrhythmia (hx a-flutter with RVR earlier this year), Other (CAD x2 1998) Pulmonary History: Smoker, Pack/yr (55), COPD (home O2) CIGAR BANDER HAND History: CVA (left side weakness 2000), Other (glaucoma) Other Medical History: Renal (BPH), GERD, Other (hx thrombocytopenia) Anesthesia History: No Prior Anesthetic Complications, Past Anesthesia (IM nail right leg) Alcohol Use: none Drug use: none Medications and Allergies Aspirin [Adult Low Dose Aspirin EC] 81 mg PO DAILY 12/20/15 [History] Atorvastatin [Lipitor] 40 mg PO HS 12/20/15 [History] Ezetimibe [Zetia] 10 mg PO DAILY 12/20/15 [History] Lisinopril [Zestril] 20 mg PO BID 12/20/15 [History] Omeprazole 20 mg PO DAILY 02/23/16 [History] Tamsulosin [Flomax] 0.4 mg PO DAILY 02/23/16 [History] Albuterol Sulfate [Ventolin Hfa] 2 puff IH Q4H PRN 12/17/16 [History] BuPROPion XL (24 HR) [Wellbutrin Xl] 150 mg PO DAILY 12/17/16 [History] Finasteride [Proscar] 5 mg PO DAILY 12/17/16 [History] Metoprolol [Lopressor] 50 mg PO DAILY 12/17/16 [History] Oxygen 2 l NS AD 12/17/16 [History] Diltiazem CD (24hr) [Cardizem CD] 240 mg PO DAILY 30 Days cap.er.24h 01/02/17 [ Rx] Budesonide/Formoterol 160/4.5 [Symbicort 160/4.5] 2 puff IH BIDR 02/19/17 [ History] Donepezil HCl [Aricept] 5 mg PO HS 03/15/17 [History] Tiotropium [Spiriva] 18 mcg IH DAILY 03/15/17 [History] OxyCODONE Immed Rel [Roxicodone 5 MG] 5 mg PO Q6HR PRN 7 Days #28 tablet [Rx] Apixaban [Eliquis] 5 mg PO BID 09/06/17 [History] Furosemide [Lasix] 40 mg PO DAILY 09/06/17 [History] 3 Allergy/AdvReac Type Severity Reaction Status Date / Time No Known Allergies Allergy Verified 09/06/17 13:24 - Meds/Allergy Pre-op Review Medications Reviewed: Yes Allergies Reviewed: Yes Beta Blockers on Current Med List: Yes (pt last took about 4 days ago) If Beta Blockers taken, Date/Time (Last Dose taken): will give 25mg metoprolol now Anesthesia Results - Labs Laboratory Tests 08/10/17 08/10/17 15:30 15:30 Hgb 11.9 L Hct 38.7 Plt Count 350 Sodium 140 Potassium 4.1 - Imaging EKG: report reviewed (SINUS RHYTHM) Additional studies: echo 12/11: Impressions: Normal LV systolic function, LVEF 60%. Mild concentric left ventricular hypertrophy. Moderate left ventricular diastolic dysfunction. Normal right ventricular size and function. No significant valvular dysfunction. No evidence of pulmonary hypertension. No evidence of intracardiac shunting with agitated saline contrast. Anesthesia Exam Selected Entries 09/06/17 13:06 Temperature 97.8 F Pulse Rate 90 Respiratory Rate 18 Blood Pressure 174/91 O2 Sat by Pulse Oximetry 97 Weight: 104kg NPO (# of Hours): 8 - HEENT Pupil (Motor): EOMI Mallampati: II Teeth: Edentulous Oral Opening: Greater than 3 - CIGAR BANDER HAND LOC: Oriented CIGAR BANDER HAND Motor: Normal RUE, Normal LUE, Normal RLE, Normal LLE, Normal Face CIGAR BANDER HAND Sensory: Normal: RUE, LUE, RLE, LLE, Face - Cardiac Rhythm: Regular Murmur: None - Pulmonary Breath Sounds: bilateral Clear Respiratory Effort: Symmetrical Anesthesia Assess/Plan ASA Score: 3 Modified Farrukh Scale for Level of Consciousness: Cooperative, oriented, and tranquil Anesthetic Plan: General (with nerve block) Monitoring Plan: Standard Monitors Recovery Plan: PACU (discussed GA and nerve block. Questions answered and agrees to proceed)
--- NOTE | 2017-09-06 13:33 | History & Physical Report ---
Date of Encounter: 09/06/17 Time of Encounter: 13:33 24 Hour HP Update - Instructions Instructions: If the History and Physical is less than 30 days old and was completed prior to A.M. admission and or procedure and has NOT been updated on calendar day of procedure please complete this update prior to performing procedure. - Update Patient reports changes in Medical Condition: No Changes in examination, assessment, or condition: No Changes in Medication: No Preop tests/diagnostics Reviewed: Yes Surgery Remains Indicated: Yes Consent for Planned Operative Procedure(s) Verified: Yes - Pre-Operative Checklist Preoperative Checklist Indicated: No Prophylactic Antibiotic Ordered: Yes Is VTE Prophylaxis Indicated?: Yes
[2017-09-06] MEDS ORDERED: ROPIVACAINE HCL/PF 0.5% 30 ML VIAL ONE (14:39)
[2017-09-06] MEDS ORDERED: Bupivacaine/Clonidine Syringe 1 EACH SYRINGE ONE (14:39)
[2017-09-06] MEDS ORDERED: Ethanol\\Acetic Acid\\Na Ace\\Ben 1,000 ML IRRIG.SOLN IR ONE (15:23)
--- NOTE | 2017-09-06 15:31 | Anesthesia Procedures ---
Date of Encounter: 09/06/17 Time of Encounter: 15:28 Procedures: Anesthesia - Nerve Block Procedure Date: 09/06/17 Time: 15:29 Allergies/Adv Reactions: No Known Allergies Allergy (Verified 09/06/17 13:24) Pre-op Diagnosis: right knee oa Surgical Procedure: right total knee arthroplasty Checklist: Correct Patient Identifier, Correct procedure, History checked Correct side: Right Blood Thinner: No Monitor Applied: EKG, BP, Pulse Oximetry Supplemental Oxygen via Nasal Cannula (L/min): 2 Sedation: Fentanyl (mcg): 100 Indication: Post Op Analgesia (-) Pre-op Neuro Deficits: No Block Type: Femoral (0.5% ropivicaine 30cc), Other (IPACK 20 cc 0.25% bupivicaine) Catheter placed: No Sterile Technique: Yes Ultrasound used: Yes Anatomy identified: Yes Visual spread of Local: Yes Neuro Stimulation: No Blood on Needle Aspiration: No Smooth Injection of Local: Yes Pain with Injection of Local: No Prep: Chlorhexadine Needle: 22 x 50 mm Stimuplex (femoral), 21 x 100 mm Stimuplex Local: 0.25% Bupivicaine w/Clonidine 20 mcg/cc, Ropivacaine Volume (cc): 50 Number of Attempts: 1 Complications: None/effective block
[2017-09-06] MEDS ORDERED: *HR* Propofol 200 MG/20 ML VIAL IVP ONE (16:04)
[2017-09-06] MEDS ORDERED: *HR* FentaNYL (PF) 100 MCG/2 ML VIAL ONE (16:04)
[2017-09-06] MEDS ORDERED: Dexamethasone 4 MG/ML VIAL ONE (16:04)
[2017-09-06] MEDS ORDERED: Lidocaine -MPF 2% 2 ML VIAL ONE (16:04)
[2017-09-06] MEDS ORDERED: EPHEDrine 50 MG/ML VIAL ONE (16:09)
--- NOTE | 2017-09-06 16:19 | Orthopedic Operative Note ---
Date of procedure: 09/06/17 Pre-op diagnosis: Right knee arthritis Post-op diagnosis: same Procedure: Procedure: Right Total knee replacement Estimated blood loss: 200 cc Hardware: Metal and polyethylene replacement. Arthrex Femur: 9 Tibia: 8 PS insert: 9 Patella: 40 Exam Under anesthesia: Full flexion and extension no varus valgus instability Procedural Notes: Grade 4 arthritic changes medial compartment and patellofemoral joint. Operative procedure: The patient was brought to the operating room and placed on the operating room table. After general anesthesia was administered the operative knee was examined. Findings were noted in the exam under anesthesia. The operative extremity was prepped and draped in sterile surgical fashion. The patient received IV antibiotics prior to skin incision. A standard midline incision was made centered over the patella. The incision was made through the skin and subcutaneous tissue. A medial parapatellar tendon approach was performed. Care was taken to preserve tissue along the medial aspect of the patella. And to protect the patella tendon. The deep MCL was released off the medial tibia. The infra patella fat pad was excised. Knee was brought into flexion. Patient noted to have grade 4 arthritic changes medial compartment and patellofemoral joint. The entry hole was made for the intramedullary femoral guide. The guide was seated in 6 degrees of valgus. Anterior cut was made followed by the distal cut. The ACL the PCL the medial and the lateral menisci were excised. The tibia was subluxed forward. The entry hole was made for the intramedullary tibial guide. Guide was seated to resect 2 mm off the more abnormal side. The knee was brought into flexion the distal femur was sized to a 9. The femoral guide was seated, the anterior cut was made followed by the posterior condylar cut, followed by the chamfer cuts. The finishing guide was seated the box cut was made and the lug holes were drilled. The tibia was sized to an 8, the tibial tray was seated and prepared with the large drill followed by the fin cutter. Trial reduction revealed full extension no varus valgus instability with the appropriate 9 PS Natasha. The patella was everted and cut was made at the level of the insertion of the quadriceps and patella tendon. The patella was sized to 40 the guide was seated and the lug holes are drilled. Trial reduction revealed excellent patella tracking. All trial components were removed all bony surfaces were irrigated. The tibia was cemented first followed by the femur. The 9 PS Natasha was seated and the knee was brought into full extension. The patella was cemented and held in place with the patellar holding clamp. After the cement had hardened, the knee sat for 2 minutes with a Betadine saline solution. The knee was closed by the PA. The knee was then irrigated out with 2 L of pulse irrigation. The extensor mechanism was closed with #2 FiberWire suture and #2 PDS suture. The subcutaneous tissue was then irrigated and closed deep with #1 PDS suture superficially with 0 PDS suture and skin was closed with skin sofia. The patient was then placed in a sterile dressing and a postoperative brace extubated and transferred to recovery room in stable condition. Anesthesia: HOMERO Surgeon: Jett Woo Sales Engineer: Ashley Watkins Condition: stable Disposition: PACU
[2017-09-06] MEDS ORDERED: Ondansetron 4 MG/2 ML VIAL IVP PRN ×2 (17:05→17:47)
[2017-09-06] MEDS ORDERED: *HR* Labetalol 20 MG/4 ML SYRINGE IVP PRN (17:05)
[2017-09-06] MEDS ORDERED: *HR* HYDROmorphone (PF) 1 MG/ML SYRINGE IVP PRN ×2 (17:05→17:47)
--- NOTE | 2017-09-06 17:19 | Anesthesia Evaluation Post Op ---
Date of Encounter: 09/06/17 Time of Encounter: 17:25 - Vital Signs Vital Signs: Vital Signs/O2 Sat/Glucose, Most Current Temp Pulse Resp BP Pulse Ox 09/06/17 17:08 69 16 160/90 95 09/06/17 16:58 98.9 F 76 20 152/85 92 09/06/17 15:10 59 16 168/99 95 09/06/17 14:55 57 16 164/97 94 - Lungs Lungs: Clear Ascult./Percussion - Airway Airway: Non-obstructed - Cardiovascular Regular Rate - Mental Status Mental Status: Alert & Oriented, Answers Appropriately - Pain Pain Scale: 1 - Nausea Vomiting Nausea Vomiting: Not Present - Hydration Hydration: Ice chips - Discharge PostOp Status: Transfer Patient to floor
[2017-09-06 17:22] LABS: Hematocrit 36.6 % (37.5-50.1)
[2017-09-06] MEDS ORDERED: Dextrose Gel 15 GM PO PRN ×2 (17:47)
[2017-09-06] MEDS ORDERED: Naloxone 0.4 MG/ML INJ IVP PRN (17:47)
[2017-09-06] MEDS ORDERED: Temazepam 15 MG CAPSULE PO PRN (17:47)
[2017-09-06] MEDS ORDERED: D5% in Water 1,000 ML IVC PRN (17:47)
[2017-09-06] MEDS ORDERED: Sennosides 8.6 MG TABLET PO PRN (17:47)
[2017-09-06] MEDS ORDERED: *HR* Dextrose 50 % in Water (Syg) 50 ML SYRINGE IVP PRN (17:47)
[2017-09-06] MEDS ORDERED: MOM Conc 10 ML UD.LIQ PO PRN (17:47)
[2017-09-06] MEDS ORDERED: NON-FORMULARY MEDICATION 1 EACH EACH (Oxygen [Oxygen] 2 L) NS SCH (17:47)
[2017-09-06] MEDS ORDERED: *HR* OxyCODONE Immed Rel 5 MG TABLET PO PRN (17:47)
[2017-09-06] MEDS ORDERED: CeFAZolin Premix DUPLEX 2,000 MG/50 ML BAG IVPB SCH (17:47)
[2017-09-06] MEDS: Insulin LISPRO 300 UNITS/3 ML VIAL SQ SCH ×2 (19:03→21:03)
[2017-09-06] MEDS ORDERED: Insulin LISPRO 300 UNITS/3 ML VIAL SQ SCH (21:00)
[2017-09-06] MEDS: CeFAZolin Premix DUPLEX 2,000 MG/50 ML BAG IVPB SCH (21:01)
[2017-09-06] MEDS: APIXABAN 5 MG TABLET PO SCH (21:02)
[2017-09-06] MEDS: Lisinopril 20 MG TABLET PO SCH (21:02)
[2017-09-06] MEDS: Budesonide/Formoterol 160/4.5 MDI IH SCH (22:26)
[2017-09-07] MEDS: CeFAZolin Premix DUPLEX 2,000 MG/50 ML BAG IVPB SCH ×2 (05:27→20:56)
--- NOTE | 2017-09-07 06:29 | Orthopedics Progress Note ---
Date of Encounter: 09/07/17 Time of Encounter: 06:29 - Assessment and Plan (1) Obesity (BMI 35.0-39.9 without comorbidity) Current Visit: Yes Status: Chronic (2) Hypertension Current Visit: No Status: Chronic Qualifiers: Hypertension type: essential hypertension Qualified Code(s): I10 - Essential (primary) hypertension (3) Diastolic heart failure Current Visit: No Status: Chronic Qualifiers: Heart failure chronicity: chronic Qualified Code(s): I50.32 - Chronic diastolic (congestive) heart failure (4) Chronic respiratory failure Current Visit: No Status: Chronic Qualifiers: Respiratory failure complication: unspecified whether with hypoxia or hypercapnia Qualified Code(s): J96.10 - Chronic respiratory failure, unspecified whether with hypoxia or hypercapnia (5) Atrial flutter Current Visit: No Status: Acute Qualifiers: Atrial flutter type: unspecified Qualified Code(s): I48.92 - Unspecified atrial flutter (6) Osteoarthritis of right knee Current Visit: No Status: Chronic Qualifiers: Osteoarthritis type: unspecified Qualified Code(s): M17.11 - Unilateral primary osteoarthritis, right knee (7) CAD (coronary artery disease) Current Visit: No Status: Chronic Qualifiers: Coronary Disease-Associated Artery/Lesion type: unspecified vessel or lesion type [place] vs. 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 Current Visit: No Status: Chronic (9) Paroxysmal atrial flutter Current Visit: No Status: Chronic (10) HTN (hypertension) Current Visit: No Status: Chronic Qualifiers: Hypertension type: unspecified Qualified Code(s): I10 - Essential (primary ) hypertension (11) COPD (chronic obstructive pulmonary disease) Current Visit: No Status: Chronic Qualifiers: COPD type: unspecified COPD Qualified Code(s): J44.9 - Chronic obstructive pulmonary disease, unspecified (12) GERD (gastroesophageal reflux disease) Current Visit: No Status: Chronic Qualifiers: Esophagitis presence: esophagitis presence not specified Qualified Code(s) : K21.9 - Gastro-esophageal reflux disease without esophagitis (13) BPH (benign prostatic hyperplasia) Current Visit: No Status: Chronic Qualifiers: Lower urinary tract symptom presence: unspecified whether lower urinary tract symptoms present Qualified Code(s): N40.0 - Benign prostatic hyperplasia without lower urinary tract symptoms (14) Diabetes Current Visit: No Status: Chronic Qualifiers: Diabetes mellitus type: type 2 Diabetes mellitus complication status: with unspecified complications Diabetes mellitus custodial insulin use: without intermediate designer use Qualified Code(s): E11.8 - Type 2 diabetes mellitus with unspecified complications (15) History of stroke Current Visit: No Status: Chronic (16) Status post total right knee replacement Current Visit: No Status: Acute Subjective Interval history: Patient was seen this morning doing well without complaints. Afebrile vital signs stable. Operative extremity: Neurovascularly intact Dressing clean dry and intact Calves nontender Assessment and plan: Continue with postoperative care Hematocrit 36 Objective Vital signs: Vital Signs Temp Pulse Resp BP Pulse Ox 09/07/17 05:08 98.0 F 68 16 155/87 96 09/06/17 23:58 98.1 F 69 14 128/57 94 09/06/17 22:28 18 96 09/06/17 22:10 134/79 09/06/17 21:10 70 16 174/97 94 09/06/17 20:00 68 16 176/99 95 09/06/17 19:29 98.0 F 68 16 152/87 96 09/06/17 19:05 97.9 F 75 16 163/80 97 09/06/17 18:20 97.9 F 68 15 161/81 97 09/06/17 17:50 97.6 F 67 16 150/88 96 09/06/17 17:49 97 09/06/17 17:29 97.1 F L 66 18 152/86 96 09/06/17 17:18 66 16 158/80 95 09/06/17 17:08 69 16 160/90 95 09/06/17 16:58 98.9 F 76 20 152/85 92 09/06/17 15:10 59 16 168/99 95 09/06/17 14:55 57 16 164/97 94 09/06/17 13:18 18 97 09/06/17 13:06 97.8 F 90 18 174/91 97 Intake and Output 09/06/17 09/06/17 09/07/17 15:59 23:59 07:59 Intake Total 920 / 920 50 / 50 Output Total 200 / 200 325 / 325 Balance 720 / 720 -275 / -275 Intake: IV Fluids 20 / 20 50 / 50 Ancef Premix DUPLEX 2,000 mg In 50 / 50 50 ml @ 100 mls/hr IVPB Q8H [facility] Rx#:[id number] Ancef Syringe 2,000 MG/20 ML 2, 20 / 20 000 mg In 20 ml @ 200 mls/hr IVPB PREOP ONE Rx#:[id number] Oral 870 / 870 50 / 50 Output: Urine 0 / 0 325 / 325 Estimated Blood Loss 200 / 200 Other: Weight 104.326 kg Blood Glucose* 104 162 - Labs CBC & BMP: 09/06/17 17:13 Labs: Abnormal lab results Hgb 11.0 g/dL (12.9-16.9) L 09/06/17 17:13 Hct 36.6 % (37.5-50.1) L 09/06/17 17:13 POC Glucose 162 (58-89) H 09/06/17 20:38 - VTE Documentation of Mechanical Device: Venous foot pump, device Consult Discharge Plan - Plan Referrals: Francis Chamberlain MD [Primary Care Provider] -
[2017-09-07 06:58] LABS: Hematocrit 33.6 % (37.5-50.1); Hemoglobin 10.2 g/dL (12.9-16.9)
[2017-09-07 07:08] LABS: BUN/Creatinine Ratio 18 (6-26); Blood Urea Nitrogen 17 mg/dL (8-26); Calcium 8.3 mg/dL (8.6-10.8); Carbon Dioxide 24 mEq/L (19-29); Chloride 107 mEq/L (98-109); Glucose 134 mg/dL (70-99); Osmolality,Calculated 294 (280-300); Potassium 4.1 mEq/L (3.5-4.5); Sodium 140 mEq/L (136-145); eGFR For African Americans > 60 (> 60); eGFR For Non-African Americans > 60 (> 60)
[2017-09-07] MEDS: Budesonide/Formoterol 160/4.5 MDI IH SCH ×2 (08:03→20:03)
[2017-09-07] MEDS: Finasteride 5 MG TABLET PO SCH (08:38)
[2017-09-07] MEDS: Lisinopril 20 MG TABLET PO SCH ×2 (08:38→21:01)
[2017-09-07] MEDS: BuPROPion XL (24 HR) 150 MG TABLET PO SCH (08:39)
[2017-09-07] MEDS: APIXABAN 5 MG TABLET PO SCH ×2 (08:39→21:01)
[2017-09-07] MEDS: Aspirin Enteric Coated 81 MG Tablet PO SCH (08:40)
[2017-09-07] MEDS: Diltiazem CD (24hr) 240 MG CAPSULE PO SCH (08:40)
[2017-09-07] MEDS: Furosemide 40 MG TABLET PO SCH (08:40)
[2017-09-07] MEDS: Insulin LISPRO 300 UNITS/3 ML VIAL SQ SCH ×4 (08:41→21:01)
[2017-09-07] MEDS: (Ezetimibe [Zetia] 10 MG) PO SCH (08:48)
[2017-09-07] MEDS: Tiotropium 18 MCG inhalation IH SCH (09:38)
--- NOTE | 2017-09-07 11:31 | Event Note ---
Date of Encounter: 09/07/17 Time of Encounter: 11:30 PCR- POD#1 Right TKR Woo 09/06/17 PCR - Patient seen at bedside. Family at bedside. 09/07 - H/H 10.2/33.6 Pain control: Adequate Participating in PT. All questions and concerns addressed. Educated on use of incentive spirometer, ambulation, and hydration. Patient educated on post-operative restrictions and care. Addressed: see above. D/C plan: [place]
[2017-09-07] MEDS: *HR* OxyCODONE Immed Rel 5 MG TABLET PO PRN (12:47)
[2017-09-08 07:03] LABS: Hematocrit 32.1 % (37.5-50.1); Hemoglobin 9.7 g/dL (12.9-16.9)
[2017-09-08 07:18] LABS: BUN/Creatinine Ratio 16 (6-26); Blood Urea Nitrogen 16 mg/dL (8-26); Calcium 8.6 mg/dL (8.6-10.8); Carbon Dioxide 26 mEq/L (19-29); Chloride 103 mEq/L (98-109); Glucose 179 mg/dL (70-99); Osmolality,Calculated 290 (280-300); Potassium 4.3 mEq/L (3.5-4.5); Sodium 137 mEq/L (136-145); eGFR For African Americans > 60 (> 60); eGFR For Non-African Americans > 60 (> 60)
[2017-09-08] MEDS: Budesonide/Formoterol 160/4.5 MDI IH SCH ×2 (08:21→20:00)
[2017-09-08] MEDS: Insulin LISPRO 300 UNITS/3 ML VIAL SQ SCH ×4 (08:22→20:22)
[2017-09-08] MEDS: Tiotropium 18 MCG inhalation IH SCH (08:22)
[2017-09-08] MEDS: Lisinopril 20 MG TABLET PO SCH ×2 (08:23→20:22)
[2017-09-08] MEDS: Aspirin Enteric Coated 81 MG Tablet PO SCH (08:24)
[2017-09-08] MEDS: Diltiazem CD (24hr) 240 MG CAPSULE PO SCH (08:24)
[2017-09-08] MEDS: APIXABAN 5 MG TABLET PO SCH ×2 (08:24→20:22)
[2017-09-08] MEDS: Furosemide 40 MG TABLET PO SCH (08:24)
[2017-09-08] MEDS: BuPROPion XL (24 HR) 150 MG TABLET PO SCH (08:24)
[2017-09-08] MEDS: (Ezetimibe [Zetia] 10 MG) PO SCH (08:25)
[2017-09-08] MEDS: Finasteride 5 MG TABLET PO SCH (08:27)
--- NOTE | 2017-09-08 13:05 | Event Note ---
Date of Encounter: 09/08/17 Time of Encounter: 12:05 PCR- POD#2 Right TKR Woo 09/06/17 PCR - Patient seen at bedside. Family at bedside. 09/07 - H/H 10.2/33.6 09/08 - H/H 9.7/32.1 Pain control: Adequate Participating in PT. All questions and concerns addressed. Educated on use of incentive spirometer, ambulation, and hydration. Patient educated on post-operative restrictions and care. Addressed: see above. D/C plan: Kassidy, plan for DC tomorrow
[2017-09-08] MEDS: *HR* OxyCODONE Immed Rel 5 MG TABLET PO PRN (20:22)
[2017-09-09] MEDS ORDERED: FLUARIX QUAD 2017-18 36MOS UP/PF 0.5 ML SYRINGE IM ONE (07:58)
[2017-09-09] MEDS: Tiotropium 18 MCG inhalation IH SCH (08:21)
[2017-09-09] MEDS: Budesonide/Formoterol 160/4.5 MDI IH SCH (08:21)
[2017-09-09] MEDS: Insulin LISPRO 300 UNITS/3 ML VIAL SQ SCH (08:35)
[2017-09-09] MEDS: BuPROPion XL (24 HR) 150 MG TABLET PO SCH (08:35)
[2017-09-09] MEDS: Aspirin Enteric Coated 81 MG Tablet PO SCH (08:36)
[2017-09-09] MEDS: Furosemide 40 MG TABLET PO SCH (08:36)
[2017-09-09] MEDS: APIXABAN 5 MG TABLET PO SCH (08:36)
[2017-09-09] MEDS: Diltiazem CD (24hr) 240 MG CAPSULE PO SCH (08:36)
[2017-09-09] MEDS: Finasteride 5 MG TABLET PO SCH (08:36)
[2017-09-09] MEDS: Lisinopril 20 MG TABLET PO SCH (08:36)
[2017-09-09] MEDS: (Ezetimibe [Zetia] 10 MG) PO SCH (08:37)
--- NOTE | 2017-09-09 09:09 | Orthopedics Progress Note ---
Date of Encounter: 09/09/17 Time of Encounter: 09:09 - Assessment and Plan (1) Obesity (BMI 35.0-39.9 without comorbidity) Current Visit: Yes Status: Chronic (2) Hypertension Current Visit: No Status: Chronic Qualifiers: Hypertension type: essential hypertension Qualified Code(s): I10 - Essential (primary) hypertension (3) Diastolic heart failure Current Visit: No Status: Chronic Qualifiers: Heart failure chronicity: chronic Qualified Code(s): I50.32 - Chronic diastolic (congestive) heart failure (4) Chronic respiratory failure Current Visit: No Status: Chronic Qualifiers: Respiratory failure complication: unspecified whether with hypoxia or hypercapnia Qualified Code(s): J96.10 - Chronic respiratory failure, unspecified whether with hypoxia or hypercapnia (5) Atrial flutter Current Visit: No Status: Acute Qualifiers: Atrial flutter type: unspecified Qualified Code(s): I48.92 - Unspecified atrial flutter (6) Osteoarthritis of right knee Current Visit: No Status: Chronic Qualifiers: Osteoarthritis type: unspecified Qualified Code(s): M17.11 - Unilateral primary osteoarthritis, right knee (7) CAD (coronary artery disease) Current Visit: No Status: Chronic Qualifiers: Coronary Disease-Associated Artery/Lesion type: unspecified vessel or lesion type [place] vs. 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 Current Visit: No Status: Chronic (9) Paroxysmal atrial flutter Current Visit: No Status: Chronic (10) HTN (hypertension) Current Visit: No Status: Chronic Qualifiers: Hypertension type: unspecified Qualified Code(s): I10 - Essential (primary ) hypertension (11) COPD (chronic obstructive pulmonary disease) Current Visit: No Status: Chronic Qualifiers: COPD type: unspecified COPD Qualified Code(s): J44.9 - Chronic obstructive pulmonary disease, unspecified (12) GERD (gastroesophageal reflux disease) Current Visit: No Status: Chronic Qualifiers: Esophagitis presence: esophagitis presence not specified Qualified Code(s) : K21.9 - Gastro-esophageal reflux disease without esophagitis (13) BPH (benign prostatic hyperplasia) Current Visit: No Status: Chronic Qualifiers: Lower urinary tract symptom presence: unspecified whether lower urinary tract symptoms present Qualified Code(s): N40.0 - Benign prostatic hyperplasia without lower urinary tract symptoms (14) Diabetes Current Visit: No Status: Chronic Qualifiers: Diabetes mellitus type: type 2 Diabetes mellitus complication status: with unspecified complications Diabetes mellitus meterman insulin use: without meterman use Qualified Code(s): E11.8 - Type 2 diabetes mellitus with unspecified complications (15) History of stroke Current Visit: No Status: Chronic (16) Status post total right knee replacement Current Visit: No Status: Acute Subjective Interval history: Patient was seen this morning doing well without complaints. Afebrile vital signs stable. Operative extremity: Neurovascularly intact Dressing clean dry and intact Calves nontender Assessment and plan: Continue with postoperative care Hematocrit 32 discharged today Objective Vital signs: Vital Signs Temp Pulse Resp BP Pulse Ox 09/09/17 08:21 16 94 09/09/17 06:53 98.4 F 67 16 144/79 94 09/09/17 00:57 98.6 F 61 16 147/72 92 09/08/17 20:00 16 91 09/08/17 15:42 98.8 F 61 16 137/67 92 09/08/17 11:19 98.9 F 59 17 147/71 94 Intake and Output 09/08/17 09/09/17 09/09/17 23:59 07:59 15:59 Intake Total 60 / 60 0 / 0 Output Total 250 / 250 600 / 600 Balance -190 / -190 0 / 0 -600 / -600 Intake: Oral 60 / 60 0 / 0 Output: Urine 250 / 250 600 / 600 Other: Blood Glucose* 166 166 - Labs CBC & BMP: 09/08/17 06:38 09/08/17 06:38 Labs: Abnormal lab results Hgb 9.7 g/dL (12.9-16.9) L 09/08/17 06:38 Hct 32.1 % (37.5-50.1) L 09/08/17 06:38 Glucose 179 mg/dL (70-99) H 09/08/17 06:38 POC Glucose 166 (58-89) H 09/09/17 08:05 - VTE Documentation of Mechanical Device: Venous foot pump, device Consult Discharge Plan - Plan Additional Instructions: Discharge Instructions: Total Knee Replacement Please call [facility] ([phone]), your Primary Care Physician, or report to the Emergency Room if you have any of the following symptoms: Nausea, vomiting, fever greater that 101.5, swelling, chest pain, shortness of breath, increased pain/redness/drainage/odor for your incision site, numbness/ tingling, or any other concerning symptoms. ACTIVITY:Weight-bearing as tolerated. You may progress off support (crutches or walker) as tolerated. MEDICATIONS: Upon discharge resume your home medications. Take all the medications as prescribed. Take a stool softener if taking narcotic pain medications. Stool softeners are only effective if you drink enough fluids. Drink 6-8 glass of water or fluids a day, unless this is not allowed for another health problem. Despite using stool softeners, if you haven't had a bowel movement in 3 days, please switch to a gentle laxative. Gentle laxatives are sold over the counter. You should have a bowel movement within 24 hours, if not call the office. You will be discharged from the hospital with a prescription for pain medication. You are encouraged to decrease the use of narcotic pain medication as tolerated. Should you require a refill, please call the office. [facility] prescribes narcotic pain medication for only 4-6 weeks after surgery. If you require pain medication beyond this time period, you may be referred to your Primary Care Physician or to the Pain Clinic for further evaluation. Plan ahead for refills on pain medication as many narcotics either need to be picked up at the office or mailed. It is best to call 48-72 hours in advance of needing a prescription refill so you don't run out of medication. To help control the post-operative pain, you may take NSAIDs (Aleve,Advil, Motrin, Ibuprofen, Naprosyn) or Tylenol as prescribed on the bottle in addition to the pain medication. ANTICOAGULATION (blood thinners): Continue your Aspirin, Lovenox or Coumadin as prescribed to help prevent a blood clot in the leg or in the lungs. As long as your incision remains dry and you tolerate the NSAIDs (Aleve, Advil, Motrin, ibuprofen, naprosyn), it is OK to use the NSAIDS while you are taking your anticoagulation medication. Should your incision start to drain, stop the NSAID and contact our office. Common symptoms of blood clot in the legs include: localized pain, swelling, calf tenderness, redness or discoloration of the skin. Blood clot in the lung symptoms include: shortness of breath, rapid pulse, sweating, and chest pain that worsens with deep breathing, coughing up blood, lightheadedness, feelings of anxiety. If you experience any of these symptoms notify your physician immediately, go to the emergency room, or if having trouble breathing, call 911. WOUND CARE: Leave the dressing on for 7 to 10days. You may change the dressing if it becomes saturated greater than 50%. Do not get the dressing wet at anytime. Wash your hands with antibacterial soap, rinse and dry prior to any wound care. If you have sofia the visiting nurse or rehab facility can remove the stapes 10-14 days after surgery and place steri-strips across the wound. Leave the steri-strips in place until they fall off on their won. You may let water from the shower run on top of the steri-strips. If you do not have a visiting nurse or rehab facility, you will need to return to the office at 10-14 days for the sofia to be removed. If you have itching or redness around the dressing call the office. FOLLOW-UP: Please follow up with your surgeon in the orthopedic clinic in 4 weeks from the day of surgery. If you have sofia that need to be removed, you will need to come back to the office in 10-14 days from the day of surgery. Referrals: Francis Chamberlain MD [Primary Care Provider] - 10/01/17 9:00 am Ashley Watkins PAC [Physician Satellite Tv Technician] - 09/16/17 9:15 am Jett Woo MD [Partnered Physician] - 10/05/17 10:35 am Ciro Osorio MD [Partnered Physician] - 05/31/18 9:30 am Myles Juarez MD [Partnered Physician] - 10/05/17 2:30 pm Good Penny MD [Partnered Physician] - 01/25/18 9:00 am
[2017-09-09 11:10] VITALS: BP 138/76
== END 2017-09-09 11:55 | DRG 470 ==
LOC: SAMDAY 12:32 → 3NENU 12:33
PROVIDERS: ADMIT Orthopaedic Surgery; ATTEND Orthopaedic Surgery

== ENCOUNTER 2019-08-28 06:15 | Observation (INO) ==
[2019-08-28] MEDS: 0.9 % Sodium Chloride 1,000 ML IVC SCH (07:00)
[2019-08-28] MEDS ORDERED: *HR* Heparin 10,000 UNIT/10 ML VIAL ONE (07:10)
[2019-08-28] MEDS ORDERED: 0.9 % Sodium Chloride 1,000 ML ONE (07:10)
[2019-08-28] MEDS ORDERED: Heparin 1,000 UNITS/500 mL 500 ML ONE (07:10)
[2019-08-28] MEDS ORDERED: ISOVUE-370 200 ML INFUS..BTL ONE (07:10)
[2019-08-28] MEDS ORDERED: Nitroglycerin 1,000 MCG/10 ML VIAL IV ONE (07:10)
[2019-08-28] MEDS ORDERED: *HR* Midazolam HCl 2 MG/2 ML VIAL ONE (07:53)
[2019-08-28] MEDS ORDERED: *HR* FentaNYL (PF) 100 MCG/2 ML VIAL ONE (07:53)
[2019-08-28] MEDS ORDERED: *HR* Metoprolol 5 MG/5 ML VIAL IVP ONE (08:11)
[2019-08-28] MEDS ORDERED: Tirofiban 12.5 MG/250ML 12.5 MG/250 ML BAG ONE (08:28)
[2019-08-28] MEDS ORDERED: *HR* Labetalol 100 MG/20 ML MDV ONE (08:49)
[2019-08-28] MEDS ORDERED: Nitroglycerin 0.4 MG TAB.SUBL SL PRN (09:03)
[2019-08-28] MEDS ORDERED: Tirofiban 12.5 MG/250ML 12.5 MG/250 ML BAG IVC SCH (09:15)
[2019-08-28] MEDS ORDERED: NON-FORMULARY MEDICATION 1 EACH EACH (Oxygen 2 L) NS SCH (09:15)
[2019-08-28] MEDS: Diltiazem CD (24hr) 240 MG CAPSULE PO SCH (10:34)
[2019-08-28] MEDS: Finasteride 5 MG TABLET PO SCH (10:35)
[2019-08-28] MEDS: *HR* Digoxin 0.125 MG TABLET PO SCH (10:35)
[2019-08-28] MEDS: BuPROPion XL (24 HR) 150 MG TABLET PO SCH (10:35)
[2019-08-28] MEDS: Lisinopril 20 MG TABLET PO SCH ×2 (10:36→19:33)
[2019-08-28] MEDS ORDERED: Morphine Sulfate 2 MG/ML SYRINGE IVP ONE ×2 (12:01→14:47)
[2019-08-28] MEDS: Furosemide 40 MG TABLET PO SCH (17:34)
[2019-08-28] MEDS ORDERED: Lisinopril 20 MG TABLET PO SCH (21:00)
[2019-08-28] MEDS: Insulin LISPRO 300 UNITS/3 ML VIAL SQ SCH (21:11)
[2019-08-29] MEDS: 0.9 % Sodium Chloride 1,000 ML IVC SCH (02:46)
[2019-08-29 06:30] LABS: Hematocrit 34.4 % (37.5-50.1)
[2019-08-29 06:36] LABS: Hemoglobin 11.3 g/dL (12.9-16.9)
[2019-08-29 06:50] LABS: BUN/Creatinine Ratio 12 (6-26); Blood Urea Nitrogen 13 mg/dL (8-23); eGFR For African Americans > 60 (> 60); eGFR For Non-African Americans > 60 (> 60)
[2019-08-29] MEDS: *HR* Digoxin 0.125 MG TABLET PO SCH (08:25)
[2019-08-29] MEDS: Lisinopril 20 MG TABLET PO SCH ×2 (08:25→20:11)
[2019-08-29] MEDS: hydroCHLOROthiazide 25 MG TABLET PO SCH (08:25)
[2019-08-29] MEDS: Finasteride 5 MG TABLET PO SCH (08:25)
[2019-08-29] MEDS: Aspirin 81 MG TAB.CHEW PO SCH (08:25)
[2019-08-29] MEDS: Diltiazem CD (24hr) 240 MG CAPSULE PO SCH (08:25)
[2019-08-29] MEDS: BuPROPion XL (24 HR) 150 MG TABLET PO SCH (08:25)
[2019-08-29] MEDS: Insulin LISPRO 300 UNITS/3 ML VIAL SQ SCH ×4 (08:26→20:11)
[2019-08-29] MEDS ORDERED: Diltiazem CD (24hr) 240 MG CAPSULE PO SCH (09:00)
[2019-08-29] MEDS ORDERED: BuPROPion XL (24 HR) 150 MG TABLET PO SCH (09:00)
[2019-08-29] MEDS ORDERED: Finasteride 5 MG TABLET PO SCH (09:00)
[2019-08-29] MEDS ORDERED: NON-FORMULARY MEDICATION 1 EACH EACH (Ezetimibe [Zetia] 10 MG) PO SCH (09:00)
[2019-08-29 10:36] LABS: BUN/Creatinine Ratio 11 (6-26); Blood Urea Nitrogen 12 mg/dL (8-23); Calcium 8.1 mg/dL (8.6-10.3); Carbon Dioxide 25 mEq/L (23-29); Chloride 104 mEq/L (98-107); Glucose 284 mg/dL (70-105); Magnesium 1.9 mg/dL (1.6-2.6); Osmolality,Calculated 290 (280-300); Potassium 3.7 mEq/L (3.5-5.1); Sodium 135 mEq/L (136-145); eGFR For African Americans > 60 (> 60); eGFR For Non-African Americans > 60 (> 60)
[2019-08-29] MEDS: Apixaban 5 MG TABLET PO SCH ×2 (11:33→20:10)
[2019-08-29 11:36] LABS: Thyroid Stimulating Hormone 1.424 mcIU/mL (0.340-5.600)
[2019-08-29] MEDS: Furosemide 40 MG TABLET PO SCH (18:37)
[2019-08-30] MEDS: Aspirin 81 MG TAB.CHEW PO SCH (07:57)
[2019-08-30] MEDS: Apixaban 5 MG TABLET PO SCH (07:57)
[2019-08-30] MEDS: Finasteride 5 MG TABLET PO SCH (07:57)
[2019-08-30] MEDS: Lisinopril 20 MG TABLET PO SCH (07:57)
[2019-08-30] MEDS: BuPROPion XL (24 HR) 150 MG TABLET PO SCH (07:57)
[2019-08-30] MEDS: hydroCHLOROthiazide 25 MG TABLET PO SCH (07:57)
[2019-08-30] MEDS: Insulin LISPRO 300 UNITS/3 ML VIAL SQ SCH ×2 (07:58→12:21)
[2019-08-30] MEDS ORDERED: Diltiazem CD (24hr) 120 MG CAPSULE PO SCH (09:00)
[2019-08-30] MEDS: 0.9 % Sodium Chloride 1,000 ML IVC SCH ×2 (12:21)
[2019-08-30 15:29] VITALS: BP 120/65
== END 2019-08-30 16:20 | disposition home or self-care (01) ==
LOC: 3BNU 06:15 → INVDIALAB 06:15 → 3BNU 11:47
PROVIDERS: ADMIT Internal Medicine Cardiovascular Disease; ATTEND Internal Medicine Cardiovascular Disease

== ENCOUNTER 2019-11-30 19:34 | Observation (INO) ==
[2019-11-30 20:42] LABS: Hematocrit 35.4 % (37.5-50.1); Mean Corpuscular HGB Conc 31.1 g/dL (31.6-35.5); Mean Corpuscular Hemoglobin 24.5 pg (28.0-33.3); Mean Corpuscular Volume 78.8 fL (83.0-100.0); Mean Platelet Volume 10.1 fL (9.4-12.4); Platelet Count 253 K/mcL (140-400); Red Blood Count 4.49 M/mcL (4.19-5.50); Red Cell Distribution Width 16.7 % (11.5-14.5); White Blood Count 11.8 K/mcL (4.3-11.1)
[2019-11-30 20:58] LABS: BUN/Creatinine Ratio 14 (6-26); Blood Urea Nitrogen 14 mg/dL (8-23); Calcium 8.5 mg/dL (8.6-10.3); Carbon Dioxide 23 mEq/L (23-29); Chloride 108 mEq/L (98-107); Glucose 166 mg/dL (70-105); Osmolality,Calculated 284 (280-300); Potassium 3.7 mEq/L (3.5-5.1); Sodium 135 mEq/L (136-145); Troponin I 0.24 ng/mL (< 0.04); eGFR For African Americans > 60 (> 60); eGFR For Non-African Americans > 60 (> 60)
[2019-12-01] MEDS ORDERED: Naloxone 0.4 MG/ML INJ IVP PRN (00:03)
[2019-12-01] MEDS ORDERED: 0.9 % Sodium Chloride 1,000 ML IVC SCH (00:15)
[2019-12-01] MEDS ORDERED: Aspirin Enteric Coated 325 MG Tablet PO ONE (00:23)
[2019-12-01 01:07] LABS: INR 1.6; Prothrombin Time 18.7 Seconds (9.4-12.1)
[2019-12-01 01:12] LABS: Basophils % 0.2 %; Eosinophils # 0.1 K/mcL (0.0-0.6); Eosinophils % 1.2 %; Hemoglobin 11.2 g/dL (12.9-16.9); Immature Granulocytes % 0.2 % (0-4); Lymphocytes # 2.3 K/mcL (0.6-4.6); Lymphocytes % 23.9 %; Mean Corpuscular HGB Conc 30.3 g/dL (31.6-35.5); Mean Corpuscular Hemoglobin 24.1 pg (28.0-33.3); Mean Corpuscular Volume 79.6 fL (83.0-100.0); Mean Platelet Volume 10.4 fL (9.4-12.4); Monocytes # 1.3 K/mcL (0.0-1.3); Monocytes % 13.2 %; Neutrophils # 5.9 K/mcL (1.6-8.9); Platelet Count 263 K/mcL (140-400); Red Blood Count 4.65 M/mcL (4.19-5.50); Red Cell Distribution Width 16.8 % (11.5-14.5); Segmented Neutrophils % 61.3 %; White Blood Count 9.7 K/mcL (4.3-11.1)
[2019-12-01 01:50] LABS: Alanine Aminotransferase 28 Units/L (7-52); Albumin 3.5 g/dL (3.5-5.7); Albumin/Globulin Ratio 1.4 (1.1-2.2); Alkaline Phosphatase 77 Units/L (34-104); Aspartate Amino Transferase 22 Units/L (13-39); BUN/Creatinine Ratio 15 (6-26); Bilirubin,Total 0.8 mg/dL (0.3-1.0); Blood Urea Nitrogen 15 mg/dL (8-23); Calcium 8.7 mg/dL (8.6-10.3); Carbon Dioxide 23 mEq/L (23-29); Chloride 109 mEq/L (98-107); Globulin 2.5 g/dL (2.4-3.5); Glucose 131 mg/dL (70-105); Osmolality,Calculated 289 (280-300); Phosphorous 3.4 mg/dL (2.7-4.5); Potassium 3.7 mEq/L (3.5-5.1); Sodium 138 mEq/L (136-145); eGFR For African Americans > 60 (> 60); eGFR For Non-African Americans > 60 (> 60)
[2019-12-01] MEDS ORDERED: *HR* Dextrose 50 % in Water (Syg) 50 ML SYRINGE IVP PRN (08:04)
[2019-12-01] MEDS ORDERED: D5% in Water 1,000 ML IVC PRN (08:04)
[2019-12-01] MEDS ORDERED: Dextrose Gel 15 GM/37.5 ML TUBE PO PRN ×2 (08:04)
[2019-12-01] MEDS ORDERED: Nitroglycerin 0.4 MG TAB.SUBL SL PRN (08:06)
[2019-12-01] MEDS ORDERED: *HR* Labetalol 20 MG/4 ML SYRINGE IVP PRN ×2 (08:08→10:54)
[2019-12-01] MEDS: Finasteride 5 MG TABLET PO SCH (08:52)
[2019-12-01] MEDS: BuPROPion XL (24 HR) 150 MG TABLET PO SCH (08:52)
[2019-12-01] MEDS: Apixaban 5 MG TABLET PO SCH ×2 (08:52→21:13)
[2019-12-01] MEDS ORDERED: DilTIAZem CD (24hr) 120 MG CAP.ER.24H PO SCH (09:00)
[2019-12-01] MEDS ORDERED: Insulin LISPRO 300 UNITS/3 ML VIAL SQ SCH ×2 (12:00→21:00)
[2019-12-01 12:26] LABS: Bilirubin,Urine Small (Negative); Blood,Urine Negative (Negative); Clarity,Urine Clear (Clear); Color,Urine Dark Yellow (Yellow); Glucose,Urine (UA) Normal (Normal); Ketones,Urine Trace mg/dL (Negative); Leukocyte Esterase,Urine Negative (Negative); Nitrite,Urine Negative (Negative); Protein,Urine 100 mg/dL (Neg-Trace); Specific Gravity,Urine > 1.030 (1.010-1.025); Urobilinogen,Urine Normal (Normal)
[2019-12-01 12:30] LABS: Bacteria,Urine None Seen per hpf (None-Few); Hyaline Casts,Urine Few per lpf (None-Few); RBC,Urine 0-3 per hpf (0-3); Squamous Epithelial Cell,Urine Many per lpf (None-Few)
[2019-12-01] MEDS: Insulin LISPRO 300 UNITS/3 ML VIAL SQ SCH ×2 (12:32→17:36)
[2019-12-01] MEDS: Furosemide 40 MG/4 ML VIAL IVP SCH ×2 (13:24→21:14)
[2019-12-01] MEDS: lisinopriL 10 MG TABLET PO SCH (21:13)
[2019-12-02 04:53] LABS: Magnesium 1.9 mg/dL (1.6-2.6); Potassium 3.4 mEq/L (3.5-5.1)
[2019-12-02] MEDS ORDERED: DilTIAZem CD (24hr) 120 MG CAP.ER.24H PO SCH (06:30)
[2019-12-02] MEDS: BuPROPion XL (24 HR) 150 MG TABLET PO SCH (07:42)
[2019-12-02] MEDS: Finasteride 5 MG TABLET PO SCH (07:42)
[2019-12-02] MEDS: lisinopriL 10 MG TABLET PO SCH (07:43)
[2019-12-02] MEDS: Apixaban 5 MG TABLET PO SCH (07:43)
[2019-12-02] MEDS: Furosemide 40 MG/4 ML VIAL IVP SCH (07:43)
[2019-12-02] MEDS: Insulin LISPRO 300 UNITS/3 ML VIAL SQ SCH ×2 (07:46→12:44)
[2019-12-02] MEDS ORDERED: DilTIAZem 50 MG in 0.9 % Sodium Chloride 40 ML IVC SCH (10:30)
[2019-12-02 16:03] VITALS: BP 106/72
[2019-12-03] MEDS ORDERED: lisinopriL 20 MG TABLET PO SCH (09:00)
== END 2019-12-02 16:57 | disposition home or self-care (01) ==
LOC: EMEROOARM 19:34 → 2NENU 19:34 → SUATTDRO 22:47 → 2NENU 23:06
PROVIDERS: ADMIT Family Medicine; ATTEND Internal Medicine

== ENCOUNTER 2020-09-25 20:09 | Observation (INO) ==
[2020-09-25] MEDS ORDERED: Naloxone 0.4 MG/ML INJ IVP PRN (22:35)
[2020-09-26 01:58] LABS: Basophils % 0.2 %; Eosinophils # 0.3 K/mcL (0.0-0.6); Eosinophils % 3.4 %; Hematocrit 32.8 % (37.5-50.1); Hemoglobin 9.8 g/dL (12.9-16.9); Immature Granulocytes % 0.3 % (0-4); Lymphocytes # 2.4 K/mcL (0.6-4.6); Lymphocytes % 24.7 %; Mean Corpuscular HGB Conc 29.9 g/dL (31.6-35.5); Mean Corpuscular Hemoglobin 21.5 pg (28.0-33.3); Mean Corpuscular Volume 71.9 fL (83.0-100.0); Mean Platelet Volume 9.4 fL (9.4-12.4); Monocytes % 10.7 %; Neutrophils # 5.8 K/mcL (1.6-8.9); Platelet Count 139 K/mcL (140-400); Red Blood Count 4.56 M/mcL (4.19-5.50); Red Cell Distribution Width 21.3 % (11.5-14.5); Segmented Neutrophils % 60.7 %; White Blood Count 9.5 K/mcL (4.3-11.1)
[2020-09-26 02:00] LABS: INR 1.2; Prothrombin Time 14.1 Seconds (9.4-12.1)
[2020-09-26 02:02] LABS: Activated Partial Thrombo Time 39.7 Seconds (26.0-36.0)
[2020-09-26 02:14] LABS: Albumin 3.1 g/dL (3.5-5.7); Albumin/Globulin Ratio 1.2 (1.1-2.2); Bilirubin,Total 0.4 mg/dL (0.3-1.0); Calcium 8.7 mg/dL (8.6-10.3); Globulin 2.6 g/dL (2.4-3.5); Potassium 3.8 mEq/L (3.5-5.1); Total Protein 5.7 g/dL (6.4-8.9)
[2020-09-26] MEDS ORDERED: DilTIAZem 50 MG/50 ML IV.SOLN IVC SCH (03:15)
[2020-09-26] MEDS ORDERED: Nitroglycerin 0.4 MG TAB.SUBL SL PRN (03:15)
[2020-09-26] MEDS ORDERED: (Ezetimibe [Zetia] 10 MG) PO SCH (09:00)
[2020-09-26] MEDS ORDERED: lisinopriL 20 MG TABLET PO SCH (09:00)
[2020-09-26] MEDS: Apixaban 5 MG TABLET PO SCH ×2 (09:18→20:40)
[2020-09-26] MEDS: Finasteride 5 MG TABLET PO SCH (09:18)
[2020-09-26] MEDS: BuPROPion XL (24 HR) 150 MG TABLET PO SCH (13:22)
[2020-09-26] MEDS: Metoprolol 100 MG TABLET PO SCH ×2 (13:22→20:40)
[2020-09-26] MEDS: DilTIAZem CD (24hr) 120 MG CAP.ER.24H PO SCH (13:22)
[2020-09-26] MEDS ORDERED: Melatonin 3 MG TABLET PO ONE (23:43)
[2020-09-27] MEDS ORDERED: lisinopriL 20 MG TABLET PO SCH (09:00)
[2020-09-27] MEDS: BuPROPion XL (24 HR) 150 MG TABLET PO SCH (09:26)
[2020-09-27] MEDS: Apixaban 5 MG TABLET PO SCH (09:26)
[2020-09-27] MEDS: DilTIAZem CD (24hr) 120 MG CAP.ER.24H PO SCH (09:27)
[2020-09-27] MEDS: Finasteride 5 MG TABLET PO SCH (09:27)
[2020-09-27] MEDS: Metoprolol 100 MG TABLET PO SCH (09:27)
[2020-09-27 11:15] VITALS: BP 125/66
== END 2020-09-27 15:29 | disposition home health service (06) ==
LOC: 2ANU → SUATTDRO 21:47
PROVIDERS: ADMIT Internal Medicine; ATTEND Family Medicine

== ENCOUNTER 2020-11-26 16:06 | Observation (INO) ==
[2020-11-26] MEDS ORDERED: Ipratropium/Albuterol Neb 3 ML IH ONE (16:43)
[2020-11-26] MEDS ORDERED: Dexamethasone 4 MG/ML VIAL IVP ONE (16:44)
[2020-11-26 17:11] LABS: Red Cell Distribution Width 18.7 % (11.5-14.5); Segmented Neutrophils % 64.2 %
[2020-11-26 17:13] LABS: Basophils % 0.2 %; Eosinophils # 0.2 K/mcL (0.0-0.6); Eosinophils % 2.6 %; Hematocrit 31.1 % (37.5-50.1); Hemoglobin 8.8 g/dL (12.9-16.9); Immature Granulocytes % 0.4 % (0-4); Lymphocytes # 1.7 K/mcL (0.6-4.6); Lymphocytes % 20.4 %; Mean Corpuscular HGB Conc 28.3 g/dL (31.6-35.5); Mean Corpuscular Hemoglobin 20.6 pg (28.0-33.3); Mean Corpuscular Volume 72.8 fL (83.0-100.0); Mean Platelet Volume 10.3 fL (9.4-12.4); Monocytes % 12.2 %; Platelet Count 286 K/mcL (140-400); Red Blood Count 4.27 M/mcL (4.19-5.50); White Blood Count 8.5 K/mcL (4.3-11.1)
[2020-11-26 17:17] LABS: Neutrophils # 5.5 K/mcL (1.6-8.9)
[2020-11-26 17:18] LABS: INR 1.3; Prothrombin Time 15.2 Seconds (9.4-12.1)
[2020-11-26 17:21] LABS: Activated Partial Thrombo Time 37.1 Seconds (26.0-36.0)
[2020-11-26 17:34] LABS: Alanine Aminotransferase 15 Units/L (7-52); Albumin 3.9 g/dL (3.5-5.7); Albumin/Globulin Ratio 1.6 (1.1-2.2); Alkaline Phosphatase 80 Units/L (34-104); Aspartate Amino Transferase 17 Units/L (13-39); BUN/Creatinine Ratio 17 (6-26); Bilirubin,Direct 0.1 mg/dL (0.0-0.2); Bilirubin,Indirect 0.3 mg/dL (0.0-1.0); Bilirubin,Total 0.4 mg/dL (0.3-1.0); Blood Urea Nitrogen 18 mg/dL (8-23); Calcium 8.7 mg/dL (8.6-10.3); Carbon Dioxide 27 mEq/L (23-29); Chloride 108 mEq/L (98-107); Globulin 2.4 g/dL (2.4-3.5); Glucose 90 mg/dL (70-105); Osmolality,Calculated 293 (280-300); Potassium 4.5 mEq/L (3.5-5.1); Sodium 141 mEq/L (136-145); Total Protein 6.3 g/dL (6.4-8.9); eGFR For African Americans > 60 (> 60); eGFR For Non-African Americans > 60 (> 60)
[2020-11-26 17:39] LABS: Hypochromasia Present (Not Present); Ovalocytes 1+ (Not Present)
[2020-11-26 17:41] LABS: Troponin I < 0.03 ng/mL (< 0.04)
[2020-11-26 18:28] LABS: Bilirubin,Urine Negative (Negative); Blood,Urine Negative (Negative); Clarity,Urine Clear (Clear); Color,Urine Light-Yellow (Yellow); Glucose,Urine (UA) Normal (Normal); Ketones,Urine Negative (Negative); Leukocyte Esterase,Urine Negative (Negative); Mucus,Urine Few per lpf (None-Few); Nitrite,Urine Negative (Negative); Protein,Urine 70 mg/dL (Neg-Trace); RBC,Urine 0-3 per hpf (0-3); Specific Gravity,Urine 1.021 (1.010-1.025); Squamous Epithelial Cell,Urine Few per hpf (None-Few); Urobilinogen,Urine Normal (Normal)
[2020-11-26] MEDS ORDERED: Azithromycin 500 MG in 0.9 % Sodium Chloride 250 ML IVPB ONE (18:56)
[2020-11-26] MEDS ORDERED: cefTRIAXone 1,000 MG in Water for inj. (sterile) 10 ML IVP ONE (18:56)
[2020-11-26] MEDS ORDERED: Furosemide 40 MG/4 ML VIAL IVP ONE (19:21)
[2020-11-26] MEDS ORDERED: Melatonin 3 MG TABLET PO PRN (19:28)
[2020-11-26] MEDS ORDERED: Acetaminophen 325 MG TABLET PO PRN (19:28)
[2020-11-26] MEDS ORDERED: Ondansetron 4 MG/2 ML VIAL IVP PRN (19:28)
[2020-11-26] MEDS ORDERED: Naloxone 0.4 MG/ML INJ IVP PRN (19:28)
[2020-11-26 21:44] LABS: Adenovirus Not Detected (Not Detect); Bordetella Pertussis Not Detected (Not Detect); Chlamydophila pneumoniae Not Detected (Not Detect); Coronavirus 229E Not Detected (Not Detect); Coronavirus HKU1 Not Detected (Not Detect); Coronavirus NL63 Not Detected (Not Detect); Coronavirus OC43 Not Detected (Not Detect); Human Metapneumovirus Not Detected (Not Detect); Human Rhinovirus/Enterovirus Not Detected (Not Detect); Influenza A Subtype 2009 H1 Not Detected (Not Detect); Influenza B Not Detected (Not Detect); Mycoplasma pneumoniae Not Detected (Not Detect); Parainfluenza Virus 1 Not Detected (Not Detect); Parainfluenza Virus 2 Not Detected (Not Detect); Parainfluenza Virus 3 Not Detected (Not Detect); Parainfluenza Virus 4 Not Detected (Not Detect); Respiratory Syncytial Virus Not Detected (Not Detect); SARS-CoV-2 Not Detected (Not Detect)
[2020-11-26] MEDS ORDERED: Dextrose Gel 15 GM/37.5 ML TUBE PO PRN ×2 (23:38)
[2020-11-26] MEDS ORDERED: *HR* Dextrose 50 % in Water (Vial) 50 ML VIAL IVP PRN (23:38)
[2020-11-26] MEDS ORDERED: D5% in Water 1,000 ML IVC PRN (23:38)
[2020-11-26] MEDS: Ipratropium/Albuterol Neb 3 ML IH SCH (23:45)
[2020-11-27 00:39] LABS: Hematocrit 30.3 % (37.5-50.1); Hemoglobin 8.7 g/dL (12.9-16.9); Mean Corpuscular HGB Conc 28.7 g/dL (31.6-35.5); Mean Corpuscular Hemoglobin 20.7 pg (28.0-33.3); Mean Platelet Volume 10.3 fL (9.4-12.4); Platelet Count 298 K/mcL (140-400); Red Blood Count 4.21 M/mcL (4.19-5.50); Red Cell Distribution Width 18.6 % (11.5-14.5); White Blood Count 8.1 K/mcL (4.3-11.1)
[2020-11-27 00:50] LABS: BUN/Creatinine Ratio 15 (6-26); Blood Urea Nitrogen 18 mg/dL (8-23); Calcium 8.8 mg/dL (8.6-10.3); Carbon Dioxide 27 mEq/L (23-29); Chloride 105 mEq/L (98-107); Glucose 166 mg/dL (70-105); Osmolality,Calculated 296 (280-300); Sodium 140 mEq/L (136-145); eGFR For African Americans > 60 (> 60); eGFR For Non-African Americans 58 (> 60)
[2020-11-27] MEDS: Ipratropium/Albuterol Neb 3 ML IH SCH ×3 (03:54→11:20)
[2020-11-27] MEDS ORDERED: Insulin LISPRO 300 UNITS/3 ML VIAL SUBQ SCH (07:30)
[2020-11-27] MEDS ORDERED: Apixaban 5 MG TABLET PO SCH (09:00)
[2020-11-27] MEDS ORDERED: Azithromycin 500 MG in 0.9 % Sodium Chloride 250 ML IVPB SCH (09:00)
[2020-11-27] MEDS ORDERED: predniSONE 20 MG TABLET PO SCH (09:00)
[2020-11-27] MEDS ORDERED: lisinopriL 20 MG TABLET PO SCH (09:00)
[2020-11-27 12:44] VITALS: BP 131/64
== END 2020-11-27 15:08 | disposition home health service (06) ==
LOC: 3BNU 16:06 → EMEROOARM 16:06 → SUATTDRO 19:42 → 3BNU 20:30
PROVIDERS: ADMIT Family Medicine; ATTEND Internal Medicine

== ENCOUNTER 2020-12-26 16:00 | Observation (INO) ==
[2020-12-26] MEDS ORDERED: Ipratropium/Albuterol Neb 3 ML IH ONE (16:25)
[2020-12-26] MEDS ORDERED: methylPREDNISolone 125 MG/2 ML VIAL IVP ONE (16:27)
[2020-12-26 16:53] LABS: Basophils % 0.5 %; Eosinophils # 0.3 K/mcL (0.0-0.6); Eosinophils % 3.4 %; Hematocrit 30.8 % (37.5-50.1); Hemoglobin 8.7 g/dL (12.9-16.9); Immature Granulocytes % 0.3 % (0-4); Lymphocytes # 1.9 K/mcL (0.6-4.6); Lymphocytes % 25.4 %; Mean Corpuscular HGB Conc 28.2 g/dL (31.6-35.5); Mean Corpuscular Hemoglobin 19.3 pg (28.0-33.3); Mean Corpuscular Volume 68.3 fL (83.0-100.0); Mean Platelet Volume 9.5 fL (9.4-12.4); Monocytes # 0.9 K/mcL (0.0-1.3); Monocytes % 12.7 %; Platelet Count 344 K/mcL (140-400); Red Blood Count 4.51 M/mcL (4.19-5.50); Red Cell Distribution Width 18.3 % (11.5-14.5); Segmented Neutrophils % 57.7 %; White Blood Count 7.4 K/mcL (4.3-11.1)
[2020-12-26 16:58] LABS: Neutrophils # 4.3 K/mcL (1.6-8.9)
[2020-12-26] MEDS ORDERED: Furosemide 40 MG/4 ML VIAL IVP ONE (17:00)
[2020-12-26 17:07] LABS: Alanine Aminotransferase 13 Units/L (7-52); Albumin 3.8 g/dL (3.5-5.7); Albumin/Globulin Ratio 1.7 (1.1-2.2); Alkaline Phosphatase 85 Units/L (34-104); Aspartate Amino Transferase 14 Units/L (13-39); BUN/Creatinine Ratio 14 (6-26); Bilirubin,Total 0.4 mg/dL (0.3-1.0); Blood Urea Nitrogen 17 mg/dL (8-23); Calcium 8.6 mg/dL (8.6-10.3); Carbon Dioxide 28 mEq/L (23-29); Chloride 106 mEq/L (98-107); Globulin 2.3 g/dL (2.4-3.5); Glucose 141 mg/dL (70-105); Osmolality,Calculated 298 (280-300); Potassium 4.2 mEq/L (3.5-5.1); Sodium 142 mEq/L (136-145); Total Protein 6.1 g/dL (6.4-8.9); Troponin I < 0.03 ng/mL (< 0.04); eGFR For African Americans > 60 (> 60); eGFR For Non-African Americans 58 (> 60)
[2020-12-26 17:18] LABS: Anisocytosis 1+ (Not Present); Hypochromasia Present (Not Present); Platelet Estimate Normal (Normal); Polychromasia 1+ (Not Present)
[2020-12-26] MEDS ORDERED: MOM Conc 10 ML UD.LIQ PO PRN (17:57)
[2020-12-26] MEDS ORDERED: Naloxone 0.4 MG/ML INJ IVP PRN (17:57)
[2020-12-26] MEDS ORDERED: Mag Hydrox/Al Hydrox/Simeth 30 ML UDC PO PRN (17:57)
[2020-12-26] MEDS ORDERED: Ondansetron ODT 4 MG TAB.RAPDIS SL PRN (17:57)
[2020-12-26] MEDS ORDERED: D5% in Water 1,000 ML IVC PRN (18:01)
[2020-12-26] MEDS ORDERED: *HR* Dextrose 50 % in Water (Vial) 50 ML VIAL IVP PRN (18:01)
[2020-12-26] MEDS ORDERED: Dextrose Gel 15 GM/37.5 ML TUBE PO PRN ×2 (18:01)
[2020-12-26] MEDS ORDERED: Ipratropium/Albuterol Neb 3 ML IH PRN (18:03)
[2020-12-26] MEDS ORDERED: Perflutren Lipid Microsphere 1.3 ML in 0.9 % Sodium Chloride 8.7 ML IVP PRN (18:03)
[2020-12-26] MEDS ORDERED: Haloperidol Lactate 5 MG/ML VIAL IVP ONE (19:01)
[2020-12-26] MEDS: Apixaban 5 MG TABLET PO SCH (20:48)
[2020-12-26] MEDS: Azithromycin 500 MG in 0.9 % Sodium Chloride 250 ML IVPB SCH (20:49)
[2020-12-26] MEDS: Insulin LISPRO 300 UNITS/3 ML VIAL SUBQ SCH ×2 (20:53→20:54)
[2020-12-27 06:14] LABS: Mean Platelet Volume 9.9 fL (9.4-12.4)
[2020-12-27 06:15] LABS: Hematocrit 31.6 % (37.5-50.1); Hemoglobin 8.7 g/dL (12.9-16.9); Mean Corpuscular HGB Conc 27.5 g/dL (31.6-35.5); Mean Corpuscular Hemoglobin 18.7 pg (28.0-33.3); Mean Corpuscular Volume 67.8 fL (83.0-100.0); Platelet Count 341 K/mcL (140-400); Red Blood Count 4.66 M/mcL (4.19-5.50); Red Cell Distribution Width 18.3 % (11.5-14.5); White Blood Count 6.9 K/mcL (4.3-11.1)
[2020-12-27 06:43] LABS: Alanine Aminotransferase 12 Units/L (7-52); Albumin 3.6 g/dL (3.5-5.7); Albumin/Globulin Ratio 1.4 (1.1-2.2); Alkaline Phosphatase 80 Units/L (34-104); Aspartate Amino Transferase 13 Units/L (13-39); BUN/Creatinine Ratio 16 (6-26); Bilirubin,Total 0.5 mg/dL (0.3-1.0); Blood Urea Nitrogen 20 mg/dL (8-23); Calcium 8.6 mg/dL (8.6-10.3); Carbon Dioxide 29 mEq/L (23-29); Chloride 106 mEq/L (98-107); Globulin 2.5 g/dL (2.4-3.5); Glucose 182 mg/dL (70-105); Osmolality,Calculated 299 (280-300); Potassium 3.9 mEq/L (3.5-5.1); Sodium 141 mEq/L (136-145); Total Protein 6.1 g/dL (6.4-8.9); eGFR For African Americans > 60 (> 60); eGFR For Non-African Americans 56 (> 60)
[2020-12-27] MEDS ORDERED: Melatonin 3 MG TABLET PO PRN (07:44)
[2020-12-27] MEDS: DilTIAZem CD (24hr) 120 MG CAP.ER.24H PO SCH (09:10)
[2020-12-27] MEDS: Multivit/Ca/Min/Fe/FA 1 TAB TABLET PO SCH (09:10)
[2020-12-27] MEDS: Apixaban 5 MG TABLET PO SCH ×2 (09:11→20:02)
[2020-12-27] MEDS: predniSONE 20 MG TABLET PO SCH (09:11)
[2020-12-27] MEDS: Metoprolol 100 MG TABLET PO SCH (09:11)
[2020-12-27] MEDS: Furosemide 40 MG/4 ML VIAL IVP SCH (09:11)
[2020-12-27] MEDS: Insulin LISPRO 300 UNITS/3 ML VIAL SUBQ SCH ×4 (09:16→20:03)
[2020-12-27] MEDS: Azithromycin 500 MG in 0.9 % Sodium Chloride 250 ML IVPB SCH (17:49)
[2020-12-28 02:14] LABS: Hematocrit 30.6 % (37.5-50.1); Hemoglobin 8.6 g/dL (12.9-16.9); Mean Corpuscular HGB Conc 28.1 g/dL (31.6-35.5); Mean Corpuscular Hemoglobin 19.1 pg (28.0-33.3); Mean Corpuscular Volume 67.8 fL (83.0-100.0); Mean Platelet Volume 9.9 fL (9.4-12.4); Platelet Count 365 K/mcL (140-400); Red Blood Count 4.51 M/mcL (4.19-5.50); Red Cell Distribution Width 18.1 % (11.5-14.5); White Blood Count 15.1 K/mcL (4.3-11.1)
[2020-12-28 02:31] LABS: BUN/Creatinine Ratio 23 (6-26); Blood Urea Nitrogen 28 mg/dL (8-23); Calcium 8.4 mg/dL (8.6-10.3); Carbon Dioxide 27 mEq/L (23-29); Chloride 102 mEq/L (98-107); Glucose 182 mg/dL (70-105); Magnesium 2.1 mg/dL (1.6-2.6); Osmolality,Calculated 296 (280-300); Phosphorous 3.2 mg/dL (2.7-4.5); Potassium 3.7 mEq/L (3.5-5.1); Sodium 138 mEq/L (136-145); eGFR For African Americans > 60 (> 60); eGFR For Non-African Americans 57 (> 60)
[2020-12-28] MEDS: Insulin LISPRO 300 UNITS/3 ML VIAL SUBQ SCH ×2 (07:21→11:42)
[2020-12-28] MEDS: Furosemide 40 MG/4 ML VIAL IVP SCH (08:05)
[2020-12-28] MEDS: Apixaban 5 MG TABLET PO SCH (08:06)
[2020-12-28] MEDS: DilTIAZem CD (24hr) 120 MG CAP.ER.24H PO SCH (08:06)
[2020-12-28] MEDS: Multivit/Ca/Min/Fe/FA 1 TAB TABLET PO SCH (08:06)
[2020-12-28] MEDS: Metoprolol 100 MG TABLET PO SCH (08:06)
[2020-12-28] MEDS: predniSONE 20 MG TABLET PO SCH (08:06)
[2020-12-28 15:37] VITALS: BP 171/75
== END 2020-12-28 16:15 | disposition home health service (06) ==
LOC: EMEROOARM 16:00 → 2ANU 16:00 → SUATTDRO 17:50 → 2ANU 19:13
PROVIDERS: ADMIT Internal Medicine; ATTEND Internal Medicine

== ENCOUNTER 2021-04-10 15:20 | Observation (INO) ==
[2021-04-10] MEDS ORDERED: Furosemide 40 MG/4 ML VIAL IVP ONE (21:22)
[2021-04-10] MEDS ORDERED: Naloxone 0.4 MG/ML INJ IVP PRN (22:24)
[2021-04-10] MEDS ORDERED: Acetaminophen 325 MG TABLET PO PRN (22:24)
[2021-04-11 05:31] LABS: Hematocrit 40.3 % (37.5-50.1); Hemoglobin 12.8 g/dL (12.9-16.9); Mean Corpuscular HGB Conc 31.8 g/dL (31.6-35.5); Mean Corpuscular Hemoglobin 26.9 pg (28.0-33.3); Mean Corpuscular Volume 84.7 fL (83.0-100.0); Mean Platelet Volume 9.4 fL (9.4-12.4); Platelet Count 234 K/mcL (140-400); Red Blood Count 4.76 M/mcL (4.19-5.50); Red Cell Distribution Width 21.3 % (11.5-14.5); White Blood Count 7.9 K/mcL (4.3-11.1)
[2021-04-11 05:57] LABS: BUN/Creatinine Ratio 10 (6-26); Blood Urea Nitrogen 12 mg/dL (8-23); Calcium 8.7 mg/dL (8.6-10.3); Carbon Dioxide 31 mEq/L (23-29); Chloride 102 mEq/L (98-107); Glucose 95 mg/dL (70-105); Osmolality,Calculated 290 (280-300); Potassium 3.6 mEq/L (3.5-5.1); Sodium 140 mEq/L (136-145); Troponin I < 0.03 ng/mL (< 0.04); eGFR For African Americans > 60 (> 60); eGFR For Non-African Americans 60 (> 60)
[2021-04-11] MEDS: Furosemide 40 MG/4 ML VIAL IVP SCH (09:11)
[2021-04-11] MEDS: lisinopriL 20 MG TABLET PO SCH (22:13)
[2021-04-11] MEDS: Apixaban 5 MG TABLET PO SCH (22:13)
[2021-04-11] MEDS: Budesonide/Formoterol 160/4.5 1 PUFF INH IH SCH (22:47)
[2021-04-12 01:28] LABS: Basophils % 0.2 %; Eosinophils # 0.1 K/mcL (0.0-0.6); Eosinophils % 1.7 %; Hematocrit 41.7 % (37.5-50.1); Hemoglobin 13.5 g/dL (12.9-16.9); Immature Granulocytes % 0.1 % (0-4); Lymphocytes # 2.1 K/mcL (0.6-4.6); Lymphocytes % 25.1 %; Mean Corpuscular HGB Conc 32.4 g/dL (31.6-35.5); Mean Corpuscular Hemoglobin 27.4 pg (28.0-33.3); Mean Corpuscular Volume 84.8 fL (83.0-100.0); Mean Platelet Volume 9.7 fL (9.4-12.4); Monocytes # 1.2 K/mcL (0.0-1.3); Monocytes % 14.6 %; Neutrophils # 4.9 K/mcL (1.6-8.9); Platelet Count 261 K/mcL (140-400); Red Blood Count 4.92 M/mcL (4.19-5.50); Red Cell Distribution Width 20.9 % (11.5-14.5); Segmented Neutrophils % 58.3 %; White Blood Count 8.4 K/mcL (4.3-11.1)
[2021-04-12 01:43] LABS: Calcium 8.9 mg/dL (8.6-10.3)
[2021-04-12 07:31] VITALS: TEMP 98.3
[2021-04-12] MEDS: lisinopriL 20 MG TABLET PO SCH (07:47)
[2021-04-12] MEDS: Apixaban 5 MG TABLET PO SCH (07:47)
[2021-04-12] MEDS: Furosemide 40 MG/4 ML VIAL IVP SCH (07:48)
[2021-04-12] MEDS ORDERED: DilTIAZem CD (24hr) 120 MG CAP.ER.24H PO SCH (09:00)
[2021-04-12] MEDS ORDERED: Isosorbide MONOnitrate (24 HR) 30 MG TAB.ER.24H PO SCH (09:00)
[2021-04-12] MEDS ORDERED: Azithromycin 250 MG TABLET PO SCH (09:00)
[2021-04-12] MEDS ORDERED: cefTRIAXone 1,000 MG in Water for inj. (sterile) 10 ML IVP SCH (09:00)
[2021-04-12] MEDS: Budesonide/Formoterol 160/4.5 1 PUFF INH IH SCH (09:36)
[2021-04-12 11:01] VITALS: BP 101/49; PULSE 56; O2SAT 93
== END 2021-04-12 14:45 | disposition home or self-care (01) ==
LOC: EMEROOARM 15:20 → 3NENU 15:20 → SUATTDRO 22:14 → 3NENU 22:55 → CDU 04-11 01:54 → 2ANU 04-11 17:47
PROVIDERS: ADMIT Internal Medicine; ATTEND Student in an Organized Health Care Education/Training Program

== ENCOUNTER 2022-01-20 19:49 | Inpatient (IN) ==
[2022-01-20 20:35] LABS: Basophils % 0.2 %; Eosinophils # 0.1 K/mcL (0.0-0.6); Eosinophils % 0.3 %; Hematocrit 39.7 % (37.5-50.1); Hemoglobin 13.1 g/dL (12.9-16.9); Immature Granulocytes % 0.3 % (0-4); Lymphocytes # 2.5 K/mcL (0.6-4.6); Lymphocytes % 16.1 %; Mean Corpuscular Hemoglobin 28.9 pg (28.0-33.3); Mean Corpuscular Volume 87.6 fL (83.0-100.0); Mean Platelet Volume 9.9 fL (9.4-12.4); Monocytes # 1.5 K/mcL (0.0-1.3); Monocytes % 9.4 %; Neutrophils # 11.7 K/mcL (1.6-8.9); Platelet Count 308 K/mcL (140-400); Red Blood Count 4.53 M/mcL (4.19-5.50); Red Cell Distribution Width 13.4 % (11.5-14.5); Segmented Neutrophils % 73.7 %; White Blood Count 15.8 K/mcL (4.3-11.1)
[2022-01-20 20:41] LABS: BUN/Creatinine Ratio 12 (6-26); Blood Urea Nitrogen 19 mg/dL (8-23); Calcium 9.3 mg/dL (8.6-10.3); Carbon Dioxide 30 mEq/L (23-29); Chloride 98 mEq/L (98-107); Glucose 109 mg/dL (70-105); Osmolality,Calculated 285 (280-300); Potassium 3.9 mEq/L (3.5-5.1); Sodium 136 mEq/L (136-145); Troponin I < 0.03 ng/mL (< 0.04); eGFR For African Americans 52 (> 60); eGFR For Non-African Americans 43 (> 60)
[2022-01-20 21:29] LABS: Bacteria,Urine Few per hpf (None-Few); Bilirubin,Urine Negative (Negative); Blood,Urine Large (Negative); Calcium Oxalate Crystals,Urine Present per hpf; Clarity,Urine Turbid (Clear); Color,Urine Yellow (Yellow); Glucose,Urine (UA) Normal (Normal); Hyaline Casts,Urine Few per lpf (None Seen); Ketones,Urine Negative (Negative); Leukocyte Esterase,Urine Large (Negative); Nitrite,Urine Negative (Negative); Protein,Urine Trace mg/dL (Neg-Trace); RBC,Urine TNTC per hpf (0-3); Specific Gravity,Urine 1.014 (1.010-1.025); Squamous Epithelial Cell,Urine Few per hpf (None-Few); Urobilinogen,Urine Normal (Normal); WBC,Urine 50-100 per hpf (0-3)
[2022-01-20 21:40] LABS: Influenza A PCR Negative (Negative); Influenza B PCR Negative (Negative); Resp. Syncytial Virus PCR Negative (Negative)
[2022-01-20 21:43] LABS: SARS-CoV-2 by PCR (In House) Negative (Negative)
[2022-01-20] MEDS ORDERED: Azithromycin 500 MG in 0.9 % Sodium Chloride 250 ML IVPB ONE (23:49)
[2022-01-20] MEDS ORDERED: cefTRIAXone 2,000 MG in 0.9 % Sodium Chloride 20 ML IVP ONE (23:49)
[2022-01-20] MEDS ORDERED: Ondansetron ODT 4 MG TAB.RAPDIS SL PRN (23:57)
[2022-01-20] MEDS ORDERED: Naloxone 0.4 MG/ML INJ IVP PRN (23:57)
[2022-01-20] MEDS ORDERED: *HR* OxyCODONE Immed Rel 5 MG TABLET PO PRN (23:57)
[2022-01-20] MEDS ORDERED: *HR* HYDROcodone/Acet 5/325 mg TABLET PO PRN (23:57)
[2022-01-20] MEDS ORDERED: Acetaminophen 325 MG TABLET PO PRN (23:57)
[2022-01-21] MEDS ORDERED: *HR* Dextrose 50 % in Water (Syg) 50 ML SYRINGE IVP PRN (00:08)
[2022-01-21] MEDS ORDERED: D5% in Water 1,000 ML IVC PRN (00:08)
[2022-01-21] MEDS ORDERED: Dextrose 4 GM Chewable Tablets PO PRN ×2 (00:08)
[2022-01-21] MEDS ORDERED: Ipratropium/Albuterol Neb 3 ML IH PRN (00:32)
[2022-01-21] MEDS ORDERED: Azithromycin 500 MG in 0.9 % Sodium Chloride 250 ML IVPB SCH (01:00)
[2022-01-21 03:28] LABS: Basophils % 0.1 %; Eosinophils % 0.3 %; Hematocrit 37.2 % (37.5-50.1); Hemoglobin 12.3 g/dL (12.9-16.9); Immature Granulocytes % 0.4 % (0-4); Lymphocytes # 2.5 K/mcL (0.6-4.6); Lymphocytes % 16.7 %; Mean Corpuscular HGB Conc 33.1 g/dL (31.6-35.5); Mean Corpuscular Hemoglobin 28.9 pg (28.0-33.3); Mean Corpuscular Volume 87.5 fL (83.0-100.0); Monocytes # 1.6 K/mcL (0.0-1.3); Neutrophils # 10.5 K/mcL (1.6-8.9); Platelet Count 292 K/mcL (140-400); Red Blood Count 4.25 M/mcL (4.19-5.50); Red Cell Distribution Width 13.5 % (11.5-14.5); Segmented Neutrophils % 71.5 %; White Blood Count 14.7 K/mcL (4.3-11.1)
[2022-01-21 03:50] LABS: Calcium 9.1 mg/dL (8.6-10.3); Magnesium 1.9 mg/dL (1.6-2.6); Phosphorous 4.1 mg/dL (2.7-4.5); Potassium 3.9 mEq/L (3.5-5.1)
[2022-01-21 04:04] LABS: Adenovirus Not Detected (Not Detect); Bordetella Pertussis Not Detected (Not Detect); Chlamydophila pneumoniae Not Detected (Not Detect); Coronavirus 229E Not Detected (Not Detect); Coronavirus HKU1 Not Detected (Not Detect); Coronavirus NL63 Not Detected (Not Detect); Coronavirus OC43 Not Detected (Not Detect); Human Metapneumovirus Not Detected (Not Detect); Human Rhinovirus/Enterovirus Not Detected (Not Detect); Influenza A Subtype 2009 H1 Not Detected (Not Detect); Influenza B Not Detected (Not Detect); Mycoplasma pneumoniae Not Detected (Not Detect); Parainfluenza Virus 1 Not Detected (Not Detect); Parainfluenza Virus 2 Not Detected (Not Detect); Parainfluenza Virus 3 Not Detected (Not Detect); Parainfluenza Virus 4 Not Detected (Not Detect); Respiratory Syncytial Virus Not Detected (Not Detect); SARS-CoV-2 Not Detected (Not Detect)
[2022-01-21] MEDS: methylPREDNISolone 125 MG/2 ML VIAL IVP SCH ×2 (05:26→17:16)
[2022-01-21] MEDS: Insulin LISPRO 300 UNITS/3 ML VIAL SUBQ SCH ×4 (07:47→20:51)
[2022-01-21] MEDS: Azithromycin 500 MG in 0.9 % Sodium Chloride 250 ML IVPB SCH (08:38)
[2022-01-21] MEDS: cefTRIAXone 2,000 MG in 0.9 % Sodium Chloride 20 ML IVP SCH (17:16)
[2022-01-22] MEDS: methylPREDNISolone 125 MG/2 ML VIAL IVP SCH (05:13)
[2022-01-22 05:20] LABS: Basophils % 0.1 %; Hematocrit 39.7 % (37.5-50.1); Hemoglobin 13.5 g/dL (12.9-16.9); Immature Granulocytes % 1.4 % (0-4); Lymphocytes # 1.3 K/mcL (0.6-4.6); Lymphocytes % 8.5 %; Mean Corpuscular Hemoglobin 29.2 pg (28.0-33.3); Mean Corpuscular Volume 85.7 fL (83.0-100.0); Monocytes # 0.7 K/mcL (0.0-1.3); Monocytes % 4.6 %; Neutrophils # 12.6 K/mcL (1.6-8.9); Platelet Count 327 K/mcL (140-400); Red Blood Count 4.63 M/mcL (4.19-5.50); Red Cell Distribution Width 12.9 % (11.5-14.5); Segmented Neutrophils % 85.4 %; White Blood Count 14.8 K/mcL (4.3-11.1)
[2022-01-22 05:24] LABS: BUN/Creatinine Ratio 19 (6-26); Blood Urea Nitrogen 23 mg/dL (8-23); Calcium 9.2 mg/dL (8.6-10.3); Carbon Dioxide 27 mEq/L (23-29); Chloride 100 mEq/L (98-107); Glucose 191 mg/dL (70-105); Osmolality,Calculated 293 (280-300); Potassium 3.9 mEq/L (3.5-5.1); Sodium 137 mEq/L (136-145); eGFR For African Americans > 60 (> 60); eGFR For Non-African Americans 58 (> 60)
[2022-01-22] MEDS: Insulin LISPRO 300 UNITS/3 ML VIAL SUBQ SCH ×4 (07:18→19:51)
[2022-01-22] MEDS ORDERED: Nitroglycerin 0.4 MG TAB.SUBL SL PRN (08:51)
[2022-01-22] MEDS ORDERED: Aspirin 81 MG TAB.CHEW PO SCH (09:00)
[2022-01-22] MEDS: Multivit/Ca/Min/Fe/FA 1 TAB TABLET PO SCH (09:22)
[2022-01-22] MEDS: predniSONE 20 MG TABLET PO SCH (09:23)
[2022-01-22] MEDS: DilTIAZem CD (24hr) 120 MG CAP.ER.24H PO SCH (09:23)
[2022-01-22] MEDS: Isosorbide MONOnitrate (24 HR) 30 MG TAB.ER.24H PO SCH (09:23)
[2022-01-22] MEDS: Azithromycin 500 MG in 0.9 % Sodium Chloride 250 ML IVPB SCH (09:24)
[2022-01-22] MEDS: Apixaban 5 MG TABLET PO SCH ×2 (09:24→19:48)
[2022-01-22] MEDS: levETIRAcetam 250 MG TABLET PO SCH ×2 (09:24→19:48)
[2022-01-22] MEDS: Furosemide 40 MG TABLET PO SCH ×2 (09:24→19:48)
[2022-01-22] MEDS: lisinopriL 5 MG TABLET PO SCH ×2 (09:24→19:48)
[2022-01-22 13:14] LABS: A.calcoaceticus-baumannii cplx Not Detected (Not Detect); Bacteroides fragilis by PCR Not Detected (Not Detect); Candida albicans by PCR Not Detected (Not Detect); Candida auris by PCR Not Detected (Not Detect); Candida glabrata by PCR Not Detected (Not Detect); Candida krusei by PCR Not Detected (Not Detect); Candida parapsilosis by PCR Not Detected (Not Detect); Candida tropicalis by PCR Not Detected (Not Detect); Crypto. neoformans/gattii PCR Not Detected (Not Detect); Enterobacter cloacae Cmplx PCR Not Detected (Not Detect); Enterobacterales by PCR Not Detected (Not Detect); Enterococcus faecalis by PCR Not Detected (Not Detect); Enterococcus faecium by PCR Not Detected (Not Detect); Escherichia coli by PCR Not Detected (Not Detect); Klebs. pneumoniae group by PCR Not Detected (Not Detect); Klebsiella aerogenes by PCR Not Detected (Not Detect); Klebsiella oxytoca by PCR Not Detected (Not Detect); Proteus by PCR Not Detected (Not Detect); Pseudomonas aeruginosa by PCR Not Detected (Not Detect); Salmonella species by PCR Not Detected (Not Detect); Serratia marcescens by PCR Not Detected (Not Detect); Staph epidermidis by PCR Not Detected (Not Detect); Staph lugdunensis by PCR Not Detected (Not Detect); Staphylococcus aureus by PCR Not Detected (Not Detect); Staphylococcus by PCR DETECTED (Not Detect); Stenotrophomonas maltophilia Not Detected (Not Detect); Streptococcus agalactiae(B)PCR Not Detected (Not Detect); Streptococcus by PCR Not Detected (Not Detect); Streptococcus pneumoniae PCR Not Detected (Not Detect); Streptococcus pyogenes (A) PCR Not Detected (Not Detect)
[2022-01-22] MEDS: cefTRIAXone 2,000 MG in 0.9 % Sodium Chloride 20 ML IVP SCH (17:06)
[2022-01-22] MEDS: levoFLOXacin 750 MG/150 ML 750 MG/150 ML BAG IVPB SCH (17:58)
[2022-01-22] MEDS: Vancomycin 1,500 MG/265 ML IV.SOLN IVPB SCH (19:49)
[2022-01-23 07:17] LABS: Basophils % 0.2 %; Hematocrit 38.6 % (37.5-50.1); Hemoglobin 12.6 g/dL (12.9-16.9); Immature Granulocytes % 0.9 % (0-4); Lymphocytes # 1.4 K/mcL (0.6-4.6); Lymphocytes % 7.5 %; Mean Corpuscular HGB Conc 32.6 g/dL (31.6-35.5); Mean Corpuscular Hemoglobin 28.3 pg (28.0-33.3); Mean Corpuscular Volume 86.5 fL (83.0-100.0); Mean Platelet Volume 9.9 fL (9.4-12.4); Monocytes # 1.1 K/mcL (0.0-1.3); Monocytes % 5.8 %; Neutrophils # 16.3 K/mcL (1.6-8.9); Platelet Count 360 K/mcL (140-400); Red Blood Count 4.46 M/mcL (4.19-5.50); Red Cell Distribution Width 12.9 % (11.5-14.5); Segmented Neutrophils % 85.6 %; White Blood Count 19.1 K/mcL (4.3-11.1)
[2022-01-23 07:38] LABS: BUN/Creatinine Ratio 22 (6-26); Blood Urea Nitrogen 26 mg/dL (8-23); Calcium 9.2 mg/dL (8.6-10.3); Carbon Dioxide 27 mEq/L (23-29); Chloride 102 mEq/L (98-107); Glucose 127 mg/dL (70-105); Osmolality,Calculated 292 (280-300); Potassium 3.9 mEq/L (3.5-5.1); Sodium 138 mEq/L (136-145); eGFR For African Americans > 60 (> 60); eGFR For Non-African Americans 59 (> 60)
[2022-01-23] MEDS: Insulin LISPRO 300 UNITS/3 ML VIAL SUBQ SCH ×4 (07:39→20:45)
[2022-01-23] MEDS: DilTIAZem CD (24hr) 120 MG CAP.ER.24H PO SCH (08:57)
[2022-01-23] MEDS: Multivit/Ca/Min/Fe/FA 1 TAB TABLET PO SCH (08:57)
[2022-01-23] MEDS: Isosorbide MONOnitrate (24 HR) 30 MG TAB.ER.24H PO SCH (08:57)
[2022-01-23] MEDS: levETIRAcetam 250 MG TABLET PO SCH ×2 (08:57→20:44)
[2022-01-23] MEDS: lisinopriL 5 MG TABLET PO SCH ×2 (08:57→20:43)
[2022-01-23] MEDS: predniSONE 20 MG TABLET PO SCH (08:58)
[2022-01-23] MEDS: Apixaban 5 MG TABLET PO SCH ×2 (08:58→20:44)
[2022-01-23] MEDS: Furosemide 40 MG TABLET PO SCH ×2 (08:58→20:44)
[2022-01-23] MEDS: levoFLOXacin 750 MG/150 ML 750 MG/150 ML BAG IVPB SCH (17:28)
[2022-01-23] MEDS: Vancomycin 1,500 MG/265 ML IV.SOLN IVPB SCH (20:43)
[2022-01-23] MEDS: Melatonin 3 MG TABLET PO PRN (20:44)
[2022-01-24 07:00] LABS: Basophils % 0.1 %; Hematocrit 37.9 % (37.5-50.1); Hemoglobin 12.6 g/dL (12.9-16.9); Immature Granulocytes % 0.8 % (0-4); Lymphocytes # 2.2 K/mcL (0.6-4.6); Lymphocytes % 15.7 %; Mean Corpuscular HGB Conc 33.2 g/dL (31.6-35.5); Mean Corpuscular Hemoglobin 28.8 pg (28.0-33.3); Mean Corpuscular Volume 86.7 fL (83.0-100.0); Mean Platelet Volume 9.3 fL (9.4-12.4); Monocytes # 1.2 K/mcL (0.0-1.3); Monocytes % 8.5 %; Neutrophils # 10.7 K/mcL (1.6-8.9); Platelet Count 331 K/mcL (140-400); Red Blood Count 4.37 M/mcL (4.19-5.50); Segmented Neutrophils % 74.9 %; White Blood Count 14.3 K/mcL (4.3-11.1)
[2022-01-24 07:19] LABS: BUN/Creatinine Ratio 20 (6-26); Blood Urea Nitrogen 23 mg/dL (8-23); Calcium 8.9 mg/dL (8.6-10.3); Carbon Dioxide 31 mEq/L (23-29); Chloride 106 mEq/L (98-107); Glucose 102 mg/dL (70-105); Osmolality,Calculated 298 (280-300); Potassium 3.9 mEq/L (3.5-5.1); Sodium 142 mEq/L (136-145); eGFR For African Americans > 60 (> 60); eGFR For Non-African Americans > 60 (> 60)
[2022-01-24] MEDS: Insulin LISPRO 300 UNITS/3 ML VIAL SUBQ SCH ×4 (08:39→20:28)
[2022-01-24] MEDS: predniSONE 20 MG TABLET PO SCH (08:57)
[2022-01-24] MEDS: Multivit/Ca/Min/Fe/FA 1 TAB TABLET PO SCH (08:57)
[2022-01-24] MEDS: Furosemide 40 MG TABLET PO SCH ×2 (08:57→20:27)
[2022-01-24] MEDS: DilTIAZem CD (24hr) 120 MG CAP.ER.24H PO SCH (08:57)
[2022-01-24] MEDS: lisinopriL 5 MG TABLET PO SCH ×2 (08:57→20:27)
[2022-01-24] MEDS: levETIRAcetam 250 MG TABLET PO SCH ×2 (08:57→20:27)
[2022-01-24] MEDS: Apixaban 5 MG TABLET PO SCH ×2 (08:57→20:27)
[2022-01-24] MEDS: Isosorbide MONOnitrate (24 HR) 30 MG TAB.ER.24H PO SCH (08:57)
[2022-01-24] MEDS: Insulin DETEMIR 100 UNIT/ML X5UNITS SUBQ SCH ×2 (09:07→20:27)
[2022-01-24] MEDS: levoFLOXacin 750 MG/150 ML 750 MG/150 ML BAG IVPB SCH (17:04)
[2022-01-24] MEDS: Vancomycin 1,500 MG/265 ML IV.SOLN IVPB SCH ×2 (17:05→18:55)
[2022-01-24] MEDS: Melatonin 3 MG TABLET PO PRN (20:27)
[2022-01-25] MEDS: Insulin LISPRO 300 UNITS/3 ML VIAL SUBQ SCH ×4 (08:00→19:59)
[2022-01-25] MEDS: levETIRAcetam 250 MG TABLET PO SCH ×2 (08:01→20:01)
[2022-01-25] MEDS: Apixaban 5 MG TABLET PO SCH ×2 (08:01→19:59)
[2022-01-25] MEDS: predniSONE 20 MG TABLET PO SCH (08:01)
[2022-01-25] MEDS: Multivit/Ca/Min/Fe/FA 1 TAB TABLET PO SCH (08:01)
[2022-01-25] MEDS: Isosorbide MONOnitrate (24 HR) 30 MG TAB.ER.24H PO SCH (08:01)
[2022-01-25] MEDS: DilTIAZem CD (24hr) 120 MG CAP.ER.24H PO SCH (08:01)
[2022-01-25] MEDS: lisinopriL 5 MG TABLET PO SCH ×2 (08:01→19:58)
[2022-01-25] MEDS: Furosemide 40 MG TABLET PO SCH ×2 (08:01→19:58)
[2022-01-25] MEDS: Insulin DETEMIR 100 UNIT/ML X5UNITS SUBQ SCH ×2 (08:03→19:59)
[2022-01-25] MEDS: amLODIPine 5 MG TABLET PO SCH (09:39)
[2022-01-25] MEDS ORDERED: predniSONE 20 MG TABLET PO SCH (10:00)
[2022-01-25] MEDS: levoFLOXacin 750 MG/150 ML 750 MG/150 ML BAG IVPB SCH (17:10)
[2022-01-25] MEDS ORDERED: Vancomycin 1,750 MG/517.5 ML IV.SOLN IVPB SCH (19:00)
[2022-01-26] MEDS: Nystatin POWDER 30 GM BOTTLE TP SCH ×3 (04:47→15:40)
[2022-01-26] MEDS: amLODIPine 5 MG TABLET PO SCH (07:51)
[2022-01-26] MEDS: Furosemide 40 MG TABLET PO SCH (07:51)
[2022-01-26] MEDS: Apixaban 5 MG TABLET PO SCH (07:51)
[2022-01-26] MEDS: levETIRAcetam 250 MG TABLET PO SCH (07:52)
[2022-01-26] MEDS: Multivit/Ca/Min/Fe/FA 1 TAB TABLET PO SCH (07:52)
[2022-01-26] MEDS: Insulin LISPRO 300 UNITS/3 ML VIAL SUBQ SCH ×3 (07:52→16:32)
[2022-01-26] MEDS: Isosorbide MONOnitrate (24 HR) 30 MG TAB.ER.24H PO SCH (07:52)
[2022-01-26] MEDS: lisinopriL 5 MG TABLET PO SCH (07:52)
[2022-01-26] MEDS: DilTIAZem CD (24hr) 120 MG CAP.ER.24H PO SCH (07:52)
[2022-01-26 08:33] LABS: eGFR For African Americans > 60 (> 60); eGFR For Non-African Americans 56 (> 60)
[2022-01-26] MEDS ORDERED: Insulin DETEMIR 100 UNIT/ML X5UNITS SUBQ SCH (09:00)
[2022-01-26] MEDS ORDERED: Lactobacillus 1 EACH CAP.SPRINK PO SCH (09:00)
[2022-01-26 12:04] VITALS: BP 118/57
[2022-01-26] MEDS ORDERED: Nicotine 21 MG PATCH.TD24 TD SCH (15:00)
[2022-01-26 16:27] VITALS: PULSE 53; TEMP 98; O2SAT 93
[2022-01-26] MEDS: levoFLOXacin 750 MG/150 ML 750 MG/150 ML BAG IVPB SCH (17:14)
[2022-01-26 17:36] LABS: Adenovirus Not Detected (Not Detect); Bordetella Pertussis Not Detected (Not Detect); Chlamydophila pneumoniae Not Detected (Not Detect); Coronavirus 229E Not Detected (Not Detect); Coronavirus HKU1 Not Detected (Not Detect); Coronavirus NL63 Not Detected (Not Detect); Coronavirus OC43 Not Detected (Not Detect); Human Metapneumovirus Not Detected (Not Detect); Human Rhinovirus/Enterovirus Not Detected (Not Detect); Influenza A Subtype 2009 H1 Not Detected (Not Detect); Influenza B Not Detected (Not Detect); Mycoplasma pneumoniae Not Detected (Not Detect); Parainfluenza Virus 1 Not Detected (Not Detect); Parainfluenza Virus 2 Not Detected (Not Detect); Parainfluenza Virus 3 Not Detected (Not Detect); Parainfluenza Virus 4 Not Detected (Not Detect); Respiratory Syncytial Virus Not Detected (Not Detect); SARS-CoV-2 Not Detected (Not Detect)
== END 2022-01-26 18:52 | DRG 871 ==
LOC: 2ANU 19:49 → EMEROOARM 19:49 → SUATTDRO 01-21 00:05 → 2ANU 01-21 01:06
PROVIDERS: ADMIT Family Medicine; ATTEND Internal Medicine